=== PATIENT | female | born 1990 | race Caucasian/White ===

== ENCOUNTER 2022-05-23 11:04 | Outpatient (CLI) | payer OTHER, SELFPAY ==
--- OUTSIDE RECORDS SUMMARY | 2022-05-23 11:08 | XMS_ITS | Encounter Summary ---
:1990 Author Organization [facility] Address [address] [place] [address] Care Team Providers Name Role Phone Lashaun Kebede APRN, C.N.P., M.S.N. Primary Care Provi vane Encounter Details Date Type Department Care Team Description 08/24/2019 Nurse Triage Department of [facility] Ashley Wills, RRodrigueNRodrigue [facility] in [place], [place] [address] [place] [address] Social History Tobacco Use Types Packs/Day Years Used Date Smoking Tobacco: Never Smokeless Tobacco: Never Alcohol Use Standard Drinks/Week Comments Yes 2 (1 standard drink = 0.6 oz pure alcoho l) Alcohol Habits Answer Date Recorded How often do you have a drink containing alcohol? 2-4 times a month 05/02/2019 How many drinks containing alcohol do you have on a 1 or 2 05/02/2019 typical day when you are drinking? How often do you have six or more drinks on one Less than mo nthly 05/02/2019 occasion? Social Isolation Answer Date Recorded In a typical week, how many times do you More than three deb es a week 05/02/2019 talk on the phone with family, friends, or neighbors? How often do you get together with friends Twice a week 05/02/2019 or relatives? How often do you attend hindu or Never 2018 christianity services? Do you belong to any clubs or Yes 05/02/2019 organizations such as hindu groups, unions, fraternal or athletic groups, or school groups? How often do you attend meetings of the 1 to 4 times per yea r 05/02/2019 clubs or organizations you belong to? Are you now , , , 05/02/2019 , never or living with a partner? Physical Activity Answer Date Recorded On average, how many days per week do you engage in moderate to 2 days 05/02/2019 strenuous exercise (like walking fast, running, jogging, dancing, swimming, biking, or other activities that cause a light or heavy sweat)? On average, how many minutes do you engage in exercise at th is 30 min 05/02/2019 level? Stress Answer Date Recorded Do you feel stress - tense, restless, nervous, or anxious, R ather much 05/02/2019 or unable to sleep at night because your mind is troubled all the time - these days? Financial Resource Strain Answer Date Recorded How hard is it for you to pay for the very basics like [employer] hat hard 05/02/2019 food, housing, medical care, and heating? Intimate Partner Violence Answer Date Recorded Within the last year, have you been afraid of your partner o r No 05/02/2019 ex-partner? Within the last year, have you been humiliated or emotionall y No 05/02/2019 abused in other ways by your partner or ex-partner? Within the last year, have you been kicked, hit, slapped, or No 05/02/2019 otherwise physically hurt by your partner or ex-partner? Within the last year, have you been raped or forced to have any No 05/02/2019 kind of sexual activity by your partner or ex-partner? Food Insecurity Answer Date Recorded Within the past 12 months, you worried that your food would Never true 05/02/2019 run out before you got money to buy more. Within the past 12 months, the food you bought just didn't N ever true 05/02/2019 last and you didn't have money to get more. Transportation Needs Answer Date Recorded In the past 12 months, has lack of transportation kept you f rom No 05/02/2019 medical appointments or from getting medications? In the past 12 months, has lack of transportation kept you f rom No 05/02/2019 meetings, work, or getting things needed for daily living? Education Answer Date Recorded What is the highest level of school you have completed or 12 th grade 05/02/2019 the highest degree you have received? Sex Assigned at Date Recorded Female 08/04/2017 12:14 PM DYNAMICS AX TECHNICAL ARCHITECT documented as of this encounter Plan of Treatment Not on filedocumented as of this encounter Visit Diagnoses Not on filedocumented in this encounter Additional Health Concerns Assessment Noted Time PHQ-9 Depression Total Score: 05/06/2019 9:33 AM CD T documented as of this encounter Care Teams Sleeve Bottom Feller Relationship Specialty Start Date End Date Lashaun Kebede APRN, C.N.P., PCP - General Family Medicine 06/21/20 M.S.N. [address] [place] [address] documented as of this encounter
--- OUTSIDE RECORDS SUMMARY | 2022-05-23 11:08 | XMS_ITS | Encounter Summary ---
:1990 Author Organization [facility] Address [address] [place] [address] Care Team Providers Name Role Phone Joya Clark APRN, C.N.P., M.S.N. Primary Care Provider Reason for Visit Reason Onset Date Comments Testing For Upper Respiratory Virus Symptoms 07/30/2021 Encounter Details Date Type Department Care Team Description 07/30/2021 External Outreach Department of Austin Cook With And (Suspected) Exposure To COVID-19; Internal Medicine in J, D.O. Infection Upper Respiratory [place], [place] [address] [place] [phone] Social History Tobacco Use Types Packs/Day Years [...] or relatives? How often do you attend sabianist or Never 2018 advent services? Do you belong to any clubs or Yes 05/02/2019 organizations such as sabianist groups, unions, fraternal or athletic groups, or [...] to pay for the very basics like Somew hat hard 05/02/2019 food, housing, medical care, [...] at Date Recorded Female 08/04/2017 12:14 PM MANAGER NURSING HOME documented as of this encounter Progress Notes Marylu Solares R.N. - 07/30/2021 10:53 AM CST Encounter created for symptomatic infectious disease screening with possible COVID, Influenza, RSV, and/or Group A Strep testing. [facility] HOME documented in this encounter Miscellaneous Notes Result Encounter Note - Sheyla Howard R.N. - 08/01/2021 9:11 AM MANAGER NURSING HOME The patient will be contacted if they are eligible and appointments are available for Monoclonal Antibody Infusion and/or Remote Patient Monitoring. The [facility] ([facility]) sends general guidance about COVID-19 to all patients by letter or portal, except when a patient is hospitalized or resides in a jail. [facility] will call all adult patients at highest risk for severe complications of COVID-19 (MASS 3 or greater) and all who require an crisis manager. Any patient with a MASS score 1 or greater or a COVID-19 score 1 or greater may be at higher risk ofsevere disease. These patients will follow up directly with primary care. The primary care team willdecide if the patient needs a phone call or a follow up portal message to assess symptom severity, provide individualized guidance on symptom monitoring or symptom management, or to reinforce when to se ek care. [facility] encourages patients to follow up with their PCP with questions, worsening symptoms, or for symptom management. For questions, contact the [facility] ([facility]): Pager: [phone] In basket: P RST/[facility] COVID-19 POSITIVE Covid Care e-consult Components of the Monoclonal Antibody Selection Score (MASS) Compromised Immune System/Transplant = 4 points Chronic Kidney Disease on Dialysis = 4 points Age greater than or equal to 55 and chronic pulmonary disease = 3 points Age greater than or equal to 65 = 2 points Age greater than or equal to = 2 points Diabetes = 2 points Age greater than or equal to 55 AND cardiovascular disease = 2 points Age greater than or equal to 55 and hypertension = 1 point NOTE: At the time of testing, patients are instructed to obtain the result by calling the [employer] result line or by checking their online services account. GER NURSING HOME documented in this encounter Plan of Treatment Not on filedocumented as of this encounter Procedures Procedure Name Priority Date/Time Associated Diagnosis Comme nts INFLUENZA A/B AND Routine 07/31/2021 10:27 AM Infection Upper Results for this RSV, PCR, VARIES MANAGER NURSING HOME Respiratory procedure a re in the results section. SARS CORONAVIRUS-2 Routine 07/31/2021 10:27 AM Contact With An d Results for this RNA, V MANAGER NURSING HOME (Suspected) Exposure procedu re are in To COVID-19 the results section. documented in this encounter Results Influenza A/B and RSV, PCR, Varies (07/31/2021 10:27 AM MANAGER NURSING HOME) [facility] Method Time Signature Influenza A/B Swab, 08/02/2021 DTL and RSV, Nasopharynx 6:10 AM MANAGER NURSING HOME Source Influenza A, Undetected Undetected 08/02/2021 DTL PCR 6:10 AM MANAGER NURSING HOME Comment: Influenza A RNA absent. Influenza B, PCR Undetected Undetected 08/02/2021 6:10 AM CS T DTL Comment: Influenza B RNA absent. Respiratory Syncytial Virus, PCR Undetected Undetected 11/2021 6:10 AM MANAGER NURSING HOME DTL Comment: RSV RNA absent. ----ADDITIONAL INFORMATION---- This test has been modified from the man ufacturer's instructions. Its performance characteristics were determi deyvi by [facility] in a manner consistent with CLIA requirements. This test has not been cleared or approved by the U.S. Food and Drug Administration . Specimen Anatomical Collection Method Collection Time Receive d Time (Source) Location / / Volume Laterality Varies 07/31/2021 10:27 07/31/2021 (Nasopharynx) AM MANAGER NURSING HOME 10:20 PM MANAGER NURSING HOME Austin Cook D.O. LAB MICROBIOLOGY - GENERAL O SHELBY Performing Organization Address City/[facility]/ZIP Code Phon e Number [facility] - [address] [place], [place] [address] [facility] [place] [address] Laboratories-[facility] [address] [facility] (ABNORMAL) SARS Coronavirus-2 RNA, V Symptomatic (07/31/2021 10:27 AM MANAGER NURSING HOME) [facility] Method Time Signature SARS-CoV-2 Swab, 07/31/2021 MKTO Specimen Nasopharynx 11:50 PM Source MANAGER NURSING HOME SARS CoV-2 Detected (A) Undetected 07/31/2021 MKTO RNA, TMA 11:50 PM MANAGER NURSING HOME Comment: SARS-CoV-2 RNA present. ----ADDITIONAL INFORMATION---- This molecular amplification test was pe rformed using the Aptima SARS-CoV-2 assay ([employer] on the Duxters tem under emergency use authorization (EUA) by the U.S. Food and Drug Administ ration. Fact sheets for this EUA assay can be fo und at the following links: For Healthcare Providers: https://www.fd a.gov/media/860632/download For Patients: https://www.fda.gov/media/ 466362/download Specimen Anatomical Collection Method Collection Time Receive d Time (Source) Location / / Volume Laterality Varies 07/31/2021 10:27 07/31/2021 2:57 (Nasopharynx) AM MANAGER NURSING HOME PM MANAGER NURSING HOME Austin Cook D.O. LAB MICROBIOLOGY - GENERAL O SHELBY Performing Organization Address City/State/ZIP Code Phon e Number [facility]- [address] [place] [id number] [place] [address] System in [place] [address] [place] [address] documented in this encounter Visit Diagnoses Diagnosis Contact With And (Suspected) Exposure To COVID-19 Infection Upper Respiratory documented in this encounter Additional Health Concerns Infection Onset Date Last Indicated Resolved Time COVID19 Pending 07/30/2021 07/31/2021 07/31/2021 11:52 PM MANAGER NURSING HOME Assessment Noted Time PHQ-9 Depression Total Score: 10 05/06/2019 9:33 AM CD T documented as of this encounter Care Teams Sexual Abuse Counsellor Relationship Specialty Start Date End Date Joya Clark APRN, C.N.P., M.S.N. PCP - General 06/22/20 [address], [place] [address] documented as of this encounter
--- OUTSIDE RECORDS SUMMARY | 2022-05-23 11:08 | XMS_ITS | Encounter Summary ---
:1990 Author Organization [facility] Address [address] [place] [address] Care Team Providers Name Role Phone Lashaun Kebede APRN, C.N.P., M.S.N. Primary Care Provi vane Encounter Details Date Type Department Care Team Description 06/03/2019 Orders Only Department of [facility] Lashaun Kebede , Medicine, [facility], Monica PLAZA, M.S.N. in [facility] [address] [facility] [address] [place] [phone] (Wo rk) Social History Tobacco Use Types Packs/Day Years [...] or relatives? How often do you attend voodoo or Never 2018 mu-ism services? Do you belong to any clubs or Yes 05/02/2019 organizations such as voodoo groups, unions, fraternal or athletic groups, or [...] at Date Recorded Female 08/04/2017 12:14 PM CONDITIONING MACHINE OPERATOR documented as of this encounter Plan of Treatment Not on filedocumented as of this encounter Visit Diagnoses Not on filedocumented in this encounter Additional Health Concerns Assessment Noted Time PHQ-9 Depression Total Score: 10 05/06/2019 9:33 AM CD T documented as of this encounter Care Teams Firearms Inspector Relationship Specialty Start Date End Date Lashaun Kebede APRN, C.N.P., PCP - General Family Medicine 06/21/20 M.S.N. [address] [place] [address] documented as of this encounter
--- OUTSIDE RECORDS SUMMARY | 2022-05-23 11:08 | XMS_ITS | Encounter Summary ---
:1990 Author Organization [facility] Address [address] [place] [address] Care Team Providers Name Role Phone Lashaun Kebede APRN, C.N.P., M.S.N. Primary Care Provi vane Reason for Visit Reason Onset Date Comments Depression 09/29/2019 PHQ9 Follow-up 2nd A ttempt Encounter Details Date Type Department Care Team Description 09/29/2019 Clinical Communication Department of Caprice Kebdee (PHQ9 Family MedicineLashaun APRN, Follow-up 2nd [facility], in C.N.P., M.S. N. Attempt) [place], [place] [address] [facility] [address] [place] [phone] Social History Tobacco Use Types Packs/Day Years [...] or relatives? How often do you attend religious or Never 2018 anabaptism services? Do you belong to any clubs or Yes 05/02/2019 organizations such as religious groups, unions, fraternal or athletic groups, or [...] at Date Recorded Female 08/04/2017 12:14 PM SUPPLY CHAIN PROCUREMENT MANAGER documented as of this encounter Miscellaneous Notes Telephone Encounter - Mayra Olsen - 09/29/2019 7:56 AM CST PHQ9 Follow-up 2nd Attempt LY CHAIN PROCUREMENT MANAGER documented in this encounter Plan of Treatment Not on filedocumented as of this encounter Visit Diagnoses Not on filedocumented in this encounter Additional Health Concerns Assessment Noted Time PHQ-9 Depression Total Score: 10 05/06/2019 9:33 AM CD T documented as of this encounter Care Teams Lime Sludge Mixer Relationship Specialty Start Date End Date Lashaun Kebede APRN, C.N.P., PCP - General Family Medicine 06/21/20 M.S.N. [address] [place] [address] documented as of this encounter
--- OUTSIDE RECORDS SUMMARY | 2022-05-23 11:08 | XMS_ITS | Encounter Summary ---
:1990 Author Organization [facility] Address [address] [place] [address] Care Team Providers Name Role Phone Joya Clark APRN, C.N.PRodrigue, M.S.N. Primary Care Provider Reason for Referral Specialty Diagnoses / Procedures Referred By Contact Refer red To Contact Joya Clark APRN, C.N.PRodrigue, [facility] M.S.N. [address] [place] [phone] Referral ID Status Reason Start Date Expiration Date Visits Requ ested Visits Authorized RESS OPERATOR Encounter Details Date Type Department Care Team Description 06/26/2021 Orders Only [facility] Joya Clark APRN, C.N.P., M.S.N. [address] [phone] (Wo rk) Social History Tobacco Use Types [...] or relatives? How often do you attend yazidi or Never 2018 quaker services? Do you belong to any clubs or Yes 05/02/2019 organizations such as yazidi groups, unions, fraternal or athletic groups, or [...] at Date Recorded Female 08/04/2017 12:14 PM PREPRESS OPERATOR documented as of this encounter Plan of Treatment Scheduled Referrals Name Type Priority Associated Order Schedule Diagnoses Covid immunization Outpatient Referral Routine Ex pected: office visit Booster 021 (Approximate), Expires: 06/26/2022 documented as of this encounter Visit Diagnoses Not on filedocumented in this encounter Additional Health Concerns Assessment Noted Time PHQ-9 Depression Total Score: 10 05/06/2019 9:33 AM CD T documented as of this encounter Care Teams Colorer Hides And Skins Relationship Specialty Start Date End Date Joya Clark APRN, C.N.P., M.S.N. PCP - General 06/22/[address] [phone] documented as of this encounter
--- OUTSIDE RECORDS SUMMARY | 2022-05-23 11:08 | XMS_ITS | Encounter Summary ---
:1990 Author Organization [facility] Address [address] [place] [address] Care Team Providers Name Role Phone Joya Clark APRN, C.N.P., M.S.N. Primary Care Provider Reason for Visit Reason Onset Date Comments Outpatient COVID-19 Testing 06/24/2020 Encounter Details Date Type Department Care Team Description 06/24/2020 External Outreach Department of Austin Cook Infect ion Upper Internal Medicine in J, D.O. Respiratory (Primary [place], [place] [address] Dx) [address] [place] [phone] Social History Tobacco Use Types Packs/Day [...] or relatives? How often do you attend anabaptist or Never 2018 anabaptism services? Do you belong to any clubs or Yes 05/02/2019 organizations such as anabaptist groups, unions, fraternal or athletic groups, or [...] at Date Recorded Female 08/04/2017 12:14 PM BIOLOGY ADJUNCT INSTRUCTOR documented as of this encounter Progress Notes Tom Romero R.N. - 06/24/2020 11:54 AM CST Encounter created for the drive-through COVID-19 testing. OGY ADJUNCT INSTRUCTOR documented in this encounter Plan of Treatment Not on filedocumented as of this encounter Procedures Procedure Name Priority Date/Time Associated Comments Diagnosis SARS CORONAVIRUS 2 Routine 06/24/2020 11:57 Resul ts for this PCR DETECT, V AM BIOLOGY ADJUNCT INSTRUCTOR procedure are in the results section. documented in this encounter Results SARS Coronavirus 2 RNA Detection (06/24/2020 11:57 AM BIOLOGY ADJUNCT INSTRUCTOR) [facility] Method Time Signature SARS-CoV-2 Nasopharynx 06/25/2020 [facility] Specimen 4:48 AM BIOLOGY ADJUNCT INSTRUCTOR Source SARS-CoV-2 Undetected Undetected 06/25/2020 [facility] RNA by PCR 4:48 AM BIOLOGY ADJUNCT INSTRUCTOR Comment: SARS-CoV-2 RNA absent. This result does not rule out COVID-19 in the patient, as the sensitivity of the test depends o n the timing of the specimen collection and the quality of the specim en. Result should be correlated with patient's history and clinical presentat ion. ----ADDITIONAL INFORMATION---- This PCR test was performed using the co NaHere SARS-CoV-2 assay ([employer] on the tarsha 6800 System under emergency use authorization (EUA) by the U.S. Food and Drug Administ ration. Fact sheets for this assay can be found at the following links: For Healthcare Providers: https://www.[employer] a.gov/media/402732/download For Patients: https://www.fda.gov/media/ 265684/download Specimen Anatomical Collection Method Collection Time Receive d Time (Source) Location / / Volume Laterality Varies 06/24/2020 11:57 06/24/2020 AM BIOLOGY ADJUNCT INSTRUCTOR 10:16 PM BIOLOGY ADJUNCT INSTRUCTOR Austin Cook D.O. LAB MICROBIOLOGY - GENERAL O RDERABLES Performing Organization Address City/State/ZIP Code Phon e Number [facility] [address] [place] [address] SUPPORT [facility] [address] Laboratory Medicine and Pathology [address] [place] documented in this encounter Visit Diagnoses Diagnosis Infection Upper Respiratory - Primary documented in this encounter Additional Health Concerns Infection Onset Date Last Indicated Resolved Time COVID19 Pending 06/19/2020 06/19/2020 06/24/2020 11:55 AM BIOLOGY ADJUNCT INSTRUCTOR COVID19 Pending 06/24/2020 06/24/2020 06/24/2020 2:25 PM BIOLOGY ADJUNCT INSTRUCTOR Assessment Noted Time PHQ-9 Depression Total Score: 10 05/06/2019 9:33 AM CD T documented as of this encounter Care Teams Finishing Machine Operator Automatic Relationship Specialty Start Date End Date Joya Clark APRN, C.N.P., M.S.N. PCP - General 06/22/[address] [place] [address] documented as of this encounter
--- OUTSIDE RECORDS SUMMARY | 2022-05-23 11:08 | XMS_ITS | Encounter Summary ---
:1990 Author Organization [facility] Address [address] [place] [address] Care Team Providers Name Role Phone Lashaun Kebede APRN, C.N.P., M.S.N. Primary Care Provi vane Encounter Details Date Type Department Care Team Description 06/18/2020 Patient Self-Triage CONNECTED CARE Symptom Assistant Inventory Manager, Provider Social History Tobacco Use Types Packs/Day Years [...] or relatives? How often do you attend evangelical or Never 2018 scientology services? Do you belong to any clubs or Yes 05/02/2019 organizations such as evangelical groups, unions, fraternal or athletic groups, or [...] at Date Recorded Female 08/04/2017 12:14 PM KITCHEN WORK SUPERVISOR documented as of this encounter Plan of Treatment Not on filedocumented as of this encounter Visit Diagnoses Not on filedocumented in this encounter Additional Health Concerns Assessment Noted Time PHQ-9 Depression Total Score: 10 05/06/2019 9:33 AM CD T documented as of this encounter Care Teams Transitions Rn Care Coordinator Relationship Specialty Start Date End Date Lashaun Kebede APRN, C.N.P., PCP - General Family Medicine 06/21/20 M.S.N. [address] [place] [address] documented as of this encounter
--- OUTSIDE RECORDS SUMMARY | 2022-05-23 11:08 | XMS_ITS | Encounter Summary ---
:1990 Author Organization [facility] Address [address] [place] [address] Care Team Providers Name Role Phone Joya Clark APRN, C.N.P., M.S.N. Primary Care Provider Encounter Details Date Type Department Care Team Description 11/15/2020 Orders Only [facility] PCP [facility] Sa henry Lewis M.D. [address] [place], [place] [phone] (Wo rk) Social History Tobacco Use Types [...] or relatives? How often do you attend islam or Never 2018 hindu services? Do you belong to any clubs or Yes 05/02/2019 organizations such as islam groups, unions, fraternal or athletic groups, or [...] to pay for the very basics like [employer]w hat hard 05/02/2019 food, housing, medical care, [...] at Date Recorded Female 08/04/2017 12:14 PM APPLICATIONS TESTER documented as of this encounter Plan of Treatment Not on filedocumented as of this encounter Visit Diagnoses Not on filedocumented in this encounter Additional Health Concerns Assessment Noted Time PHQ-9 Depression Total Score: 10 05/06/2019 9:33 AM CD T documented as of this encounter Care Teams Tiller Worker Relationship Specialty Start Date End Date Joya Clark APRN, C.N.P., M.S.N. PCP - General 06/22/[address] [place] [phone] documented as of this encounter
--- OUTSIDE RECORDS SUMMARY | 2022-05-23 11:08 | XMS_ITS | Encounter Summary ---
:[address] [facility] Address [address] [place] [address] Care Team Providers Name Role Phone Lashaun Kebede APRN, C.N.P., M.S.N. Primary Care Provi vane Reason for Visit Reason Comments Annual Exam Appointment Request (Routine) - Closed Specialty Diagnoses / Procedures Referred By Contact Refer red To Contact Family Medicine Referral ID Status Reason Start Date Expiration Date Visits Requ ested Visits Authorized [id number] Closed 04/09/2019 04/08/2020 1 1 Encounter Details Date Type Department Care Team Description 05/06/2019 Comprehensive Visit Department of Family Kebede, General Medical Examination Adult (Primary Dx); Medicine, Cailin Cheatham APRN, Pruritu s Vagina; Clinic, in Monica Simeon, M.S .N. Bipolar Disorder Current Episode Depress ed Severe Without Psychotic Features (HCC); [place] [address] [facility] Anxiety Generalized Disorder; [address], [place] [id number] Social History Tobacco Use Types Packs/Day [...] or relatives? How often do you attend hoahaoism or Never 2018 religion services? Do you belong to any clubs or Yes 05/02/2019 organizations such as hoahaoism groups, unions, fraternal or athletic groups, or [...] at Date Recorded Female 08/04/2017 12:14 PM RECREATION COORDINATOR documented as of this encounter Last Filed Vital Signs Vital Sign Reading Time Taken Comments Blood Pressure 108/56 05/06/2019 8:12 AM CDT Pulse 86 05/06/2019 8:12 AM CDT Temperature 37.1 ??C (98.8 ??F) 05/06/2019 8:12 AM CDT Respiratory Rate - - Oxygen Saturation - - Inhaled Oxygen Concentration - - Weight 67.9 kg (149 lb 11.1 oz) 05/06/2019 8:12 AM CDT Height 167 cm (5' 5.75) 05/06/2019 8:12 AM CDT Body Mass Index 24.35 05/06/2019 8:12 AM CDT documented in this encounter Progress Notes Lashaun Kebede APRN, C.N.P., M.S.N. - 05/06/2019 8:30 AM CDT Chief Complaint Patient presents with ??? Annual Exam HISTORY OF PRESENT ILLNESS Perry is a very pleasant 29-year-old female who presents to the clinic today for her annual physical exam. She states that she has had a six-month history of external vaginal itching and discomfort. Shewas wondering if it was related to shaving or not shaving and did not find any significant difference between the two. She also thought it could possibly be yeast infections so used to yeast infection get about 2 weeks ago which did not seem to help the external vaginal symptoms. She also reports a history of her mood cycling up and down. She states that several weeks ago she had an episode of euphoria were she felt like an extra person.?? She states that during these episodes she tends to spend a lot of money. Over the past few weeks, she is in a more depressed episode and is reporting lack of interest and motivation. She is also feeling very irritable and is quick to anger. She also reports sleeping too much. She has been on several different medications in the past mostrecently sertraline, having stopped that over 1 year ago. Her mom is with her today and states that she has had similar symptoms of bipolar and was started on Prozac and is currently at 80 mg and has felt good relief. She is wondering since her mother has had good relief with Prozac, if it would be helpful for her as well. She is willing to try anything at this time. She denies any thoughts of hurting herself or others. She is due for removal of her Nexplanon on June 19. She is considering oral contraceptives or Depo-Provera injection. She has no further concerns. SYSTEMS REVIEW Answers for HPI/ROS submitted by the patient on 05/02/2019 No general issues: Yes No eye issues: Yes No ENT issues: Yes No heart issues: Yes No respiratory issues: Yes No GI issues: Yes Pain or stiffness in the joints: Yes Back pain/stiffness: Yes No skin issues: Yes No neurologic issues: Yes Excessive daytime sleepiness/tiredness: Yes Feeling nervous, anxious or on edge: Yes Not being able to stop or control worrying: Yes No blood/lymph issues: Yes Any abnormal vaginal bleeding: Yes Social, family, medical and surgical history reviewed. Socioeconomic History ??? Marital status: Single Spouse name: None ??? Number of children: None ??? Years of education: None ??? Highest education level: 12th grade Occupational History ??? [employer] Social Needs ??? Financial resource strain: Somewhat hard ??? Food insecurity: Worry: Never true Inability: Never true ??? Transportation needs: Medical: No Non-medical: No Tobacco Use ??? Smoking status: Never Smoker ??? Smokeless tobacco: Never Used Substance and Sexual Activity ??? Alcohol use: Yes Alcohol/week: 2.0 standard drinks Types: 2 Glasses of wine per week Frequency: 2-4 times a month Drinks per session: 1 or 2 Binge frequency: Less than monthly ??? Drug use: Yes Frequency: 7.0 times per week Types: Marijuana Comment: Used to sleep at night ??? Sexual activity: Yes Partners: Male control/protection: Implant Lifestyle ??? Physical activity: Days per week: 2 days Minutes per session: 30 min ??? Stress: Rather much Relationships ??? Social connections: Talks on phone: More than three times a week Gets together: Twice a week Attends religion service: Never Active member of club or organization: Yes Attends meetings of clubs or organizations: 1 to 4 times per year Relationship status: ??? Intimate partner violence: Fear of current or ex partner: No Emotionally abused: No Physically abused: No Forced sexual activity: No Patient Active Problem List Diagnosis ??? Depression Major One Episode Moderate (HCC) ??? Anxiety ??? Subdermal Implantable Contraceptive Insertion Family History Problem Relation Age of Onset ??? Ovarian cancer Grandmother ??? Breast cancer Aunt ??? Breast cancer Mother's Sister ??? Lung cancer Maternal Grandmother ??? Ovarian cancer Maternal Grandmother ??? Hypertension Father ??? Rheum arthritis Mother ??? Asthma Mother ??? Anxiety disorder Mother ??? Depression Mother Past Medical History: Diagnosis Date ??? Anxiety Generalized Disorder [id number]? Asthma NOS When I was very young, around 3-6 years of age ??? 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 Depressive Disorder [id number]? Pneumonia June 2013 Past Surgical History: Procedure Laterality Date ??? KNEE ARTHROSCOPY W/ MENISCECTOMY ??? OTHER SURGICAL HISTORY 1996 or 1997? Removed cartlidge in left knee No Known Allergies Current Outpatient Medications: ??? FLUoxetine (PROzac) 10 mg capsule, Take 1 capsule (10 mg total) by mouth daily for 14 days, THEN2 capsules (20 mg total) daily., Disp: 90 capsule, Rfl: 3 VITAL SIGNS BP 108/56 (Patient Position: Standing, Cuff Size: Regular) Pulse 86 Temp 37.1 ??C (Oral) Ht 167 cm Wt 67.9 kg BMI 24.35 kg/m?? PHYSICAL EXAMINATION General: This is a well-appearing adult female in no acute distress. She is alert and oriented to person, place and time. Skin: Visible skin is warm, dry, intact. Head: Normocephalic. Atraumatic. Eyes: No discharge or crusting. Conjunctivae clear. No scleral injection. PERRL. Ears: Canals clear. Tympanic membranes pearly kang without erythema or perforation bilaterally. Nose: Nares patent. Mucosa pink. Mouth: Mucosa and gingivae pink. Pharynx pink without exudate. Neck: Supple with full ROM. No masses, tenderness or lymphadenopathy. Lungs: Chest expansion symmetric. Normal respiratory effort. Lung sounds clear to auscultation bilaterally. Breasts: Symmetric without retraction, discharge, or lesions. Contour and consistency firm and homogeneous. No masses, tenderness or lymphadenopathy. Heart: S1-S2 with regular rate and rhythm. No murmurs, clicks or rubs. Abdomen: Soft and symmetric. No hepatosplenomegaly. Genitalia: External genitalia without lesions or discharge, erythematous from scratching. Internal genitalia- vaginal pineda pink, no lesions. Cervix: pink, no lesions or discharge. No adnexal masses orCMT. Peripheral Vascular: No edema. Peripheral pulses present 2+ and equal bilaterally. Musculoskeletal: Extremities have full ROM. Neurologic: DTR???s intact. IMPRESSION/REPORT/PLAN #1 General Medical Examination Adult - Pap smear: Today. - Colonoscopy: Start at age 50. - Mammogram: Start at age 40. - Immunizations: Up-to-date. Declines influenza. - Lipid Panel: Due 2020. - Glucose: Due 2020. - STD Screen: Declined. - Discussed the importance of healthy diet and exercise for overall well-being. - Recommend at least 30 minutes of aerobic exercise most days of the week. - Recommend 1200 mg of calcium daily. #2 Pruritus Vagina - Likely external irritation. - She is given a prescription for triamcinolone 0.025% cream to be applied twice daily or as needed. #3 Bipolar Disorder Current Episode Depressed Severe Without Psychotic Features (HCC) #4 Anxiety Generalized Disorder - Will try Prozac 10 mg once daily for 2 weeks, increasing to 20 mg daily thereafter. - Discussed potential side effects while starting the medication, onset to therapeutic efficacy between 4-6 weeks and the importance of taking this medication daily. - Will plan to recheck in 6 weeks. #5 Counseling Control - Return for removal of Nexplanon and initiation of another form of contraception no later than June 19, 2019. - Follow-up in 1 year, sooner if needed. - All questions have been answered and patient is in agreement with this plan. documented in this encounter Plan of Treatment Not on filedocumented as of this encounter Procedures Procedure Name Priority Date/Time Associated Diagnosis Comme nts THINPREP SCREEN HPV Routine 05/06/2019 8:55 AM General Medical Results for this REFLEX CDT Examination Adult procedure are in the results section. VAGINITIS PANEL Routine 05/06/2019 8:54 AM Pruritus Vagina Res ults for this CDT procedure are i n the results section. documented in this encounter Results ThinPrep Screen HPV Reflex (05/06/2019 8:55 AM CDT) Component Value Ref Test Analysis Performed Pathologis t Range Method Time At Signature 05/11/2019 [facility] 2:17 PM CDT Report SERGE Kline(ASCP) 05/11/2019 [facility] electronically I verify that I have examined all relevant slides/ma terials 2:17 PM signed by for the specimen(s) and rendered or confirmed the diagnosis. CDT Gross Description Received specimen 05/11/2019 [facility] Y in a ThinPrep 2:17 PM vial. CDT Pap Test Source Cervical/Endocervi 05/11/2019 [facility] liliana 2:17 PM CDT Clinical History na 05/11/2019 [facility] 2:17 PM CDT Menstrual na 05/11/2019 [facility] Status(LMP, PM, 2:17 PM ) CDT Hormone na 05/11/2019 [facility] Therapy/Contracep 2:17 PM tives CDT Interpretation Cervical/Endocervical ??(ThinPrep): 05/11/2019 [facility] Satisfactory for Evaluation 2:17 PM Negative for Intraepithelial Lesion or Malignancy CDT Specimen Anatomical Collection Method Collection Time Receive d Time (Source) Location / / Volume Laterality Varies 05/06/2019 8:55 AM 9 2:05 (Cervix/Endocerv CDT PM CDT ix) Narrative This result has an attachment that is no t available. Lashaun Kebede APRN, C.N.P., M.S.N. LAB PAP PATHD X ORDERABLES Performing Organization Address City/[facility]/ZIP Code Phon e Number [facility]- [address] [place] [address] [place] [address] System [facility] [address] [facility] Vaginitis Panel (05/06/2019 8:54 AM CDT) [facility] gist Method Time Signature Sherine species, Negative Negative 05/06/2019 [facility] DNA 11:47 AM CDT Gardnerella Negative Negative 05/06/2019 [facility] vaginalis, DNA 11:47 AM CDT Trichomonas Negative Negative 05/06/2019 [facility] vaginalis, DNA 11:47 AM CDT Specimen Anatomical Collection Method Collection Time Receive d Time (Source) Location / / Volume Laterality Swab (Vagina) 05/06/2019 8:54 AM 05/06/20 19 CDT 10:35 AM CDT Lashaun Kebede APRN, C.N.P., M.S.N. LAB MICROBIOL OGY - GENERAL ORDERABLES Performing Organization Address City/State/ZIP Code Phon e Number [facility] [address] [place] [address] [facility] [place] [address] System in [place] [address] documented in this encounter Visit Diagnoses Diagnosis General Medical Examination Adult - Prim jacob Pruritus Vagina Bipolar Disorder Current Episode Depress ed Severe Without Psychotic Features (HCC) Anxiety Generalized Disorder Counseling Control documented in this encounter Additional Health Concerns Assessment Noted Time PHQ-9 Depression Total Score: 10 05/06/2019 9:33 AM CD T documented as of this encounter Care Teams Ship'S Master Relationship Specialty Start Date End Date Lashaun Kebede APRN, C.N.P., PCP - General Family Medicine 06/21/[address] [place] [address] documented as of this encounter
--- OUTSIDE RECORDS SUMMARY | 2022-05-23 11:08 | XMS_ITS | Encounter Summary ---
:1990 Author Organization [facility] Address [address] [place] [address] Care Team Providers Name Role Phone Ana Quezada M.D. Primary Care Provider [phone] Reason for Visit Reason Comments Immunizations Rabies Appointment Request (Routine) - Closed Specialty Diagnoses / Procedures Referred By Contact Refer red To Contact Family Medicine Referral ID Status Reason Start Date Expiration Date Visits Requ ested Visits Authorized [id number] Closed 05/30/2018 05/30/2019 1 Encounter Details Date Type Department Care Team Description 07/15/2018 Nurse Only Department of [facility], Immuniz ations (Rabies) [facility] Jessica Zhou L.P.N. [facility], in [address], [place] [address] [facility] [address] [place] [address] Social History Tobacco Use Types Packs/Day [...] or relatives? How often do you attend buddhist or Never 2018 jewish services? Do you belong to any clubs or Yes 05/02/2019 organizations such as buddhist groups, unions, fraternal or athletic groups, or [...] or getting things needed for daily living? Sex Assigned at Date Recorded Female 08/04/2017 12:14 PM FIRST AID ATTENDANT documented as of this encounter Progress Notes Jessica Barnard L.P.N. - 07/15/2018 1:00 PM CST S: Patient presented to [facility] to get an immunization. B/A: Immunization provided and documented in immunization tab. R: Patient will report any reaction to PCP. Patient noted that she is being charged for the immunizations that are required for her schooling. Attempted to located the correct coding in previous visits for this vaccine series to no avail. When entering this vaccine it did prompt nurse to enter the vaccine via the MAR not the Immunization tab where other vaccine information would be entered. Patient also noted concerns regarding the nurse providing the previous vaccines which were addressed at today's visit and will be forwarded thru the proper channels. All of the patient's concerns were discussed and the patient was confident in the plan going forward. Patient will call with any further concerns. T AID ATTENDANT documented in this encounter Plan of Treatment Not on filedocumented as of this encounter Visit Diagnoses Diagnosis Need Vaccine Immunization Rabies - Prima ry documented in this encounter Additional Health Concerns Assessment Noted Time PHQ-9 Depression Total Score: 10 05/07/2017 1:51 PM CD T documented as of this encounter Care Teams Rv Repair Technician Relationship Specialty Start Date End Date Ana Quezada M.D. PCP - General 02/21/18 09/24/18 documented as of this encounter
--- OUTSIDE RECORDS SUMMARY | 2022-05-23 11:08 | XMS_ITS | Encounter Summary ---
:1990 Author Organization [facility] Address [address] [place] [address] Care Team Providers Name Role Phone Joya Clark APRN, C.NJhonny, M.S.N. Primary Care Provider Reason for Visit Reason Comments COVID Nurse Line Encounter Details Date Type Department Care Team Description 07/30/2021 Clinical Communication Division of Stephanie Ocampo COVI D Nurse Line [facility] R.N. Medicine, [facility] in [place], [place] [address] [place] [address] Social History Tobacco Use Types Packs/Day Years [...] or relatives? How often do you attend christianity or Never 2018 jewish services? Do you belong to any clubs or Yes 05/02/2019 organizations such as christianity groups, unions, fraternal or athletic groups, or [...] to pay for the very basics like Xap[employer] hat hard 05/02/2019 food, housing, medical care, [...] at Date Recorded Female 08/04/2017 12:14 PM HEAD PORTER documented as of this encounter Miscellaneous Notes Telephone Encounter - Andrea OcampoSandra sierra - 07/30/2021 10:32 AM CST COVID-19 Nurse Line Screening ASSESSMENT Initial Screening Pathway Select appropriate pathway: : Adult In the last 48 hours, have you had a fever* OR symptoms that are unrelated to a preexisting illness?: New cough,New sore throat,New loss of smell,New change or loss of taste sensation,New nausea,New vomiting (congestion) COVID Symptomatic Screening Do you have any of the following urgent symptoms?: No urgent symptoms noted (Continue Screening) Have you received a COVID-19 vaccine in the last 72 hours? : No vaccine received (Continue Screening) Have you had close contact* with a person who has a LABORATORY CONFIRMED case of COVID-19 in the past 14 days?: No (Continue Screening) Have you tested positive for COVID-19 in the last 45 days?: No. COVID-19 testing is indicated (Continue Screening for Additional Testing) Additional Screening for Influenza, RSV and Strep Select appropriate region: : [place] Do you have any of the following respiratory syntonical virus (RSV) complications? : No complications noted (Continue Screening) Do you have any of the following high risk influenza criteria?: Female less than 56 years and is or may be Based on your last response, you are considered high risk for Influenza complications and may benefit taking a medication called Tamiflu?? (Oseltamivir). Are you interested in pursuing a prescription for Tamiflu?? (Oseltamivir)?: No, patient declines. (Continue Screening) Are all of the following Strep criteria met? : No, all criteria are not met. Influenza testing is indicated. (End Screening) Symptom Onset Date of symptom onset: 07/25/21 Testing Recommendation Endpoint Is testing recommended? : Recommended to test Further Triage Needs Any further triage needs? : No further concerns noted. PLAN Endpoint recommendation: Symptomatic testing indicated, advised to be swabbed for COVID-19 and Influenza, sent to [facility] located at [address] [place] [address] ([facility]). An appointment is required for testing, please call [phone] Saturday-Saturday 7am to 6pm and Saturday & Saturday 9am to 4pm to schedule an appointment. Testing hours are 8am - 4:30pm daily. You can also schedule via your Patient Online Services account., Please avoid using public transportation per CDC recommendation. If you do not have personal transportation please self-quarantine until a personal transportation option is available. Standard Care Points -Get a COVID -19 vaccine as soon as you can if not fully vaccinated. -Wash hands frequently with soap and water, use hand community center director if soap and water aren't available. -Wear a mask over your nose and mouth to help protect yourself and others if not fully vaccinated and having no symptoms -Stay 6 feet between yourself and others who don't live with you. -Avoid crowds and poorly ventilated indoor spaces. -Seek emergent care if any of the following occur Trouble breathing Bluish lips or face Persistent pain or pressure in the chest New confusion or inability to rouse. -Notify your regular care provider of any new or worsening symptoms. Symptomatic Carepoints: Stay home and separate yourself from others and stay in a specific sick room if able. Avoid sharing personal or household items. Rest. Hydrate. Take Acetaminophen/Ibuprofen asneeded to control fever and muscles aches. Use over the counter medications as needed for other symptoms. If you have received a negative COVID-19 test result and continue to have new or worsening symptoms after 72 hours please call the COVID Nurse Line to assess if you need repeat testing or reach out to your Primary Care Provider for guidance. Education: Patient/caregiver able to teach back Patient agreeable to plan of care: Yes The following references were used: [facility] novel coronavirus (COVID- 19) resources CDC web site https://www.cdc.gov/coronavirus/2019-ncov/your-health/index.html Nursing judgement PORTER documented in this encounter Plan of Treatment Not on filedocumented as of this encounter Visit Diagnoses Not on filedocumented in this encounter Additional Health Concerns Assessment Noted Time PHQ-9 Depression Total Score: 10 05/06/2019 9:33 AM CD T documented as of this encounter Care Teams Baller Tender Relationship Specialty Start Date End Date Joya Clark APRN, C.N.P., M.S.N. PCP - General 06/22/[address], [place] [id number] documented as of this encounter
--- OUTSIDE RECORDS SUMMARY | 2022-05-23 11:08 | XMS_ITS | Encounter Summary ---
:1990 Author Organization [facility] Address [address] [place] [address] Care Team Providers Name Role Phone Lashaun Kebede APRN, C.N.P., M.S.N. Primary Care Provi vane Encounter Details Date Type Department Care Team Description 06/19/2020 Patient Self-Triage CONNECTED CARE Symptom Cook Night, Provider Social History Tobacco Use Types Packs/Day [...] or relatives? How often do you attend rastafari or Never 2018 bahai services? Do you belong to any clubs or Yes 05/02/2019 organizations such as rastafari groups, unions, fraternal or athletic groups, or [...] at Date Recorded Female 08/04/2017 12:14 PM PHYSICS PROFESSOR documented as of this encounter Plan of Treatment Not on filedocumented as of this encounter Visit Diagnoses Not on filedocumented in this encounter Additional Health Concerns Infection Onset Date Last Indicated Resolved Time COVID19 Pending 06/19/2020 06/19/2020 06/24/2020 11:55 AM PHYSICS PROFESSOR Assessment Noted Time PHQ-9 Depression Total Score: 10 05/06/2019 9:33 AM CD T documented as of this encounter Care Teams Sorter Upholstery Parts Relationship Specialty Start Date End Date Lashaun Kebede APRN, C.N.P., PCP - General Family Medicine 06/21/20 M.S.N. [address] [place] [id number] documented as of this encounter
--- OUTSIDE RECORDS SUMMARY | 2022-05-23 11:08 | XMS_ITS | Encounter Summary ---
:1990 Author Organization [facility] Address [address] [place] [address] Care Team Providers Name Role Phone Joya Clark APRN, C.NJhonny, M.S.N. Primary Care Provider Reason for Visit Reason Comments Aspiration Encounter Details Date Type Department Care Team Description 08/04/2020 Nurse Triage Department of [facility], Tom Frances, Aspiration Medicine in [place] [address] [address]LE[address]O [place] [address] Social History Tobacco Use Types Packs/Day [...] do you attend voodoo or Never 2018 confucianism services? Do you belong to any clubs [...] to pay for the very basics like Cirro hat hard 05/02/2019 food, housing, medical care, [...] at Date Recorded Female 08/04/2017 12:14 PM COMMUNICATIONS PROGRAMMER documented as of this encounter Miscellaneous Notes Telephone Encounter - Tom Paul RRodrigueN. - 08/04/2020 8:35 PM COMMUNICATIONS PROGRAMMER Chief Complaint / Reason for Call Patient is a 30 y.o. female calling regarding Aspiration. Assessment Concern: She said about 10 minutes ago she choked while eating a very small peace of meat. She is not having any difficulty breathing but still does feel like there maybe a small peace lodged in her throat. She was choking on it for a brief moment but did get the peace up and now just hasn't gotten the rest of it up, she feels like. She was coughing for about 10 mintues straight but feels like it didget better even before she got on the phone with me. Present for: 10-15 minutes Home cares tried: none Calling to request: If she needs the ER. The recommended disposition is See a health care provider within 4 hours. She will talk to her and see what they decide. Reason for Disposition ??? Coughing or other airway symptoms return Protocols used: CHOKING - INHALED FOREIGN [id number] Care Advice Patient/Caregiver understands and will follow care advice?: Yes, able to teach back SEE PCP WITHIN 4 HOURS (OR PCP TRIAGE): * IF OFFICE WILL BE OPEN: You need to be seen within the next 3 or 4 hours. Call your doctor (or JUNIOR QA ANALYST/PA) now or as soon as the office opens. * IF OFFICE WILL BE CLOSED AND NO PCP (PRIMARY CARE PROVIDER) SECOND-LEVEL TRIAGE: You need to be seen within the next 3 or 4 hours. A nearby Urgent Care Center (UCC) is often a good source of care. Another choice is to go to the ED. Go sooner if you become worse. * IF OFFICE WILL BE CLOSED AND PCP SECOND-LEVEL TRIAGE REQUIRED: You may need to be seen. Your doctor (or JUNIOR QA ANALYST/PA) will want to talk with you to decide what's best. I'll page the on-call provider now. Ifyou haven't heard from the provider (or me) within 30 minutes, call again. NOTE: If on-call providercan't be reached, send to UCC or ED. CALL BACK IF: * You become worse. UNICATIONS PROGRAMMER documented in this encounter Plan of Treatment Not on filedocumented as of this encounter Visit Diagnoses Not on filedocumented in this encounter Additional Health Concerns Assessment Noted Time PHQ-9 Depression Total Score: 10 05/06/2019 9:33 AM CD T documented as of this encounter Care Teams Respiratory Therapist Assistant Relationship Specialty Start Date End Date Joya Clark APRN, C.N.P., M.S.N. PCP - General 06/22/20 [address] [place] [address] documented as of this encounter
--- OUTSIDE RECORDS SUMMARY | 2022-05-23 11:08 | XMS_ITS | Clinical Summary ---
:1990 Author Organization [facility] Address [address] [place] [address] Care Team Providers Name Role Phone Joya Clark APRN, C.N.P., M.S.N. Primary Care Provider Source Comments Patient records contain information from all sites at [facility]. For routine questions regarding patient records, call [phone] during business hours, M-F 8:00 AM - 5:00 PM Central Time. Record requests for emergency care only can be directed to [phone] at any time.[facility] Allergies No known active allergies Medications Medication Sig Dispensed Refills Start Date End Date Status FLUoxetine (PROzac) 10 Take 1 capsule 90 capsule 3 05/06/2019 Active mg capsule (10 mg total) by mouth daily for 14 days, THEN 2 capsules (20 mg total) daily. triamcinolone Apply to affected 30 g 3 05/06/2019 Active (KENALOG) 0.025 % area twice daily cream or as needed. Active Problems Problem Noted Date Subdermal Implantable Contraceptive Insertion 06/19/20 16 Overview: Nexplanon implant. Needs to be removed o n or before 06/19/2019. Depression Major One Episode Moderate 05/14/2015 Overview: Depression Major One Episode Moderate Anxiety 05/01/2012 Encounters Date Type Specialty Care Team Description 02/27/2022 Orders Only Joya Clark APRN, C.N. P., M.S.N. from Last 3 Months Immunizations Name Administration Dates Next Due 4vHPV (discontinued) 12/31/2012, 02/21/2010, 10/18/2009 HepB, Unspecified 04/09/2002, 12/30/2001, 11/24/2001 MCV4 (Menactra) 10/07/2009 MCV4, Unspecified 10/07/2009 MMR 11/24/2001 Rabies (Imovax) 07/15/2018, 07/01/2018, 06/24/2018 Td Preservative Free (TENIVAC, DECAVAC) 06/21/2003 Tdap 12/31/2012 Family History Medical History Relation Name Comments Breast cancer Aunt Hypertension Father Imtiaz Dillard Ovarian cancer Grandmother Lung cancer Maternal Grandmother Debbie Ruiz Ovarian cancer Maternal Grandmother Debbie Ruiz Anxiety disorder Mother Xin Gilma Asthma Mother Xin Uvalde Depression Mother Xin Uvalde Rheum arthritis Mother Xin Uvalde Breast cancer Mother's Sister Therese Patrick Relation Name Status Comments Aunt Father Imtiaz Dillard Grandmother Maternal Grandmother Debbie Ruiz Mother Xin Uvalde Mother's Sister Therese Patrick Social History Tobacco Use Types Packs/Day Years [...] or relatives? How often do you attend yazidism or Never 2018 buddhism services? Do you belong to any clubs or Yes 05/02/2019 organizations such as yazidism groups, unions, fraternal or athletic groups, or [...] at Date Recorded Female 08/04/2017 12:14 PM RUG DESIGNER Last Filed Vital Signs Vital Sign Reading Time Taken Comments Blood Pressure 108/56 05/06/2019 8:12 AM CDT Pulse 86 05/06/2019 8:12 AM CDT Temperature 37.1 ??C (98.8 ??F) 05/06/2019 8:12 AM CDT Respiratory Rate 16 12/09/2017 10:05 AM CDT Oxygen Saturation 100% 12/06/2017 12:49 PM CDT Inhaled Oxygen Concentration - - Weight 67.9 kg (149 lb 11.1 oz) 05/06/2019 8:12 AM CDT Height 167 cm (5' 5.75) 05/06/2019 8:12 AM CDT Body Mass Index 24.35 05/06/2019 8:12 AM CDT Plan of Treatment Health Maintenance Due Date Last Done Comments Depression Monitoring (PHQ-9) 1990 HIV Screening 1990 Hepatitis C Screening 1992 COVID-19 Vaccine (4 - Booster 09/08/2021 07/14/2021, for Pfizer series) 12/05/2020, 11/16/2020 Influenza Vaccine (#1) 2022 06/05/2021 Cervical Cancer Screening 05/06/2022 05/06/2019, 06/13/2016, 12/30/2012 DTaP,Tdap,and Td Vaccines (4 11/02/2031 11/01/2021, - Td or Tdap) 12/31/2012, 06/21/2003 Hepatitis B Vaccines Completed 04/09/2002, 12/30/2001, 11/24/2001 Pneumococcal vaccine (0-64 Aged Out No lo nger eligible based years) on patient's age to complete this to [facility] Insurance Payer Benefit Plan / Subscriber ID Effective Phone Address T ype Group Dates [facility] [id number] 2019-Pres [phone] [address] PPO INDIVIDUAL PEAK ent [address] [place] [address] Care Teams Sample Case Porter Relationship Specialty Start Date End Date Joya Clark APRN, C.N.P., M.S.N. PCP - General 06/22/[address] [place] [address]
--- OUTSIDE RECORDS SUMMARY | 2022-05-23 11:08 | XMS_ITS | Encounter Summary ---
:1990 Author Organization [facility] Address [address] [place] [address] Care Team Providers Name Role Phone Ana Quezada M.D. 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 Appointment Request (Routine) - Closed Specialty Diagnoses / Procedures Referred By Contact Refer red To Contact Family Medicine Referral ID Status Reason Start Date Expiration Date Visits Requ ested Visits Authorized [id number] Closed 05/30/2018 05/30/2019 1 Encounter Details Date Type Department Care Team Description 07/01/2018 Nurse Only Department of Family Marylu Solares Nur se Visit (Patient is Medicine, Cailin R.N. here in the shot clinic Clinic, in [facility] [address] for her Rabies vaccine [place], [place] Pre exposure for vet [address] [address] [facility] [place] [address] [phone] Social History Tobacco Use Types Packs/Day Years [...] or relatives? How often do you attend worship or Never 2018 worship services? Do you belong to any clubs or Yes 05/02/2019 organizations such as worship groups, unions, fraternal or athletic groups, or [...] at Date Recorded Female 08/04/2017 12:14 PM CRAYON MOLDING MACHINE OPERATOR documented as of this encounter Plan of Treatment Not on filedocumented as of this encounter Visit Diagnoses Diagnosis Need Vaccine Immunization Rabies - Prima ry documented in this encounter Additional Health Concerns Assessment Noted Time PHQ-9 Depression Total Score: 10 05/07/2017 1:51 PM CD T documented as of this encounter Care Teams Certified Home Health Aide Relationship Specialty Start Date End Date Ana Quezada M.D. PCP - General 02/21/18 09/24/18 documented as of this encounter
--- OUTSIDE RECORDS SUMMARY | 2022-05-23 11:08 | XMS_ITS | Encounter Summary ---
:1990 Author Organization [facility] Address [address] [place] [address] Care Team Providers Name Role Phone Lashaun Kebede APRN, C.N.P., M.S.N. Primary Care Provi vane Reason for Visit Reason Onset Date Comments Outpatient COVID-19 Testing 06/19/2020 Encounter Details Date Type Department Care Team Description 06/19/2020 External Outreach Department of [facility] Infect ion Upper Internal Medicine in [facility] Respiratory (Primary [place], [place] [address] Dx) [address] [place] [phone] Social History Tobacco Use Types Packs/Day Years [...] or relatives? How often do you attend mormonism or Never 2018 scientologist services? Do you belong to any clubs or Yes 05/02/2019 organizations such as mormonism groups, unions, fraternal or athletic groups, or [...] at Date Recorded Female 08/04/2017 12:14 PM OCTAVE BOARD ASSEMBLER documented as of this encounter Progress Notes Vijaya Layne R.N. - 06/19/2020 9:43 AM CST Encounter created for the drive-through COVID-19 testing. VE BOARD ASSEMBLER documented in this encounter Plan of Treatment Not on filedocumented as of this encounter Visit Diagnoses Diagnosis Infection Upper Respiratory - Primary documented in this encounter Additional Health Concerns Infection Onset Date Last Indicated Resolved Time COVID19 Pending 06/19/2020 06/19/2020 06/24/2020 11:55 AM OCTAVE BOARD ASSEMBLER Assessment Noted Time PHQ-9 Depression Total Score: 10 05/06/2019 9:33 AM CD T documented as of this encounter Care Teams Hypo Dipper Relationship Specialty Start Date End Date Lashaun Kebede APRN, C.N.P., PCP - General Family Medicine 06/21/20 M.S.N. [address] [place] [address] documented as of this encounter
--- OUTSIDE RECORDS SUMMARY | 2022-05-23 11:08 | XMS_ITS | Encounter Summary ---
:1990 Author Organization [facility] Address [address] [place] [address] Care Team Providers Name Role Phone Ana Quezada M.D. Primary Care Provider [phone] Reason for Visit Reason Comments Med Refill Encounter Details Date Type Department Care Team Description 06/20/2018 Refill Department of [facility] Zac Quezada M.D. Med Refill Medicine, [facility], in [address] [place] [address] [address] [place] [address] [facility] [phone] Social History Tobacco Use Types Packs/Day Years [...] or relatives? How often do you attend baptist or Never 2018 congregational services? Do you belong to any clubs or Yes 05/02/2019 organizations such as baptist groups, unions, fraternal or athletic groups, or [...] at Date Recorded Female 08/04/2017 12:14 PM CATIA DESIGNER documented as of this encounter Miscellaneous Notes Telephone Encounter - Le Shipley L.PRodrigueN. - 06/20/2018 8:47 AM CST Noted. A DESIGNER documented in this encounter Plan of Treatment Not on filedocumented as of this encounter Visit Diagnoses Not on filedocumented in this encounter Additional Health Concerns Assessment Noted Time PHQ-9 Depression Total Score: 10 05/07/2017 1:51 PM CD T documented as of this encounter Care Teams Brush Fabrication Supervisor Relationship Specialty Start Date End Date Ana Quezada M.D. PCP - General 02/21/18 09/24/18 documented as of this encounter
--- OUTSIDE RECORDS SUMMARY | 2022-05-23 11:08 | XMS_ITS | Encounter Summary ---
:1990 Author Organization [facility] Address [address] [place] [address] Care Team Providers Name Role Phone Lashaun Kebede APRN, C.N.P., M.S.N. Primary Care Provi vane Encounter Details Date Type Department Care Team Description 06/19/2020 Patient Self-Triage CONNECTED CARE Symptom Sports Development Officer, Provider Social History Tobacco Use Types Packs/Day [...] or relatives? How often do you attend mosque or Never 2018 holiness services? Do you belong to any clubs or Yes 05/02/2019 organizations such as mosque groups, unions, fraternal or athletic groups, or [...] at Date Recorded Female 08/04/2017 12:14 PM NEURODIAGNOSTIC TECHNICIAN documented as of this encounter Plan of Treatment Not on filedocumented as of this encounter Visit Diagnoses Not on filedocumented in this encounter Additional Health Concerns Infection Onset Date Last Indicated Resolved Time COVID19 Pending 06/19/2020 06/19/2020 06/24/2020 11:55 AM NEURODIAGNOSTIC TECHNICIAN Assessment Noted Time PHQ-9 Depression Total Score: 10 05/06/2019 9:33 AM CD T documented as of this encounter Care Teams Fabric Stretcher Relationship Specialty Start Date End Date Lashaun Kebede APRN, C.N.P., PCP - General Family Medicine 06/21/20 M.S.N. [address] [place] [phone] documented as of this encounter
--- OUTSIDE RECORDS SUMMARY | 2022-05-23 11:08 | XMS_ITS | Encounter Summary ---
:1990 Author Organization [facility] Address [address] [place] [address] Care Team Providers Name Role Phone Joya Clark APRN, C.N.P., M.S.N. Primary Care Provider Encounter Details Date Type Department Care Team Description 07/31/2021 Admin Visit Department of Family Medicine, [address] [address] [facility] [phone] Social History Tobacco Use Types Packs/Day Years [...] or relatives? How often do you attend mormon or Never 2018 sikh services? Do you belong to any clubs or Yes 05/02/2019 organizations such as mormon groups, unions, fraternal or athletic groups, or [...] at Date Recorded Female 08/04/2017 12:14 PM SENIOR ENERGY MARKET COORDINATOR documented as of this encounter Plan of Treatment Not on filedocumented as of this encounter Visit Diagnoses Not on filedocumented in this encounter Additional Health Concerns Infection Onset Date Last Indicated Resolved Time COVID19 Pending 07/30/2021 07/31/2021 07/31/2021 11:52 PM SENIOR ENERGY MARKET COORDINATOR Assessment Noted Time PHQ-9 Depression Total Score: 10 05/06/2019 9:33 AM CD T documented as of this encounter Care Teams Arabic Translator Relationship Specialty Start Date End Date Joya Clark APRN, C.N.P., M.S.N. PCP - General 06/22/20 [address] [place] [address] documented as of this encounter
--- OUTSIDE RECORDS SUMMARY | 2022-05-23 11:08 | XMS_ITS | Encounter Summary ---
:1990 Author Organization [facility] Address [address] [place] [address] Care Team Providers Name Role Phone Ana Quezada M.D. 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 Appointment Request (Routine) - Closed Specialty Diagnoses / Procedures Referred By Contact Refer red To Contact Family Medicine Referral ID Status Reason Start Date Expiration Date Visits Requ ested Visits Authorized [id number] Closed 05/30/2018 05/30/2019 1 Encounter Details Date Type Department Care Team Description 06/24/2018 Nurse Only Department of Family Marylu Solares Nur se Visit (Patient is Medicine, Cailin R.N. here in shot clinic for Clinic, in [facility] [address] her Rabies vaccie today [place], [place] for hand riveter [address] [phone] schooling.) [place] [address] [phone] Social History Tobacco Use Types Packs/Day Years [...] or relatives? How often do you attend synagogue or Never 2018 church services? Do you belong to any clubs or Yes 05/02/2019 organizations such as synagogue groups, unions, fraternal or athletic groups, or [...] at Date Recorded Female 08/04/2017 12:14 PM ELECTRONICS DEPARTMENT MANAGER documented as of this encounter Plan of Treatment Not on filedocumented as of this encounter Visit Diagnoses Diagnosis Need Vaccine Immunization Rabies - Prima ry documented in this encounter Additional Health Concerns Assessment Noted Time PHQ-9 Depression Total Score: 10 05/07/2017 1:51 PM CD T documented as of this encounter Care Teams Licensed Optician Relationship Specialty Start Date End Date Ana Quezada M.D. PCP - General 02/21/18 09/24/18 documented as of this encounter
--- OUTSIDE RECORDS SUMMARY | 2022-05-23 11:08 | XMS_ITS | Encounter Summary ---
:1990 Author Organization [facility] Address [address] [place] [address] Care Team Providers Name Role Phone Joya Clark APRN, C.N.PRodrigue, M.S.N. Primary Care Provider Reason for Referral Outpatient (Routine) - Authorized Specialty Diagnoses / Procedures Referred By Contact Refer red To Contact Family Medicine Joya Clark APRN, DERECK [facility] C.N.P., M.S.N. [address] [address] Referral ID Status Reason Start Date Expiration Date Visits V isits Requested Authorized [id number] Authorized 02/27/2022 02/27/2023 1 1 Encounter Details Date Type Department Care Team Description 02/27/2022 Orders Only [facility] Joy[facility] Clark APRN, C.N.P., M.S.N. [address] [address] (Wo rk) Social History [...] or relatives? How often do you attend pentecostalism or Never 2018 baptism services? Do you belong to any clubs or Yes 05/02/2019 organizations such as pentecostalism groups, unions, fraternal or athletic groups, or [...] at Date Recorded Female 08/04/2017 12:14 PM FIRE TECHNOLOGY INSTRUCTOR documented as of this encounter Plan of Treatment Scheduled Referrals Name Type Priority Associated Diagnoses Order S [facility] Family Medicine Outpatient Referral Routine Expec joel: office visit 03/13/2022, (clinic) Expires: 08/26/2022 documented as of this encounter Visit Diagnoses Not on filedocumented in this encounter Additional Health Concerns Assessment Noted Time PHQ-9 Depression Total Score: 10 05/06/2019 9:33 AM CD T documented as of this encounter Care Teams Academic Affairs Director Relationship Specialty Start Date End Date Joya Clark, MELA, C.N.P., M.S.N. PCP - General 06/22/20 [address], [place] [address] documented as of this encounter
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
--- OUTSIDE RECORDS SUMMARY | 2022-05-23 11:09 | XMS_ITS | Encounter Summary ---
:1990 Author Organization [facility] Address [address] [place] [address] Care Team Providers Name Role Phone Alfonso Hill P.A.-C. Primary Care Provider Unavailable Encounter Details Date Type Department Care Team Description 07/22/2017 Nurse Triage NURSE TRIAGE Ju Estrella, R.N. Social History Tobacco Use Types Packs/Day Years Used Date Smoking Tobacco: Never Alcohol Habits Answer Date Recorded How often [...] or relatives? How often do you attend orthodox or Never 2018 sikh services? 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 PCP - General 01/10/17 02/20/18 documented as of this encounter
--- OUTSIDE RECORDS SUMMARY | 2022-05-23 11:09 | XMS_ITS | Encounter Summary ---
:1990 Author Organization [facility] Address [address] [place] [address] Care Team Providers Name Role Phone Unavailable Primary Care Provider Unavailable Encounter Details Date Type Department Care Team Description 12/31/2012 Hospital Encounter HX [facility] Jason Hernandez M.D. [address] [place] [address] Social History Tobacco Use Types Packs/Day [...] do you attend religious or Never 2018 orthodoxy services? 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 documented as of this encounter Nursing Notes Jaylon Reeves R.N. - 01/05/2013 6:16 PM CDT Lab results 12-30-12 Copy of lab results sent to patient's home address per Dr. Hernandez. Electronically Signed By: JAYLON REEVES On: 01/05/2013 06:16 PM [facility] Document Id: [id number] documented in this encounter Plan of Treatment Not on filedocumented as of this encounter Visit Diagnoses Not on filedocumented in this encounter
--- OUTSIDE RECORDS SUMMARY | 2022-05-23 11:09 | XMS_ITS | Encounter Summary ---
:1990 Author Organization [facility] Address [address] [place] [address] Care Team Providers Name Role Phone Unavailable Primary Care Provider Unavailable Encounter Details Date Type Department Care Team Description 11/03/2012 Hospital Encounter HX [facility] aJson Hernandez M.D. [address] [place] [address] Social History Tobacco Use Types Packs/Day [...] or relatives? How often do you attend scientologist or Never 2018 adventist services? 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 documented as of this encounter Progress Notes Jonatan Hernandez M.D. - 11/03/2012 10:43 AM CDT [id number] CHIEF COMPLAINT/REASON FOR VISIT Infected piercing. HISTORY OF PRESENT ILLNESS Oeohni-tsiu-wce female received 2 new piercings in her left mid ear on October 06. Things were fine until she changed the studs out in the past several days and developed what seems to be a cellulitis. She is extremely sensitive and tender. There is quite a bit of swelling, warmth, erythema and tenderness surrounding the 2 studs which she cannot even remove based upon the swelling. She does have a little bit of itching and irritation but this seems far more typical for an infection rather than a contact sensitivity to the james from the metal. In fact, she has a similar stud from exactly identical earring in her opposite ear with no reaction. CURRENT MEDICATIONS Reviewed EMR dated 11/03/2012. ALLERGIES None. VITAL SIGNS TEMPERATURE: 37.2 degrees Celsius. PULSE: 80. RESPIRATORY RATE: 16 BLOOD PRESSURE: 94/64. WEIGHT: 60 kg. PHYSICAL EXAMINATION Patient is well-developed, but quite uncomfortable with the left ear pain. Any manipulation of the outer ear caused her to pull away and become weepy and tearful. I had to have her try to pull the ear back so I could look at the backside. Which did not show any evidence for fluctuance, just a puffy pink, erythematous and tender skin surrounding the 2 mid-ear studs which were quite swollen and almost enveloping the studs themselves. IMPRESSION/REPORT/PLAN Piercing infection. Our plan was Augmentin 875 mg 2 times a day for 10 days with a short course of prednisone at 4 mg a day for 3 days. We did talk about a Rocephin injection but patient refused. She will use cold packs to try to shrink down the swelling so that she can get the earrings out and she plans to just let the holes heal over with this much trouble that they have been. She will follow up asneeded for lack of improvement or other concerns. Jonatan Hernandez M.D./tank Electronically Signed By: JONATAN HERNANDEZ MD On: 11/06/2012 07:37 PM Source: [facility] MHSDOLBEYNONRADSYS Document Id: [id number] documented in this encounter Miscellaneous Notes Miscellaneous - Jonatan Hernandez M.D. - 11/03/2012 10:52 PM CDT Ambulatory Depart Summary [address] [address] Visit Information Name: VALERI DILLARDANN [facility] Number: [id number] Visit Date: 11/03/2012 22:52:45 Attending Provider: JONATAN HERNANDEZ MD Primary Care Provider: JONATAN HERNANDEZ MD VALERI DILLARDANN has been given the following list of medications: Your Medications It is important to take your medications as directed. Use a pill box or chart to help remind you to take your medications. Please let your doctor or nurse know if you have problems taking your medications. Medication/Strength Dose Route Frequency Indications/Special Instructions/Comments amoxicillin-clavulanate (Augmentin 875 mg-125 mg oral tablet) 1 tab(s) Oral two times a day predniSONE (predniSONE 20 mg oral tablet) 40 mg Oral once a day for allergic reaction omeprazole (Prilosec 20 mg oral delayed release capsule) 20 mg Oral once a day fluticasone nasal (Flonase 50 mcg/inh nasal spray) 2 spray(s) Nostrils(Both) once a day venlafaxine (Effexor XR 37.5 mg oral capsule, extended release) 37.5 mg Oral once a day ondansetron (Zofran 4 mg oral tablet) 4 mg Oral every 8 hours as needed for Nausea norgestimate-ethinyl estradiol (Sprintec 0.25 mg-35 mcg oral tablet) 1 tab(s) Oral once a day naproxen (Aleve) Oral as needed Attention: If you have any medications at home that are not on this list, DO NOT take them until youcontact your provider for clarification. Additional Information: Source: [facility] POWERCHART Document Id: [id number] Miscellaneous - Jonatan Hernandez M.D. - 11/03/2012 10:52 PM CDT Ambulatory Patient Summary [facility] [address] [place] [address] Visit Information Name: VALERI DILLARD [facility] Number: [id number] Current Date: 11/03/2012 22:52:46 Physicians Attending Provider: JONATAN HERNANDEZ MD Primary Care Provider: JONATAN HERNANDEZ MD Your Medications Here is a list of your medications. It is important to take your medications as directed. Use a pillbox or chart to help remind you to take your medications. Please let your doctor or nurse know if you have problems taking your medications. Medication/Strength Dose Route Frequency Indications/Special Instructions/Comments amoxicillin-clavulanate (Augmentin 875 mg-125 mg oral tablet) 1 tab(s) Oral two times a day predniSONE (predniSONE 20 mg oral tablet) 40 mg Oral once a day for allergic reaction omeprazole (Prilosec 20 mg oral delayed release capsule) 20 mg Oral once a day fluticasone nasal (Flonase 50 mcg/inh nasal spray) 2 spray(s) Nostrils(Both) once a day venlafaxine (Effexor XR 37.5 mg oral capsule, extended release) 37.5 mg Oral once a day ondansetron (Zofran 4 mg oral tablet) 4 mg Oral every 8 hours as needed for Nausea norgestimate-ethinyl estradiol (Sprintec 0.25 mg-35 mcg oral tablet) 1 tab(s) Oral once a day naproxen (Aleve) Oral as needed Attention: If you have any medications at home that are not on this list, DO NOT take them until youcontact your provider for clarification. Your Allergies & Intolerances Substance Reaction Symptoms Category Comments No Known Allergies Drug Your Problem List Problem Status Onset Comments Rhinitis, Allergic Active 11/08/2011 Anxiety disorder NOS Active 05/01/2012 Your Upcoming Appointments Date Time Location Reason Provider No Appointments found Your Goals/Additional instructions: [facility] Document Id: [id number] Miscellaneous - Jonatan Hernandez M.D. - 11/03/2012 11:23 AM CDT School or Work Excuse School or Work Excuse Entered On: 11/03/2012 11:23 CDT Performed On: 11/03/2012 11:23 CDT by JONATAN HERNANDEZ MD School or Work Excuse Date Patient Seen : 11/03/2012 CDT Comment : Excuse from work today for MD appt JONATAN HERNANDEZ MD - 11/03/2012 11:23 CDT [facility] Document Id: [id number] CDT!4 Miscellaneous - Conversion, Historical Provider Ser - 11/03/2012 11:01 AM CDT Adult Director Sales And Trade Marketing Intake/History Adult Director Sales And Trade Marketing Intake/History Entered On: 11/03/2012 11:04 CDT Performed On: 11/03/2012 11:01 CDT by TAYA MICHEL Chief Complaint : infected piercing/left ear Temperature Oral : 37.2 DegC(Converted to: 99.0 DegF) Peripheral Pulse Rate : 80 /min Respiratory Rate : 16 /min Heart Rhythm : Regular Systolic Blood Pressure : 94 mmHg Diastolic Blood Pressure : 64 mmHg NIBP Mean : 74 mmHg BP Location : Right upper extremity Blood Pressure Cuff Size : Regular Oxygen Therapy : Room air Actual Weight : 59.9 kg(Converted to: 132 lb 1 oz) Weight Source : Standing scale Dosing Weight Clinic : 59.9 kg TAYA MICHEL Lauren 11/03/2012 11:01 CDT General Info Information Given By : Patient Preferred Communication Mode : Verbal Languages : Kazakh TAYA MICHEL Lauren 11/03/2012 11:01 CDT Subjective Pain Symptoms : Yes ESME MICHELLinden Aguilar 11/03/2012 11:01 CDT Pain Pain Assessment Grid Pain 1 Location : Ear Laterality : Left Intensity : 9 ImaniSAMAN TAYA Aguilar 11/03/2012 11:01 CDT Dependent Habits Tobacco Use/Currently Using : No Exposure to Tobacco Smoke : Other: NEVER Smoking Status : Never smoker Alcohol Use : No MOHITRACQUEL TAYA Aguilar 11/03/2012 11:01 CDT Caffeine Use Grid Caffeine Use : Current Type : Chocolate, Coffee, Soft drinks Frequency : Daily Amount : pop 2 cans per day MOHITRACQUEL TAYA Aguilar 11/03/2012 11:01 CDT Recreational Drug Use Grid Drug Use : None MARILU TAYA Aguilar 11/03/2012 11:01 CDT Source: [employer] Document Id: [id number] CDT!42 documented in this encounter Plan of Treatment Not on filedocumented as of this encounter Visit Diagnoses Not on filedocumented in this encounter
--- OUTSIDE RECORDS SUMMARY | 2022-05-23 11:09 | XMS_ITS | Encounter Summary ---
:1990 Author Organization [facility] Address [address] [place] [address] Care Team Providers Name Role Phone Unavailable Primary Care Provider Unavailable Encounter Details Date Type Department Care Team Description 07/06/2013 Hospital Encounter HX [facility] Jsaon Hernandez M.D. [address] [place] [address] Social History Tobacco Use Types Packs/Day [...] or relatives? How often do you attend zoroastrian or Never 2018 buddhism services? Do you belong to any clubs or Yes 05/02/2019 organizations such as zoroastrian groups, unions, fraternal or athletic groups, or [...] at Date Recorded Female 08/04/2017 12:14 PM HOME HEALTH AIDE CAREGIVER documented as of this encounter Last Filed Vital Signs Vital Sign Reading Time Taken Comments Blood Pressure 104/58 07/06/2013 9:52 AM HOME HEALTH AIDE CAREGIVER Pulse 80 07/06/2013 9:52 AM HOME HEALTH AIDE CAREGIVER Temperature - - Respiratory Rate 16 07/06/2013 9:52 AM HOME HEALTH AIDE CAREGIVER Oxygen Saturation - - Inhaled Oxygen Concentration - - Weight 57.2 kg (126 lb 1.7 oz) 07/06/2013 9:52 AM HOME HEALTH AIDE CAREGIVER Height - - Body Mass Index 21.01 12/30/2012 11:36 AM CDT documented in this encounter Medications at Time of Discharge Medication Sig Dispensed Refills Start Date End Date NAPROXEN SODIUM (ALEVE Take by mouth as 0 011 05/06/2019 ORAL) needed. documented as of this encounter Progress Notes Jonatan Hernandez M.D. - 07/06/2013 9:28 AM CST [id number] CHIEF COMPLAINT/REASON FOR VISIT Headache. HISTORY OF PRESENT ILLNESS 23-year-old female worked into my schedule today with what appears to be a viral respiratory infection. She states for 3 to 4 days she has had a headache at the base of her neck occipitally, otherwise nothing over her sinus region. She has had some nausea and an episode of vomiting this morning. She has had a fever as high as 101.5 and some myalgias, nothing else focal. She does have a cough as well but it is a dry cough and mother does not sound particularly concerned about that aspect. We did do arapid strep test which was negative. Otherwise, we did spend some time concentrating on the fact that she lost 15 pounds as a concerted effort and I am concerned about early signs and symptoms of an eating disorder. She is quite thin and still believes that she has to lose quite a bit of weight with the normal low abdominal bulge being something she really wants to get rid of. We did encourage her inthe fact that this was normal anatomy and should not be something she can diet away. She has not hada menstrual period for 3 months. This could be related to her extensive dieting efforts, which probably began in response to a relationship that went sour. She did start her control pills the previous week and she will contact me if she does not have a period in 30 days. MEDICATIONS Reviewed EMR dated 07/06/2013. ALLERGIES None. VITAL SIGNS TEMPERATURE: 37.1 Celsius. PULSE: 80. RESPIRATORY RATE: 16. BLOOD PRESSURE: 104/58. WEIGHT: 57.2 kg. PHYSICAL EXAMINATION Patient is well developed, in no apparent distress. ENT: TMs translucent. Throat clear. NECK: Supple without adenopathy. LUNGS: Clear. CARDIAC: Regular rate and rhythm without murmur. ABDOMEN: Soft, nontender without mass. EXTREMITIES: Unremarkable. The patient had full range of motion of her neck, nothing to make us think of a meningitis syndrome. IMPRESSION/REPORT/PLAN Upper respiratory infection, likely viral. We did talk about further workup including chest x-ray, CBC with differential. Urinalysis and the like, but mother and patient declined with my suspicion thatthat would have a low yield. We advised rest as much as possible and also make amends to her eating issues. I offered counseling if desired. Otherwise, followup as needed. Jonatan Hernandez M.D./lonnie Electronically Signed By: JONATAN HERNANDEZ MD On: 07/08/2013 11:14 AM Source: [facility] MHSDOLBEYNONRADSYS Document Id: [id number] HEALTH AIDE CAREGIVER documented in this encounter Procedure Notes Shama Alanis LRodrigueP.N. - 07/06/2013 10:51 AM CST Rapid Strep A Screen POC Rapid Strep A Screen POC Entered On: 07/06/2013 10:51 HOME HEALTH AIDE CAREGIVER Performed On: 07/06/2013 10:51 HOME HEALTH AIDE CAREGIVER by SHAMA ALANIS Rapid Strep A Screen POC Rapid Strep A Screen POC : Negative Internal QC : Pass SHAMA ALANIS - 07/06/2013 10:51 HOME HEALTH AIDE CAREGIVER Source: [facility] POWERCHART Document Id: [id number] HOME HEALTH AIDE CAREGIVER!4 HEALTH AIDE CAREGIVER documented in this encounter Miscellaneous Notes Miscellaneous - Jonatan Hernandez M.D. - 07/13/2013 4:45 PM CST Communication Note Communication Note Entered On: 07/13/2013 16:45 HOME HEALTH AIDE CAREGIVER Performed On: 07/13/2013 16:45 HOME HEALTH AIDE CAREGIVER by JONATAN HERNANDEZ MD Communication Assessment Communication Note : Excuse from work today due to respiratory illness. JONATAN HERNANDEZ MD - 07/13/2013 16:45 HOME HEALTH AIDE CAREGIVER [facility] Document Id: [id number] HOME HEALTH AIDE CAREGIVER!3 HEALTH AIDE CAREGIVER Miscellaneous - Jonatan Hernandez M.D. - 07/08/2013 12:03 PM CST Communication Note Communication Note Entered On: 07/08/2013 12:05 HOME HEALTH AIDE CAREGIVER Performed On: 07/08/2013 12:03 HOME HEALTH AIDE CAREGIVER by JONATAN HERNANDEZ MD Communication Assessment Communication Note : I saw Valeri for an influenza like respiratory infection this week andshe should be excused from work today 07/08/2013 but can return tomorrrow. JONATAN HERNANDEZ MD - 07/08/2013 12:03 HOME HEALTH AIDE CAREGIVER [facility] Document Id: [id number] HOME HEALTH AIDE CAREGIVER!3 HEALTH AIDE CAREGIVER Miscellaneous - Jonatan Hernandez M.D. - 07/06/2013 11:02 PM CST Ambulatory Patient Summary [facility] [address] [place] [address] Visit Information Name: CHRISTOPHEPONCHOMigue STAFFORD [facility] Number: [id number] Current Date: 07/06/2013 23:02:21 Physicians Attending Provider: JONATAN HERNANDEZ MD Primary Care Provider: JONATAN HERNANDEZ MD VALERI DILLARDANN has been given the following list of follow-up instructions, medication list, and patient education materials: Follow-up Instructions Your Medications Here is a list of your medications. It is important to take your medications as directed. Use a pillbox or chart to help remind you to take your medications. Please let your doctor or nurse know if you have problems taking your medications. Medication/Strength How to Take Indications/Special Instructions/Comments/Notes for Patient Medication Changes/Routing fluoxetine (Prozac 20 mg oral capsule) 1 cap, Oral, once a day fluticasone nasal (Flonase 50 mcg/inh nasal spray) 2 [place](s), Nostrils(Both), once a day naproxen (Aleve) Oral, as needed norgestimate-ethinyl estradiol (Sprintec 0.25 mg-35 mcg oral tablet) 1 Tablet(s), Oral, once a day omeprazole (Prilosec 20 mg oral delayed release capsule) 1 cap, Oral, once a day ondansetron (Zofran 4 mg oral tablet) 1 Tablet(s), Oral, every 8 hours as needed for Nausea Stop Taking the Following Medications: Medication list as of 07-06-13 23:02 Attention: If you have any medications at home that are not on this list, DO NOT take them until youcontact your provider for clarification. Give a copy of your medication list to your primary care provider. Update your medication list any time medications or doses are changed and carry your medication list at all times in case of emergency. Your Allergies & Intolerances Substance Reaction Symptoms Category Comments No Known Allergies Drug Your Problem List Problem Status Onset Comments Rhinitis, Allergic Active 11/08/2011 Anxiety disorder NOS Active 05/01/2012 Your Upcoming Appointments Date Time Location Reason Provider No Appointments found Attention: Contact your local Clinic if further appointment detail needed. Your Goals/Additional instructions: Source: [facility] POWERCHART Document Id: [id number] HEALTH AIDE CAREGIVER Miscellaneous - Jonatan Hernandez M.D. - 07/06/2013 11:02 PM CST Ambulatory Depart Summary [facility] [address] [place] [id number] Visit Information Name: CHRISTOPHEVALERIANN [facility] Number: [id number] Visit Date: 07/06/2013 23:02:18 Attending Provider: JONATAN HERNANDEZ MD Primary Care Provider: JONATAN HERNANDEZ MD VALERI DILLARD has been given the following list of medications: Your Medications It is important to take your medications as directed. Use a pill box or chart to help remind you to take your medications. Please let your doctor or nurse know if you have problems taking your medications. Medication/Strength How to Take Indications/Special Instructions/Comments/Notes for Patient Medication Changes/Routing fluoxetine (Prozac 20 mg oral capsule) 1 cap, Oral, once a day fluticasone nasal (Flonase 50 mcg/inh nasal spray) 2 [place](s), Nostrils(Both), once a day naproxen (Aleve) Oral, as needed norgestimate-ethinyl estradiol (Sprintec 0.25 mg-35 mcg oral tablet) 1 Tablet(s), Oral, once a day omeprazole (Prilosec 20 mg oral delayed release capsule) 1 cap, Oral, once a day ondansetron (Zofran 4 mg oral tablet) 1 Tablet(s), Oral, every 8 hours as needed for Nausea Stop Taking the Following Medications: Medication list as of 07-06-13 23:02 Attention: If you have any medications at home that are not on this list, DO NOT take them until youcontact your provider for clarification. Give a copy of your medication list to your primary care provider. Update your medication list any time medications or doses are changed and carry your medication list at all times in case of emergency. Additional Information: Source: [facility] POWERCHART Document Id: [id number] HEALTH AIDE CAREGIVER Miscellaneous - Shama Alanis, L.P.N. - 07/06/2013 9:52 AM CST Adult Van Cdl Driver Intake/History Adult Van Cdl Driver Intake/History Entered On: 07/06/2013 9:57 HOME HEALTH AIDE CAREGIVER Performed On: 07/06/2013 9:52 HOME HEALTH AIDE CAREGIVER by SHAMA ALANIS Intake Chief Complaint : headache at base of neck- 3-4 days, started feeling nausea this Satuarday, fever last night 101.5 and this am 100.9, vomiting Temperature Oral : 37.1 DegC(Converted to: 98.8 DegF) Peripheral Pulse Rate : 80 /min Respiratory Rate : 16 /min Heart Rhythm : Regular Systolic Blood Pressure : 104 mmHg Diastolic Blood Pressure : 58 mmHg NIBP Mean : 73 mmHg BP Location : Right upper extremity Blood Pressure Cuff Size : Regular Oxygen Therapy : Room air Actual Weight : 57.2 kg(Converted to: 126 lb 2 oz) Weight Source : Standing scale Dosing Weight Clinic : 57.2 kg SHAMA ALANIS 07/06/2013 9:52 HOME HEALTH AIDE CAREGIVER General Info Information Given By : Patient Preferred Communication Mode : Verbal Languages : Croatian SHAMA ALANIS 07/06/2013 9:52 HOME HEALTH AIDE CAREGIVER Subjective Pain Symptoms : Yes SHAMA ALANIS 07/06/2013 9:52 HOME HEALTH AIDE CAREGIVER Pain Pain Assessment Grid Pain 1 Location : Head Laterality : Bilateral (Comment: base of neck [SHAMA ALANIS - 07/06/2013 9:52 HOME HEALTH AIDE CAREGIVER] ) Time Pattern : Constant Onset : Sudden Quality : Aching Pain Radiation : No Aggravating Factors : None Alleviating Factors : None SHAMA ALANIS - 07/06/2013 9:52 HOME HEALTH AIDE CAREGIVER Dependent Habits Tobacco Use/Currently Using : No Exposure to Tobacco Smoke : Other: NEVER Smoking Status : Never smoker SHAMA ALANIS 07/06/2013 9:52 HOME HEALTH AIDE CAREGIVER Caffeine Use Grid Caffeine Use : Current Type : Chocolate, Coffee, Soft drinks Frequency : Daily Amount : pop 2 cans per day SHAMA ALANIS 07/06/2013 9:52 HOME HEALTH AIDE CAREGIVER Recreational Drug Use Grid Drug Use : None SHAMA ALANIS 07/06/2013 9:52 HOME HEALTH AIDE CAREGIVER Source: [facility] POWERCHART Document Id: [id number] HOME HEALTH AIDE CAREGIVER!46 HEALTH AIDE CAREGIVER documented in this encounter Plan of Treatment Not on filedocumented as of this encounter Procedures Procedure Name Priority Date/Time Associated Diagnosis Comme nts RAPID STREP A Routine 07/06/2013 1:07 PM Results for this SCREEN HOME HEALTH AIDE CAREGIVER procedure are i n the results section. documented in this encounter Results Rapid Strep A Screen (07/06/2013 1:07 PM HOME HEALTH AIDE CAREGIVER) [facility] Method Time Signature HXRapid Strep POWERCHART Confirmation HXFinal Negative for POWERCHART Group A Strep by culture. Specimen (Source) Anatomical Collection Method Collection Time Re ceived Time Location / / Volume Laterality Throat 07/06/2013 1:07 PM HOME HEALTH AIDE CAREGIVER Historical Provider LAB MICROBIOLOGY - GENERAL O RDERABLES Performing Organization Address City/State/ZIP Code Phon e Number POWERCHART documented in this encounter Visit Diagnoses Not on filedocumented in this encounter
--- OUTSIDE RECORDS SUMMARY | 2022-05-23 11:09 | XMS_ITS | Encounter Summary ---
:1990 Author Organization [facility] Address [address] [place] [address] Care Team Providers Name Role Phone Unavailable Primary Care Provider Unavailable Encounter Details Date Type Department Care Team Description 10/24/2012 Hospital Encounter HX [facility] Jason Hernandez M.D. [address] [place] [address] Social History Tobacco Use Types Packs/Day [...] or relatives? How often do you attend alevism or Never 2018 worship services? Do you belong to any clubs or Yes 05/02/2019 organizations such as alevism groups, unions, fraternal or athletic groups, or [...] at Date Recorded Female 08/04/2017 12:14 PM CATTYMAN documented as of this encounter Last Filed Vital Signs Vital Sign Reading Time Taken Comments Blood Pressure 108/58 10/24/2012 8:18 AM CDT Pulse 64 10/24/2012 8:18 AM CDT Temperature - - Respiratory Rate 20 10/24/2012 8:18 AM CDT Oxygen Saturation - - Inhaled Oxygen Concentration - - Weight 60.3 kg (132 lb 15 oz) 10/24/2012 8:18 AM CDT Height - - Body Mass Index - - documented in this encounter Medications at Time of Discharge Medication Sig Dispensed Refills Start Date End Date NAPROXEN SODIUM (ALEVE Take by mouth as 0 011 05/06/2019 ORAL) needed. documented as of this encounter Progress Notes Tanmay Hernandez M.D. - 10/24/2012 7:49 AM CDT [id number] CHIEF COMPLAINT/REASON FOR VISIT Dyspepsia. HISTORY OF PRESENT ILLNESS Pmaajx-yijy-eww female presents with nausea and dyspepsia for the past several weeks. She does have a history of anxiety disorder. Her pain is present in the left upper quadrant of her abdomen and she feels some pain and then will vomit. Food often brings on symptoms. She is not a smoker and really does not have any other significant risk factors for GE reflux or dyspepsia other than quite a bit of stress at the present time. Sometimes she will have some irritable bowel symptoms as well in the form of diarrhea. She has had no blood in her stools or vomit and she has had no chest pain, shortness of breath or cardiorespiratory symptoms. She has no symptoms below the umbilicus as everything is in theleft upper quadrant with no radicular pattern. CURRENT MEDICATIONS Reviewed in EMR dated 10/24/2012. ALLERGIES None. VITAL SIGNS TEMPERATURE: 36.8 Celsius. PULSE: 64. RESPIRATORY: 20. BLOOD PRESSURE: 108/58. WEIGHT: 60 kg. PHYSICAL EXAMINATION Patient is in no apparent distress. ENT: TMs and throat were clear. LUNGS: Clear. CARDIAC: Regular rate and rhythm without murmur. ABDOMEN: Soft, nontender without organomegaly. IMPRESSION/REPORT/PLAN Dyspepsia. Our plan was Prilosec 20 mg a day for the next 30 days. If not improved will move forwardwith further workup to include laboratories and probable upper endoscopy and she acknowledges this plan. In the meantime she also has some Zofran available for nausea if needed and will try to get rid of some of the stressors in her life. She is on Effexor medications. Tanmay Hernandez M.D./brown Electronically Signed By: TANMAY HERNANDEZ MD On: 10/29/2012 06:33 PM Source: [facility] MHSDOLBEYNONRADSYS Document Id: [id number] documented in this encounter Miscellaneous Notes Miscellaneous - Tanmay Hernandez M.D. - 10/25/2012 9:53 PM CDT Ambulatory Patient Summary [facility] [address] [place] [id number] Visit Information Name: VALERI DILLARD [facility] Number: [id number] Current Date: 10/25/2012 21:53:02 Physicians Attending Provider: TANMAY HERNANDEZ MD Primary Care Provider: TANMAY HERNANDEZ MD Your Medications Here is a list of your medications. It is important to take your medications as directed. Use a pillbox or chart to help remind you to take your medications. Please let your doctor or nurse know if you have problems taking your medications. Medication/Strength Dose Route Frequency Indications/Special Instructions/Comments omeprazole (Prilosec 20 mg oral delayed release [...] No Appointments found Your Goals/Additional instructions: Source: [facility] The 3DoodlerCHART Document Id: [id number] Miscellaneous - Tanmay Hernandez M.D. - 10/25/2012 9:53 PM CDT Ambulatory Depart Summary [facility] [address] [address] Visit Information Name: VALERI DILLARD [facility] Number: [id number] Visit Date: 10/25/2012 21:53:01 Attending Provider: TANMAY HERNANDEZ MD Primary Care Provider: TANMAY HERNANDEZ MD PONCHO DILLARDMigue STAFFORD has been given the following list of medications: Your Medications It is important to take your medications as directed. Use a pill box or chart to help remind you to take your medications. Please let your doctor or nurse know if you have problems taking your medications. Medication/Strength Dose Route Frequency Indications/Special Instructions/Comments omeprazole (Prilosec 20 mg oral delayed release [...] your provider for clarification. 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 Intake/History Entered On: 10/24/2012 8:22 CDT Performed On: 10/24/2012 8:18 CDT by TAYA MICHEL Intake Chief Complaint : Nausea for the last few weeks/feeling ill Temperature Oral : 36.8DegC(Converted to: 98.2DegF) Peripheral Pulse Rate : 64/min Respiratory Rate : 20/min Heart Rhythm : Regular Systolic Blood Pressure : 108mmHg Diastolic Blood Pressure : 58mmHg NIBP Mean : 75mmHg BP Location : Right upper extremity Blood Pressure Cuff Size : Regular Oxygen Therapy : Room air Actual Weight : 60.3kg(Converted to: 132lb 15oz) Weight Source : Standing scale Dosing Weight Clinic : 60.30kg TAYA MICHEL - 10/24/2012 8:18 CDT General Info Information Given By : Patient Preferred Communication Mode : Verbal Languages : Cymro TAYA MICHEL - 10/24/2012 8:18 CDT Subjective Pain Symptoms : No TAYA MICHEL - 10/24/2012 8:18 CDT Dependent Habits Tobacco Use/Currently Using : No Exposure to Tobacco Smoke : Other: NEVER Smoking Status : Never smoker Alcohol Use : No TAYA MICHEL - 10/24/2012 8:18 CDT Caffeine Use Grid Caffeine Use : Current Type : Chocolate, Coffee, Soft drinks Frequency : Daily Amount : pop 2 cans per day TAYA MICHEL - 10/24/2012 8:18 CDT Recreational Drug Use Grid Drug Use : None TAYA MICHEL - 10/24/2012 8:18 CDT Allergy Allergies (Active) NKA Estimated Onset Date: Unspecified ; Created By: KIRSTEN SILVERIO; Reaction Status: Active ; Category: Drug ; Substance: NKA ; Type: Allergy ; Updated By: KIRSTEN SILVERIO; Reviewed Date: 10/24/2012 8:18 CDT Source: [facility] POWERCHART Document Id: [id number] Miscellaneous - Conversion, Historical Provider Ser - 10/24/2012 8:18 AM CDT Health Assessment Health Assessment Entered On: 10/24/2012 8:22 CDT Performed On: 10/24/2012 8:18 CDT by TAYA MICHEL Health Assessment Complete Health Assessment Complete or Modified : Annual Health Assessment Annual Health Assessment Completed : Yes TAYA MICHEL - 10/24/2012 8:18 CDT Nutrition Nutrition Risk Factors by History Adult : None TAYA MICHEL - 10/24/2012 8:18 CDT Functional Current Daily Living Assistance : None TAYA MICHEL 10/24/2012 8:18 CDT Dependent Habits Tobacco Use/Currently Using : No Exposure to Tobacco Smoke : Other: NEVER Smoking Status : Never smoker TAYA MICHEL - 10/24/2012 8:18 CDT Caffeine Use Grid Caffeine Use : Current Type : Chocolate, Coffee, Soft drinks Frequency : Daily Amount : pop 2 cans per day TAYA MICHEL - 10/24/2012 8:18 CDT Recreational Drug Use Grid Drug Use : None TAYA MICHEL - 10/24/2012 8:18 CDT Psychosocial Domestic Abuse Concerns : None TAYA MICHEL - 10/24/2012 8:18 CDT Advance Directive Advanced Directives : No TAYA MICHEL - 10/24/2012 8:18 CDT Educ Needs Learning Style Preference Adult Grid Patient : None, Demonstration, Printed materials, Verbal explanation, Video/Educational TV Family : None TAYA MICHEL - 10/24/2012 8:18 CDT Source: [facility] POWERCHART Document Id: [id number] documented in this encounter Plan of Treatment Not on filedocumented as of this encounter Visit Diagnoses Not on filedocumented in this encounter
--- OUTSIDE RECORDS SUMMARY | 2022-05-23 11:09 | XMS_ITS | Encounter Summary ---
:1990 Author Organization [facility] Address [address] [place] [address] Care Team Providers Name Role Phone Unavailable Primary Care Provider Unavailable Encounter Details Date Type Department Care Team Description 03/10/2013 Hospital Encounter HX [facility] Jason Hernandez M.D. [address] [place] [address] Social History Tobacco Use Types Packs/Day [...] do you attend voodoo or Never 2018 anglican services? 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 documented as of this encounter Progress Notes Jonatan Hernandez M.D. - 03/10/2013 9:03 AM CDT [id number] CHIEF COMPLAINT/REASON FOR VISIT Personal. HISTORY OF PRESENT ILLNESS Iilhir-czg-gbph-old female presents to discuss the possibility of . She is several weeks late for her menstrual period, which is very unlike her. She does admit, however, this has been a very stressful time of her life, and she has been nervous about the . She missed multiple days ofher control last month, and that certainly unto itself could explain why her periods are unusual. In the end, she abandoned the last pack and was going to wait until she had a period before restarting the next pack. After all this worrying about possible , she plans on being extremely compliant with control pills in the future. She does have a negative home test but is not convinced, even though she has really not had any symptoms of breast tenderness, morning sickness, or the like. right now would be very traumatic, although she has already come to escrow secretary with the fact she could deal with it. Unfortunately, she and her boyfriend have broken up in the meantime. CURRENT MEDICATIONS Reviewed EMR dated 03/10/2013. ALLERGIES None. VITAL SIGNS TEMPERATURE: 37.2 Celsius. PULSE: 76. RESPIRATORY RATE: 14. BLOOD PRESSURE: 98/56. WEIGHT: 59 kg. PHYSICAL EXAMINATION Patient is well-developed, in no apparent distress. She has no back tenderness. No abdomen tenderness. No suprapubic or adnexal discomfort. IMPRESSION/REPORT/PLAN Delayed menses, likely related to improper use of control pills. PLAN: For her reassurance, we did obtain a negative blood quantitative test today, and otherwise she will wait for her period. If she does not have one in the next month, we would probably induce a period with progesterone components, but I doubt that will be required. Otherwise follow up asneeded, and we did talk about alternative forms of control. She still thinks the pill is the best for her, as she has new found commitment to being compliant. Jonatan Hernandez M.D./elisabeth Electronically Signed By: JONATAN HERNANDEZ MD On: 03/15/2013 11:58 PM Source: [facility] MHSDOLBEYNONRADSYS Document Id: [id number] documented in this encounter Miscellaneous Notes Miscellaneous - Jonatan Hernandez M.D. - 03/10/2013 8:58 PM CDT Ambulatory Patient Summary [address] [address] Visit Information Name: VALERI DILLARD [facility] Number: [id number] Current Date: 03/10/2013 20:58:40 Physicians Attending Provider: JONATAN HERNANDEZ MD Primary Care Provider: JONATAN HERNANDEZ MD Your Medications Here is a list of your medications. It is important to take your medications as directed. Use a pillbox or chart to help remind you to take your medications. Please let your doctor or nurse know if you have problems taking your medications. Medication/Strength Dose Route Frequency Indications/Special Instructions/Comments/Notes fluoxetine (Prozac 20 mg oral capsule) 20 mg Oral once a day omeprazole (Prilosec 20 mg oral delayed release capsule) 20 mg Oral once a day fluticasone nasal (Flonase 50 mcg/inh nasal spray) 2 spray(s) Nostrils(Both) once a day ondansetron (Zofran 4 mg oral tablet) 4 mg Oral every 8 hours as needed for Nausea *norgestimate-ethinyl estradiol (Sprintec 0.25 mg-35 mcg oral tablet) 1 tab(s) Oral once a day naproxen (Aleve) Oral as needed * You have let us know that you are not taking this medication as listed. Please talk with your primary care provider or the health care provider who prescribed the medication as soon as possible. Attention: If you have any medications at [...] No Appointments found Your Goals/Additional instructions: Source: [facility] POWERElepath Document Id: [id number] Miscellaneous - Jonatan Hernandez M.D. - 03/10/2013 8:58 PM CDT Ambulatory Depart Summary [address] [address] Visit Information Name: CHRISTOPHE VALERIMigue STAFFORD [facility] Number: [id number] Visit Date: 03/10/2013 20:58:40 Attending Provider: JONATAN HERNANDEZ MD Primary Care Provider: JONATAN HERNANDEZ MD CHRISTOPHEVALERIANN has been given the following list of medications: Your Medications It is important to take your medications as directed. Use a pill box or chart to help remind you to take your medications. Please let your doctor or nurse know if you have problems taking your medications. Medication/Strength Dose Route Frequency Indications/Special Instructions/Comments/Notes fluoxetine (Prozac 20 mg oral capsule) 20 mg Oral once a day omeprazole (Prilosec 20 mg oral delayed release capsule) 20 mg Oral once a day fluticasone nasal (Flonase 50 mcg/inh nasal spray) 2 spray(s) Nostrils(Both) once a day ondansetron (Zofran 4 mg oral tablet) 4 mg Oral every 8 hours as needed for Nausea *norgestimate-ethinyl estradiol (Sprintec 0.25 mg-35 mcg oral tablet) 1 tab(s) Oral once a day naproxen (Aleve) Oral as needed * You have let us know that you are not taking this medication as listed. Please talk with your primary care provider or the health care provider who prescribed the medication as soon as possible. Attention: If you have any medications at home that are not on this list, DO NOT take them until youcontact your provider for clarification. Additional Information: [facility] Document Id: [id number] Miscellaneous - Dee Macedo L.PRodrigueNRodrigue - 03/10/2013 9:21 AM CDT Adult Paint Pourer Intake/History Adult Paint Pourer Intake/History Entered On: 03/10/2013 9:23 CDT Performed On: 03/10/2013 9:21 CDT by DEE MACEDO Intake Chief Complaint : Personal Temperature Oral : 37.2 DegC(Converted to: 99.0 DegF) Peripheral Pulse Rate : 76 /min Respiratory Rate : 14 /min Systolic Blood Pressure : 98 mmHg Diastolic Blood Pressure : 56 mmHg NIBP Mean : 70 mmHg BP Location : Right upper extremity Blood Pressure Cuff Size : Regular Actual Weight : 59.3 kg(Converted to: 130 lb 12 oz) Weight Source : Standing scale Dosing Weight Clinic : 59.3 kg DEE MACEDO - 03/10/2013 9:21 CDT General Info Information Given By : Patient Preferred Communication Mode : Verbal Languages : Nicaraguan DEE MACEDO - 03/10/2013 9:21 CDT Subjective Pain Symptoms : No DEE MACEDO - 03/10/2013 9:21 CDT Dependent Habits Tobacco Use/Currently Using : No Exposure to Tobacco Smoke : Other: NEVER Smoking Status : Never smoker DEE MACEDO 03/10/2013 9:21 CDT Caffeine Use Grid Caffeine Use : Current Type : Chocolate, Coffee, Soft drinks Frequency : Daily Amount : pop 2 cans per day DEE MACEDO - 03/10/2013 9:21 CDT Recreational Drug Use Grid Drug Use : None DEE MACEDO 03/10/2013 9:21 CDT Source: [facility] Document Id: [id number] CDT!33 documented in this encounter Plan of Treatment Not on filedocumented as of this encounter Procedures Procedure Name Priority Date/Time Associated Diagnosis Comme nts EXTRA SST Routine 03/10/2013 9:49 AM Results f or this CDT procedure are i n the results section. BHCG (BETA-HUMAN Routine 03/10/2013 9:49 AM Resul ts for this CHORIONIC CDT procedure are i n GONADOTROPIN), the results ILEANA, S section. documented in this encounter Results EXTRA SST (03/10/2013 9:49 AM CDT) P athologist Signature HXExtra Tube Extra Tube POWERCHART Specimen (Source) Anatomical Collection Method Collection Time Re ceived Time Location / / Volume Laterality Blood 03/10/2013 9:49 AM CDT Jonatan Hernandez M.D. LAB HISTORICAL ORDERS Performing Organization Address City/[facility] Code Phon e Number POWERCHART bHCG (Beta-Human Chorionic Gonadotropin), Quantitative (03/10/2013 9:49 AM CDT) P athologist Signature Beta-HCG, 0.5 <=25.0 POWERCHART Quantitative, S MIUML Specimen (Source) Anatomical Collection Method Collection Time Re ceived Time Location / / Volume Laterality Blood 03/10/2013 9:49 AM CDT Jonatan Hernandez M.D. LAB BLOOD ADD-ON Performing Organization Address City/[facility] Code Phon e Number POWERCHART documented in this encounter Visit Diagnoses Not on filedocumented in this encounter
--- OUTSIDE RECORDS SUMMARY | 2022-05-23 11:09 | XMS_ITS | Encounter Summary ---
:1990 Author Organization [facility] Address [address] [place] [address] Care Team Providers Name Role Phone Alfonso Hill P.A.-C. Primary Care Provider Unavailable Reason for Visit Reason Comments Follow-up medication Encounter Details Date Type Department Care Team Description 08/06/2017 Office Visit Department of [facility] Barak Hill Major One Episode Moderate (HCC) (Primary Dx); Medicine, [place] [facility], in [place], [place] [address] [place] [address] Social History Tobacco Use Types [...] or relatives? How often do you attend gnosticism or Never 2018 latter-day services? 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 - 08/06/2017 10:15 AM CST SUBJECTIVE CHIEF COMPLAINT / REASON FOR VISIT Perry Dillard is a 27 y.o. female who presents for evaluation of Follow-up (medication ). HISTORY OF PRESENT ILLNESS I last saw her on 06/28/17. She has been doing very well since that time. She has now returned to school and her anxiety/ depression has been much better controlled. She now feels that she is ready to stop using marijuana. She has been using this at night for quite awhile. She has tried to stop this onher own, but notes that when she does, she will have vivid nightmares. These typically relate to badexperiences with an ex-boyfriend. She has not tried anything to decrease the nightmares in the past.No other concerns today. Current Outpatient Prescriptions: ??? LORazepam (ATIVAN) 1 mg tablet, Take 1 tablet (1 mg total) by mouth 2 (two) times a day as needed for anxiety., Disp: 30 tablet, Rfl: 0 ??? NAPROXEN SODIUM (ALEVE ORAL), Take by mouth as needed., Disp: , Rfl: ??? sertraline (for_ZOLOFT) 100 mg tablet, Take 1 tablet by mouth daily., Disp: , Rfl: No Known Allergies Patient Active Problem List Diagnosis ??? Depression Major One Episode Moderate (HCC) ??? Anxiety ??? Subdermal Implantable Contraceptive Insertion OBJECTIVE Vitals: 01/09/18 0955 BP: 122/80 Pulse: 64 PHYSICAL EXAM Constitutional: She appears well-developed and well-nourished. Cardiovascular: Normal rate, regular rhythm, normal heart sounds and intact distal pulses. Pulmonary/Chest: Effort normal and breath sounds normal. Psychiatric: She has a normal mood and affect. Her behavior is normal. Judgment and thought content normal. ASSESSMENT / PLAN #1 Depression Major One Episode Moderate (HCC) #2 Anxiety Recommend that we try Prazosin 1 mg at bedtime. Discussed that this has been beneficial in the past for individuals with nightmares caused by PTSD. She can increase to 2 or 3 mg if needed as well. Continue on sertraline 100 mg daily. Follow up here as needed. Patient expresses understanding and agreement with the above plan. 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 PCP - General 01/10/17 02/20/18 documented as of this encounter
--- OUTSIDE RECORDS SUMMARY | 2022-05-23 11:09 | XMS_ITS | Encounter Summary ---
:1990 Author Organization [facility] Address [address] [place] [address] Care Team Providers Name Role Phone Unavailable Primary Care Provider Unavailable Encounter Details Date Type Department Care Team Description 02/03/2013 Hospital Encounter HX [facility] Jason Hernandez M.D. [address] [place] [address] Social History Tobacco Use Types Packs/Day [...] or relatives? How often do you attend jain or Never 2018 church services? 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 documented as of this encounter Progress Notes Tanmay Hernandez M.D. - 02/03/2013 2:52 PM CDT [id number] CHIEF COMPLAINT/REASON FOR VISIT Cough. 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 It has been phlegmy, productive mostly of a clearish phlegm. She has had a low-grade fever and a bit of a runny nose but otherwise no headaches. No shortness of breath. No other signs or symptoms of concern. The patient is a nonsmoker. CURRENT MEDICATIONS Reviewed EMR dated 02/03/2013. ALLERGIES None. VITAL SIGNS TEMPERATURE: 37 Celsius. PULSE: 60. BLOOD PRESSURE: 118/58. WEIGHT: 58 kg. PHYSICAL EXAMINATION Patient is in no apparent distress. There was no coughing our evaluation. ENT: TMs translucent. Throat clear. NECK: Supple without adenopathy. LUNGS: Clear in all gutierrez. CARDIAC: Regular rate and rhythm without murmur. ABDOMEN: Soft, nontender. IMPRESSION/REPORT/PLAN Acute cough which could be of a bronchitis origin. Our plan was to provide Zithromax as a Z-Akil, butnot to be taken at this time. Instead, the prescription was provided because of upcoming travel plans to have available should symptoms change or progress and become associated with morbid fever, shortness of breath, or mucopurulent productive cough. For the time being, however, I think this will be self-limited and she prefers to use uuwq-vso-oaxmevi cough suppressants. The patient is reminded that she is due for annual exam before February as she plans to travel and probably will be moving out of the area round that time. Tanmay Hernandez M.D./ranjeet Electronically Signed By: TANMAY HERNANDEZ MD On: 02/07/2013 08:38 AM Source: [facility] MHSDOLBEYNONRADSYS Document Id: [id number] documented in this encounter Miscellaneous Notes Miscellaneous - Tanmay Hernandez M.D. - 02/04/2013 1:01 PM CDT Ambulatory Patient Summary [facility] [address] [place] [address] Visit Information Name: VALERI DILLARD [facility] Number: [id number] Current Date: 02/04/2013 13:01:09 Physicians Attending Provider: TANMAY HERNANDEZ MD Primary Care Provider: TANMAY HERNANDEZ MD Your Medications Here is a list of your medications. It is important to take your medications as directed. Use a pillbox or chart to help remind you to take your medications. Please let your doctor or nurse know if you have problems taking your medications. Medication/Strength Dose Route Frequency Indications/Special Instructions/Comments/Notes azithromycin (Zithromax Z-Akil 250 mg oral tablet) 2 tablets on day 1, then 1 tablet on days 2-5 Oralas directed for 5 Days fluoxetine (Prozac 20 mg oral capsule) 20 mg Oral once a day omeprazole (Prilosec 20 mg oral delayed release capsule) 20 mg Oral once a day fluticasone nasal (Flonase 50 mcg/inh nasal spray) 2 spray(s) Nostrils(Both) once a day *ondansetron (Zofran 4 mg oral tablet) 4 mg Oral every 8 hours as needed for Nausea *norgestimate-ethinyl estradiol (Sprintec 0.25 mg-35 mcg oral tablet) 1 tab(s) Oral once a day *naproxen (Aleve) Oral as needed * You have [...] No Appointments found Your Goals/Additional instructions: Source: [facility] POWERCHART Document Id: [id number] Miscellaneous - Tanmay Hernandez M.D. - 02/04/2013 1:01 PM CDT Ambulatory Depart Summary [facility] [address] [place] [id number] Visit Information Name: VALERI DILLARD [facility] Number: [id number] Visit Date: 02/04/2013 13:01:09 Attending Provider: TANMAY HERNANDEZ MD Primary Care Provider: TANMAY HERNANDEZ MD VALERI DILLARD has been given the following list of medications: Your Medications It is important to take your medications as directed. Use a pill box or chart to help remind you to take your medications. Please let your doctor or nurse know if you have problems taking your medications. Medication/Strength Dose Route Frequency Indications/Special Instructions/Comments/Notes azithromycin (Zithromax Z-Akil 250 mg oral tablet) 2 tablets on day 1, then 1 tablet on days 2-5 Oralas directed for 5 Days fluoxetine (Prozac 20 mg oral capsule) 20 mg Oral once a day omeprazole (Prilosec 20 mg oral delayed release capsule) 20 mg Oral once a day fluticasone nasal (Flonase 50 mcg/inh nasal spray) 2 spray(s) Nostrils(Both) once a day *ondansetron (Zofran 4 mg oral tablet) 4 mg Oral every 8 hours as needed for Nausea *norgestimate-ethinyl estradiol (Sprintec 0.25 mg-35 mcg oral tablet) 1 tab(s) Oral once a day *naproxen (Aleve) Oral as needed * You have [...] your provider for clarification. Additional Information: Source: [facility] [employer] Document Id: [id number] Miscellaneous - Jaylon Reeves R.N. - 02/03/2013 3:20 PM CDT Adult Channel Specialist Intake/History Adult Channel Specialist Intake/History Entered On: 02/03/2013 15:22 CDT Performed On: 02/03/2013 15:20 CDT by JAYLON REEVES Intake Chief Complaint : Cough for about 2 weeks, phlegmy. Nasal congestion. Temperature Oral : 37.0 DegC(Converted to: 98.6 DegF) Peripheral Pulse Rate : 60 /min Heart Rhythm : Regular Systolic Blood Pressure : 118 mmHg Diastolic Blood Pressure : 58 mmHg NIBP Mean : 78 mmHg BP Location : Right upper extremity Blood Pressure Cuff Size : Regular Actual Weight : 58.3 kg(Converted to: 128 lb 8 oz) Dosing Weight Clinic : 58.3 kg JAYLON REEVES - 02/03/2013 15:20 CDT General Info Information Given By : Patient Preferred Communication Mode : Verbal Languages : Kyrgyz JAYLON REEVES - 02/03/2013 15:20 CDT Subjective Pain Symptoms : No Respiratory Symptoms : Cough JAYLON REEVES - 02/03/2013 15:20 CDT Dependent Habits Tobacco Use/Currently Using : No Exposure to Tobacco Smoke : Other: NEVER Smoking Status : Never smoker JAYLON REEVES - 02/03/2013 15:20 CDT Caffeine Use Grid Caffeine Use : Current Type : Chocolate, Coffee, Soft drinks Frequency : Daily Amount : pop 2 cans per day JAYLON REEVES - 02/03/2013 15:20 CDT Recreational Drug Use Grid Drug Use : None JAYLON REEVES - 02/03/2013 15:20 CDT Source: [facility] [employer] Document Id: [id number] CDT!33 documented in this encounter Plan of Treatment Not on filedocumented as of this encounter Visit Diagnoses Not on filedocumented in this encounter
--- OUTSIDE RECORDS SUMMARY | 2022-05-23 11:09 | XMS_ITS | Encounter Summary ---
:1990 Author Organization [facility] Address [address] [place] [address] Care Team Providers Name Role Phone Alfonso Hill P.A.-C. Primary Care Provider Unavailable Reason for Visit Reason Comments Diarrhea seen on Saturday for vomiting and diarrhea, but was sent home and told to follow a bland food but has not gotten better -still not able to eat with out having diarrhea and will still have cramps Back Pain start in mid-back Pain range was 6-8 and travels down the buttocks Encounter Details Date Type Department Care Team Description 12/09/2017 Office Visit Urgent Care in Jaime Cheney, Elijah (Primary Dx); [place], [place] [facility] Pain Back Lumbar [address] [place] [phone] Social History Tobacco Use Types Packs/Day Years [...] do you attend voodoo or Never 2018 rastafari services? 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 - 12/09/2017 10:30 AM CDT SUBJECTIVE CHIEF COMPLAINT / REASON FOR VISIT Patient comes in today for Diarrhea (seen on Saturday for vomiting and diarrhea, but was sent home andtold to follow a bland food but has not gotten better - still not able to eat with out having diarrhea and will still have cramps ) and Back Pain (start in mid-back Pain range was 6-8 and travels down the buttocks ). HISTORY OF PRESENT ILLNESS Perry Dillard is a 27 y.o. female who presents for evaluation of Diarrhea (seen on Saturday for vomiting and diarrhea, but was sent home and told to follow a bland food but has not gotten better -still not able to eat with out having diarrhea and will still have cramps ) and Back Pain (start in mid-back Pain range was 6-8 and travels down the buttocks ). 1. Diarrhea/back pain. Patient is a pleasant 27-year-old female with past medical history significant for posttraumatic stress disorder, anxiety, and daily marijuana use for the last 8 years who comes in today with a 7 a day history of diarrhea. It all started on 12/02/2017 with copious amounts of loose stools. Patient had a least 8 loose stools that day along with vomiting. She describes stools as watery with occasional chunks. It is a yellowish brown color. No blood in the stools. She denies having any sick contacts with the exception of her fiancee who have 1 episode of loose stool. She thought it may have been food poisoning, but no one else who ate the questionable food has been ill. No recent travel or unusual food choices. Patient had the same pattern of vomiting and diarrhea for the next 3-4 days. The vomiting then stopped on 12/05/2017, but the patient was seen on 12/06/2017 for continued diarrhea. It appears that a joint decision was made to hold off on GI testing at that point time. She was given dietary restrictions. Since then she has had continued diarrhea at least 5 stools per day continue in the same fashion. She has only been drinking water. She has tried eating toast, crackers, and broth. Any time she eats anything, she will have significant cramping. She has developed overthe last 24 hours some pain in her low back that has radiated down to legs. No numbness, tingling, weakness. She has not had any specific injury or additional illness. She has not tried any medicationsfor this. Additionally, the patient reports that she is taking sertraline and should be taking prazosin, but has not because she is concerned about the medication. She was prescribed that to help with bad dreamsand to help with her sleep issues (that is the reason why she smokes marijuana nightly). REVIEW OF SYSTEMS Negative except for those noted in HPI. No Known Allergies Current Outpatient Prescriptions on File Prior to Visit Medication Sig Dispense Refill ??? LORazepam (ATIVAN) 1 mg tablet Take 1 tablet (1 mg total) by mouth 2 (two) times a day as neededfor anxiety. 30 tablet 0 ??? NAPROXEN SODIUM (ALEVE ORAL) Take by mouth as needed. ??? prazosin (for_MINIPRESS) 1 mg capsule Take 1 capsule (1 mg total) by mouth at bedtime. 30 capsule 1 ??? sertraline (for_ZOLOFT) 100 mg tablet Take 1 tablet by mouth daily. No current facility-administered medications on file prior to visit. No past medical history on file. Past Surgical History: Procedure Laterality Date ??? KNEE ARTHROSCOPY W/ MENISCECTOMY Social History Social History ??? Marital status: Single Spouse name: N/A ??? Number of children: N/A ??? Years of education: N/A Social History Main Topics ??? Smoking status: Never Smoker ??? Smokeless tobacco: Never Used ??? Alcohol use 1.2 oz/week 2 Standard drinks or equivalent per week ??? Drug use: Yes Types: Marijuana ??? Sexual activity: Yes Other Topics Concern ??? Not on file Social History Narrative ??? No narrative on file Family History Problem Relation Age of Onset ??? Ovarian cancer Grandmother ??? Breast cancer Aunt The following portions of the patient's history were reviewed and updated as appropriate: allergies,current medications, family history, medical history, social history, surgical history and problem list. OBJECTIVE Blood pressure 120/84, pulse 99, temperature 36.9 ??C, resp. rate 16, weight 63.9 kg, not currently . PHYSICAL EXAM Constitutional: She is oriented to person, place, and time. She appears well- developed and well-nourished. HENT: Head: Normocephalic and atraumatic. Right Ear: External ear normal. Left Ear: External ear normal. Mouth/Throat: Oropharynx is clear and moist. Eyes: Conjunctivae are normal. Pupils are equal, round, and reactive to light. Right eye exhibits nodischarge. Left eye exhibits no discharge. Neck: Neck supple. Cardiovascular: Normal rate, regular rhythm and normal heart sounds. Pulmonary/Chest: Effort normal and breath sounds normal. Abdominal: Soft. Bowel sounds are normal. She exhibits no distension and no mass. There is no rebound and no guarding. Patient has diffuse tenderness to medium/light palpation. It is throughout and in no specific area. Musculoskeletal: Normal range of motion. She exhibits no deformity. Lymphadenopathy: She has no cervical adenopathy. Neurological: She is alert and oriented to person, place, and time. Skin: Skin is warm and dry. Capillary refill takes 2 to 3 seconds. Psychiatric: Her behavior is normal. Vitals reviewed. ASSESSMENT / PLAN #1 Diarrhea I think it is likely the patient has a infectious cause for her current condition. I discussed with her we should go ahead with a GI pathogens panel as well as a complete metabolic panel to check on her renal function as well as electrolytes given her significant losses. She does not appear to be clinically dehydrated at this point time. Recommend good hand hygiene. 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 Push fluids, rest. If she has any acute severe worsening, she will need to be seen in the emergency department. I also discussed with the patient that though I do not think that her daily marijuana use is likely the causative factor for her current situation, I did warn against the possibility of GI issues in the form of cyclic vomiting syndrome with her daily use. Recommend that she work with her PCP to help get her weaned off of marijuana. - GI Pathogen Panel, PCR, Feces - Comprehensive Metabolic Panel #2 Pain Back Lumbar I think likely is secondary to the patient's current condition. However, I did go ahead with urinalysis to rule out kidney stones. - Urinalysis with Microscopic if Indicated PATIENT EDUCATION Ready to learn, no apparent learning barriers were identified; learning preferences include listening. Explained diagnosis and treatment plan; patient expressed understanding of the content. documented in this encounter Plan of Treatment Not on filedocumented as of this encounter Procedures Procedure Name Priority Date/Time Associated Comments Diagnosis GI PATHOGEN PANEL, STAT 12/09/2017 1:40 PM Diarrhea Res ults for this PCR, F CDT procedure are i n the results section. URINALYSIS WITH STAT 12/09/2017 11:31 Pain Back Lumbar Resu lts for this MICROSCOPIC IF AM CDT procedure are in INDICATED, U the results section. COMPREHENSIVE STAT 12/09/2017 11:30 Diarrhea Results fo r this METABOLIC PANEL, S/P AM CDT procedu re are in the results section. documented in this encounter Results (ABNORMAL) GI Pathogen Panel, PCR, Feces (12/09/2017 1:40 PM CDT) Component Value Ref Range Test Analysis Performed Pathologis t Method Time At Signature Specimen Source STOOL 12/10/2017 [facility] 3:34 AM CDT [facility] Campylobacter Negative Negative 12/10/2017 [facility] species 3:34 AM CDT [facility] C. difficile toxin Negative Negative 12/10/2017 [facility] 3:34 AM CDT [facility] Plesiomonas Negative Negative 12/10/2017 [facility] shigelloides 3:34 AM CDT [facility] Salmonella species Negative Negative 12/10/2017 [facility] 3:34 AM CDT [facility] Vibrio species Negative Negative 12/10/2017 [facility] 3:34 AM CDT [facility] Vibrio cholerae Negative Negative 12/10/2017 [facility] 3:34 AM CDT [facility] Yersinia species Negative Negative 12/10/2017 [facility] 3:34 AM CDT [facility] Enteroaggregative E. Negative Negative 12/10/2017 [facility] coli (EAEC) 3:34 AM CDT [facility] Enteropathogenic E. Negative Negative 12/10/2017 [facility] coli (EPEC) 3:34 AM CDT [facility] Enterotoxigenic E. Negative Negative 12/10/2017 [facility] coli (ETEC) 3:34 AM CDT [facility] Shiga toxin Negative Negative 12/10/2017 [facility] producing E. coli 3:34 AM CDT [facility] Shigella/Enteroinvas Negative Negative 12/10/2017 [facility] nya E. coli 3:34 AM CDT [facility] Cryptosporidium Negative Negative 12/10/2017 [facility] species 3:34 AM CDT [facility] Cyclospora Negative Negative 12/10/2017 [facility] cayetanensis 3:34 AM CDT [facility] Entamoeba Negative Negative 12/10/2017 [facility] histolytica 3:34 AM CDT [facility] Giardia Negative Negative 12/10/2017 [facility] 3:34 AM CDT [facility] Adenovirus F40/41 Positive Negative 12/10/2017 [facility] (A) 3:34 AM CDT [facility] Comment: Patient Requires Contact Precautions if hospitalized and diapered or fecally incontinent. Astrovirus Negative Negative 12/10/2017 3:34 AM CDT [facility] Norovirus GI/GII Negative Negative 12/10/2017 3:34 AM CDT [facility] Rotavirus Ag, F Negative Negative 12/10/2017 3:34 AM CDT [facility] Sapovirus Negative Negative 12/10/2017 3:34 AM CDT [facility] Comment: ----ADDITIONAL INFORMATION---- This assay is performed using the FDA-cl eared FilmArray GI Panel ([employer] Semi-Urgent This is a semi-urgent result (SANDHU) [facility] Specimen Anatomical Collection Method Collection Time Receive d Time (Source) Location / / Volume Laterality Stool (Stool) 12/09/2017 1:40 PM 12/10/19 18 CDT 11:52 PM CDT Jaime Cheney M.D. LAB MICROBIOLOGY - GENERAL O RDERABLES Performing Organization Address City/State/ZIP Code Phon e Number [facility] [address] [place] [address] LAB (ABNORMAL) Urinalysis with Microscopic if Indicated (12/09/2017 11:31 AM CDT) P athologist Signature Source Midstream 12/09/2017 [facility] 11:47 AM CDT [facility] [employer] [facility] Clarity Clear Clear 12/09/2017 [facility] 11:47 AM T [facility] Color Shira 12/09/2017 [facility] 11:47 AM T [facility] [employer] LAB Comment: ----REFERENCE VALUE---- Colorless Yellow Shira Blood Negative Negative 12/09/2017 11:47 AM CDT [facility] Nitrite Negative Negative 12/09/2017 11:47 AM CDT [facility] Leukocyte Esterase Negative Negative 12/09/2017 11:47 AM [facility]T [facility] Protein Trace mg/dL 12/09/2017 11:47 AM CDT [facility] Comment: ----REFERENCE VALUE---- Negative Trace Glucose Negative Negative mg/dL 12/09/2017 11:47 AM [facility] Ketone 80 (A) Negative mg/dL 12/09/2017 11:47 AM [facility] Bilirubin Negative Negative 12/09/2017 11:[address] [facility] pH 6.0 5.0 - 8.0 12/09/2017 11:47 AM [facility] Specific [place] 1.024 1.001 - 1.035 12/09/2017 11:47 AM [facility] Urobilinogen 1.0 0.2 - 1.0 12/09/2017 11:47 AM [facility] Specimen Anatomical Collection Method Collection Time Receive d Time (Source) Location / / Volume Laterality Urine (Urine, 12/09/2017 11:31 12/09/2017 Clean Catch) AM CDT 11:36 AM CDT Jaime Cheney M.D. LAB URINE ORDERABLES Performing Organization Address City/State/ZIP Code Phon e Number [facility] [address] [address] LAB (ABNORMAL) Comprehensive Metabolic Panel (12/09/2017 11:30 AM CDT) P athologist Signature Potassium, P 3.4 (L) 3.6 - 5.2 12/09/2017 [facility] mmol/L 11:57 AM [facility] Sodium, P 142 135 - 145 12/09/2017 [facility] mmol/L 11:57 AM [facility] Chloride, P 103 98 - 107 12/09/2017 [facility] mmol/L 11:57 AM [facility] Bicarbonate, P 25 22 - 29 12/09/2017 [facility] mmol/L 11:57 AM [facility] Anion Gap, P 14 7 - 15 12/09/2017 [facility] 11:57 AM [facility] BUN (Blood Urea 6 6 - 21 12/09/2017 [facility] Nitrogen), P mg/dL 11:57 AM [facility] Creatinine 0.69 0.59 - 12/09/2017 [facility] 1.04 mg/dL 11:57 AM [facility] eGFR-Black/Afri >90 >=60 12/09/2017 [facility] can Syrian mL/min/BSA 11:57 AM [facility] Comment: ----ADDITIONAL INFORMATION---- Estimated GFR calculated using the 2009 CKD_EPI creatinine equation. eGFR Non-Black/ >90 >=60 mL/min/BSA 12/09/2017 11:57 AM [facility] Comment: ----ADDITIONAL INFORMATION---- Estimated GFR calculated using the 2009 CKD_EPI creatinine equation. Calcium, Total, P 8.9 8.6 - 10.0 12/09/2017 11:57 AM [facility]dL [facility] [place] [facility] Glucose, P 75 70 - 140 mg/dL 12/09/2017 11:57 AM [facility] Protein, Total, P 6.6 6.3 - 7.9 g/dL 12/09/2017 11:57 AM [facility] Albumin, P 4.2 3.5 - 5.0 g/dL 12/09/2017 11:57 AM [facility] Aspartate 52 (H) 8 - 43 U/L 12/09/2017 11:57 AM [facility] Aminotransferase (AST), P [facility] [place] Alkaline Phosphatase, P 53 37 - 98 U/L 12/09/2017 11: 57 AM [facility] Alanine Aminotransferase 59 (H) 7 - 45 U/L 12/09/2017 11: 57 AM [facility] (ALT), [facility] [place] [facility] Bilirubin, Total, P 0.6 <=1.2 mg/dL 12/09/2017 11:57 A [facility] [place] [facility] Specimen Anatomical Collection Method Collection Time Receive d Time (Source) Location / / Volume Laterality Blood (Blood, 12/09/2017 11:30 12/09/2017 Venous) AM CDT 11:36 AM CDT Jaime Cheney M.D. LAB BLOOD ADD-ON Performing Organization Address City/State/ZIP Code Phon e Number [facility] [address] [place] [address] LAB documented in this encounter Visit Diagnoses Diagnosis Diarrhea - Primary Pain Back Lumbar documented in this encounter Additional Health Concerns Assessment Noted Time PHQ-9 Depression Total Score: 10 05/07/2017 1:51 PM CD T documented as of this encounter Care Teams Edge Glue Machine Tender Relationship Specialty Start Date End Date Alfonso Hill P.A.-C. PCP - General 01/10/17 02/20/18 documented as of this encounter
--- OUTSIDE RECORDS SUMMARY | 2022-05-23 11:09 | XMS_ITS | Encounter Summary ---
:1990 Author Organization [facility] Address [address] [place] [id number] Care Team Providers Name Role Phone Alfonso Hill P.A.-C. Primary Care Provider Unavailable Encounter Details Date Type Department Care Team Description 05/07/2017 Hospital Encounter [facility]X [facility] Abelardo Hill P.A.-C. Social History Tobacco Use Types Packs/Day Years [...] or relatives? How often do you attend denominational or Never 2018 congregational services? 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 documented as of this encounter Last Filed Vital Signs Vital Sign Reading Time Taken Comments Blood Pressure 120/70 05/07/2017 10:30 AM CDT Pulse 64 05/07/2017 10:30 AM CDT Temperature - - Respiratory Rate - - Oxygen Saturation - - Inhaled Oxygen Concentration - - Weight 67.5 kg (148 lb 13 oz) 05/07/2017 10:30 AM CDT Height 167 cm (5' 5.75) 05/07/2017 10:30 AM CDT Body Mass Index 24.2 05/07/2017 10:30 AM CDT documented in this encounter Medications at Time of Discharge Medication Sig Dispensed Refills Start Date End Date LORazepam (ATIVAN) 1 mg Take 1 tablet by 0 201408/06/2017 tablet mouth 2 (two) times a day as needed. NAPROXEN SODIUM (ALEVE Take by mouth as 0 011 05/06/2019 ORAL) needed. sertraline (for_ZOLOFT) Take 1 tablet by 0 201606/20/2018 100 mg tablet mouth daily. documented as of this encounter Progress Notes Alfonso Hill P.A.-C. - 05/07/2017 12:30 PM CDT FM-LE CHIEF COMPLAINT/REASON FOR VISIT follow up, depression and anxiety HISTORY OF PRESENT ILLNESS Perry is a 27-year-old female who presents to clinic for follow up of depression and anxiety. I lastsaw her on 04/25/17. At that time, she was struggling with increased suicidal ideations. This has significantly improved since then. Her depression and anxiety can be worse on some days than others, butoverall she has made small improvements. She did restart the Sertraline about 2 weeks ago. She has not noticed a big difference with that yet. She does think the medication may be making her more tired, but she has been taking this in the afternoon. She has been seeing her therapist, Debbi Torres, which she is also happy with. She does admit to nightly marijuana use to help her sleep, but will not use this at other times of the day. No other concerns today. MEDICATIONS Aleve, PO, PRN Ativan 1 mg oral tablet, 1 mg, 1 tab(s), target Roch, PO, 2xDay, PRN, 5 refills sertraline 100 mg oral tablet, 100 mg, 1 tab(s), Take 1/2 tab (50 mg) daily. After 2 weeks, can increase to 100 mg daily., PO, Daily, 3 refills ALLERGIES NKA PAST MEDICAL HISTORY Chronic Anxiety disorder NOS Depression Major One Episode Moderate Rhinitis, Allergic Subdermal Implantable Contraceptive Insertion SOCIAL HISTORY Date Time: 05/07/2017 10:30 Tobacco: Smoking Status: Never smoker Exposure: Other: NEVER Alcohol: Use: No Results Found Recreational Drugs: Use: None Type: No Results Found VITAL SIGNS HR: 64 BP: 120 / 70 HT: 167 cm WT: 67.5 kg BMI: 24.2 PHYSICAL EXAMINATION GENERAL: Alert female in no acute distress. PSYCH: Very pleasant and cooperative. Good eye contact throughout. PHQ-9 score of 10 (improved from20). DEB-7 score of 9 (improved from 16). IMPRESSION/REPORT/PLAN 1. Depression Major One Episode Moderate 2. Anxiety disorder NOS Encouraged her to continue to take the Sertraline as we would expect to see more benefit after she has been on it continuously for at least 4-6 weeks. She should also plan to keep regular follow up with her therapist. Recommend that she keep her loved ones in the loop with how she is feeling to make sure she is safe at home if symptoms do flare again. Discussed that the marijuana use may worsen her depression symptoms. I would like to have Perry send weekly updates via patient portal. We will leave our next in person visit open ended, but she understands that she should follow up as she has done inthe past for any worsening symptoms, suicidal ideation or plans. Patient expresses understanding and agreement with the above plan. Alfonso Hill PA-C Electronically Signed By: ALFONSO HILL On: 05/14/2017 08:24 AM [facility] Document Id: [id number] documented in this encounter Miscellaneous Notes Miscellaneous - Adelina Alex, L.P.N. - 05/07/2017 1:51 PM CDT DEB-7 DEB-7 Entered On: 05/07/2017 13:52 CDT Performed On: 05/07/2017 13:51 CDT by ADELINA ALEX LPN GAD7 GAD7 Feeling nervous : More than half the days GAD7 Not able to control worry : Several days GAD7 Worrying too much : More than half the days GAD7 Trouble relaxing : More than half the days GAD7 Being so restless : Not at all GAD7 Becoming easily annoyed : Not at all GAD7 Feeling afraid : More than half the days GAD7 Total Score : 9 Problems make work, home, or dealing with others : Somewhat difficult ADELINA ALEX LPN - 05/07/2017 13:51 CDT Source: [employer] Document Id: [id number] CDT!11 Daina - Adelina Alex L.P.N. - 05/07/2017 1:51 PM CDT PHQ-9 PHQ-9 Entered On: 05/07/2017 13:52 CDT Performed On: 05/07/2017 13:51 CDT by ADELINA ALEX LPN PHQ-9 Little interest or pleasure in doing things : Several days Feeling down, depressed, or hopeless : Several days Trouble falling or staying asleep, or sleeping too much : More than half the days Feeling tired or having little energy : More than half the days Poor appetite or overeating : Several days Feeling bad about yourself or that you are a failure : More than half the days Trouble concentrating on things : Several days Moving or speaking slowly; restless or fidgety : Not at all Thoughts that you would be better off /hurting self : Not at all PHQ-9 Calculated Score : 10 ADELINA ALEX LPN - 05/07/2017 13:51 CDT Source: [employer] Document Id: [id number] CDT!12 Daina - Adelina Alex L.P.N. - 05/07/2017 10:30 AM CDT Adult Hand Edge Bander Intake/History Adult Hand Edge Bander Intake/History Entered On: 05/07/2017 10:32 CDT Performed On: 05/07/2017 10:30 CDT by ADELINA ALEX LPN Intake Chief Complaint : follow up, depression and anxiety Peripheral Pulse Rate : 64 /min Systolic Blood Pressure : 120 mmHg Diastolic Blood Pressure : 70 mmHg NIBP Mean : 87 mmHg BP Location : Right upper extremity Blood Pressure Cuff Size : Regular Height : 167 cm(Converted to: 5 ft 6 inch(es), 66 inch(es)) Actual Weight : 67.5 kg(Converted to: 148 lb 13 oz) Dosing Weight Clinic : 67.5 kg Clinic BSA : 1.77 Body Mass Index : 24.2 kg/m2 ADELINA ALEX LPN - 05/07/2017 10:30 CDT General Info Languages : German Is Patient Female and 13-50 no hysterectomy : Yes Status : Patient denies Are you ? : No ADELINA ALEX LPN - 05/07/2017 10:30 CDT Subjective Pain Symptoms : No ADELINA ALEX LPN - 05/07/2017 10:30 CDT Dependent Habits Exposure to Tobacco Smoke : Other: NEVER Smoking Status : Never smoker Tobacco 2A : No Tobacco Use/Currently Using : No Tobacco Use/Last 30 Days : No Tobacco Use/Last 12 months : No ADELINA ALEX LPN - 05/07/2017 10:30 CDT Caffeine Use Grid Caffeine Use : Current Type : Chocolate, Coffee, Soft drinks Frequency : Daily Amount : pop 2 cans per day ADELINA ALEX LENS POLISHER - 05/07/2017 10:30 CDT Recreational Drug Use Grid Drug Use : None ADELINA ALEX LPN - 05/07/2017 10:30 CDT Source: [facility] [employer] Document Id: [id number] CDT!37 documented in this encounter Plan of Treatment Not on filedocumented as of this encounter Visit Diagnoses Not on filedocumented in this encounter Additional Health Concerns Assessment Noted Time PHQ-9 Depression Total Score: 05/07/2017 1:51 PM CD T documented as of this encounter Care Teams Registered Phlebotomist Part Time Relationship Specialty Start Date End Date Alfonso Hill P.A.-C. PCP - General 01/10/17 02/20/18 documented as of this encounter
--- OUTSIDE RECORDS SUMMARY | 2022-05-23 11:09 | XMS_ITS | Encounter Summary ---
:1990 Author Organization [facility] Address [address] [place] [id number] Care Team Providers Name Role Phone Unavailable Primary Care Provider Unavailable Encounter Details Date Type Department Care Team Description 07/13/2013 Hospital Encounter [facility]X [facility] Jason Hernandez M.D. [address] [place] [address] Social History Tobacco Use Types Packs/Day [...] or relatives? How often do you attend tenriism or Never 2018 yarsanism services? 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 documented as of this encounter Last Filed Vital Signs Vital Sign Reading Time Taken Comments Blood Pressure 116/58 07/13/2013 5:16 PM AUTOMATIC BEADING LATHE OPERATOR Pulse 108 07/13/2013 5:16 PM AUTOMATIC BEADING LATHE OPERATOR Temperature - - Respiratory Rate - - Oxygen Saturation - - Inhaled Oxygen Concentration - - Weight 56.3 kg (124 lb 1.9 oz) 07/13/2013 5:16 PM AUTOMATIC BEADING LATHE OPERATOR Height - - Body Mass Index 20.68 12/30/2012 11:36 AM CDT documented in this encounter Medications at Time of Discharge Medication Sig Dispensed Refills Start Date End Date NAPROXEN SODIUM (ALEVE Take by mouth as 0 011 05/06/2019 ORAL) needed. documented as of this encounter Progress Notes Tanmay Hernandez M.D. - 07/13/2013 5:07 PM CST [id number] CHIEF COMPLAINT/REASON FOR VISIT Pneumonia. HISTORY OF PRESENT ILLNESS A 23-year-old female diagnosed with a viral process and evaluation a week ago. Had complete resolution of symptoms only to come back in the last 24 to 48 hours with a yellow productive cough, some heaviness when try to take a full breath, general malaise and fatigue. At this time she does not have thebody aches or other symptoms that went with last week's viral syndrome. MEDICATIONS Reviewed EMR dated 07/13/2013. ALLERGIES None. VITAL SIGNS TEMPERATURE: 36.8 Celsius. PULSE: 108. BLOOD PRESSURE: 116/58. WEIGHT: 56 kg. PHYSICAL EXAMINATION Patient is looking fatigued but no respiratory distress. ENT: TMs translucent. Throat clear. NECK: Supple without adenopathy. LUNGS: Patient had some left posterior inferior rales. Lacking insurance she did not want to have a chest x-ray and it probably would not change our management so we did cover her with a course of Zithromax as a Z- Akil and recommend getting as much rest as possible. She will contact me if not improved in the next 24 to 48 hours or sooner to the emergency room for any respiratory distress. Tanmay Hernandez M.D./stefan Electronically Signed By: TANMAY HERNANDEZ MD On: 07/15/2013 05:41 PM Source: [facility] MHSDOLBEYNONRADSYS Document Id: [id number] MATIC BEADING LATHE OPERATOR documented in this encounter Miscellaneous Notes Miscellaneous - Jaylon Reeves R.N. - 07/13/2013 5:16 PM CST Adult Freight Rate Specialist Intake/History Adult Freight Rate Specialist Intake/History Entered On: 07/13/2013 17:19 AUTOMATIC BEADING LATHE OPERATOR Performed On: 07/13/2013 17:16 AUTOMATIC BEADING LATHE OPERATOR by JAYLON REEVES Intake Chief Complaint : Possible pneumonia, was seen last Saturday with possible flu, not better. Temperature Oral : 36.8 DegC(Converted to: 98.2 DegF) Peripheral Pulse Rate : 108 /min (HI) Heart Rhythm : Regular Systolic Blood Pressure : 116 mmHg Diastolic Blood Pressure : 58 mmHg NIBP Mean : 77 mmHg BP Location : Right upper extremity Blood Pressure Cuff Size : Regular Actual Weight : 56.3 kg(Converted to: 124 lb 2 oz) Dosing Weight Clinic : 56.3 kg JAYLON REEVES - 07/13/2013 17:16 AUTOMATIC BEADING LATHE OPERATOR General Info Information Given By : Patient Preferred Communication Mode : Verbal Languages : Kyrgyz JAYLON REEVES - 07/13/2013 17:16 AUTOMATIC BEADING LATHE OPERATOR Subjective Pain Symptoms : No Respiratory Symptoms : Cough JAYLON REEVES - 07/13/2013 17:16 AUTOMATIC BEADING LATHE OPERATOR Dependent Habits Tobacco Use/Currently Using : No Exposure to Tobacco Smoke : Other: NEVER Smoking Status : Never smoker JAYLON REEVES - 07/13/2013 17:16 AUTOMATIC BEADING LATHE OPERATOR Caffeine Use Grid Caffeine Use : Current Type : Chocolate, Coffee, Soft drinks Frequency : Daily Amount : pop 2 cans per day JAYLON REEVES - 07/13/2013 17:16 AUTOMATIC BEADING LATHE OPERATOR Recreational Drug Use Grid Drug Use : None JAYLON REEVES - 07/13/2013 17:16 AUTOMATIC BEADING LATHE OPERATOR Source: [facility] 51 [employer] Document Id: [id number] AUTOMATIC BEADING LATHE OPERATOR!33 MATIC BEADING LATHE OPERATOR documented in this encounter Plan of Treatment Not on filedocumented as of this encounter Visit Diagnoses Not on filedocumented in this encounter
--- OUTSIDE RECORDS SUMMARY | 2022-05-23 11:09 | XMS_ITS | Encounter Summary ---
:1990 Author Organization [facility] Address [address] [place] [id number] Care Team Providers Name Role Phone Unavailable Primary Care Provider Unavailable Encounter Details Date Type Department Care Team Description 06/13/2016 Hospital Encounter HX [facility] Abelardo Khan P.A.-C. Social History Tobacco Use Types Packs/Day [...] or relatives? How often do you attend amish or Never 2018 adventist services? Do you belong to any clubs or Yes 05/02/2019 organizations such as amish groups, unions, fraternal or athletic groups, or [...] at Date Recorded Female 08/04/2017 12:14 PM RN REHAB documented as of this encounter Last Filed Vital Signs Vital Sign Reading Time Taken Comments Blood Pressure 102/66 06/13/2016 10:40 AM RN REHAB Pulse 62 06/13/2016 10:40 AM RN REHAB Temperature - - Respiratory Rate 14 06/13/2016 10:40 AM RN REHAB Oxygen Saturation - - Inhaled Oxygen Concentration - - Weight 62 kg (136 lb 11 oz) 06/13/2016 10:40 AM RN REHAB Height 166.8 cm (5' 5.67) 06/13/2016 10:40 AM RN REHAB Body Mass Index 22.28 06/13/2016 10:40 AM RN REHAB documented in this encounter Medications at Time of Discharge Medication Sig Dispensed Refills Start Date End Date LORazepam (ATIVAN) 1 mg Take 1 tablet by 0 201408/06/2017 tablet mouth 2 (two) times a day as needed. NAPROXEN SODIUM (ALEVE Take by mouth as 0 011 05/06/2019 ORAL) needed. documented as of this encounter H&P Notes Alfonso Khan P.A.-C. - 06/13/2016 11:47 AM CST FM-ME CHIEF COMPLAINT/REASON FOR VISIT Physical, depression/ anxiety, contraception HISTORY OF PRESENT ILLNESS Valeri is a 26-year-old female who presents to clinic for a complete physical exam. She has a few additional concerns today. She was previously seen here by Dr. Hernandez, who is no longer with the clinic. 1) Depression, anxiety, PTSD: Patient has a long-standing history of depression and anxiety. She had stopped taking the Zoloft on her own a few months ago as she did not feel that it was beneficial for her. She was previously in a bad relationship, and relates a lot of her anxiety and possible PTSD symptoms to this relationship. She has been occasionally using the Ativan as needed. She would like todiscuss other medication options today. She has previously tried Prozac, Celexa, Effexor, and Zoloft. She did not feel that any of these provided significant relief of symptoms. 2) Contraception: Patient is currently using combined oral contraceptive, Sprintec, but thinks thatshe wants to change this to a longer-acting contraception option. She struggles with remembering to take the pill everyday. Patient has tried Depo Provera injections in the past, but recalls that she had a lot of irregular bleeding for almost the entire three months. She does not desire . Hernext menstrual cycle is due within a few days. She has no concerns for STDs today, but would like aneudy checked. MEDICATIONS Aleve, PO, PRN Ativan 1 mg oral tablet, 1 mg, 1 tab(s), target Roch, PO, 2xDay, PRN, 5 refills Flonase 50 mcg/inh nasal spray, 2 spray(s), Nostrils(Both), Daily, 8 refills Sprintec 0.25 mg-35 mcg oral tablet, 1 tab(s), PO, Daily, 4 refills Zoloft 50 mg oral tablet, 50 mg, 1 tab(s), PO, Daily, 3 refills, * * indicates non-compliance ALLERGIES NKA PAST MEDICAL HISTORY Chronic Anxiety disorder NOS Depression Major One Episode Moderate Rhinitis, Allergic PROCEDURES/SURGICAL HISTORY Left knee meniscectomy SOCIAL HISTORY Date Time: 06/13/2016 10:40 Tobacco: Smoking Status: Never smoker Exposure: Other: NEVER Alcohol: Use: No Recreational Drugs: Use: None Type: No Results Found Lives in [place] with boyfriend. Stable relationship. Denies tobacco use. Alcohol: 1 drink/ night. Occasional marijuana use. FAMILY HISTORY No qualifying data available. Grandmother: ovarian cancer Aunt: breast cancer (diagnosed late 40s) Mother: double mastectomy due to concerns for breast cancer Family history on both sides of depression and alcoholism. HEALTH MAINTENANCE Pap smear: today, no history of abnormal pap smears. Fasting glucose: today Fasting lipids: today Tdap: 12/31/12 No indication for early breast cancer or colon cancer screening. SYSTEMS REVIEW GENERAL: No recent fever, no weight loss, no extreme fatigue. HEENT: No double vision, no sudden loss of vision, no sore throat, no runny nose, no ear pain, no hearing loss. PULMONARY: No shortness of breath, no cough, no wheezing, no excessive snoring CARDIAC: No chest pain, no pain in legs relieved with rest, no irregular heartbeats. BREASTS: No nipple discharge, no breast lumps, no breast tenderness, no other changes GI: no heartburn, no nausea, no vomiting, no stomach trouble, no constipation, no diarrhea, no blood in BMs, no change in BMs REPRODUCTIVE: Menstrual cycle due in next 1-2 days. No menstrual abnormalities, no abnormal vaginalbleeding : No burning/pain with urination, no excessive urination, no vaginal discharge MUSCULOSKELETAL: No joint pain, no muscle weakness, no back pain. SKIN: No skin rashes, no skin sores, no change in moles NEURO: No headaches, no persistent weakness and numbness on one side of body, no falling. ENDOCRINE: No excessive thirst or urination, no cold or heat intolerance, no breast mass, no swelling in legs and feet. VITAL SIGNS HR: 62 RR: 14 BP: 102 / 66 HT: 166.8 cm WT: 62.0 kg BMI: 22.28 PHYSICAL EXAMINATION GENERAL: Well-appearing female in no acute distress. SKIN: No rashes, abnormal lesions, jaundice or bruising noted. HEAD: Normocephalic, atraumatic. EYES: White sclera with clear conjunctiva. Pupils equal round and reactive to light. Normal extraocular movements. On funduscopic exam, optic disc visualized with sharp margins. Normal appearing vessels with no exudates or hemorrhages noted. EARS: Hearing grossly normal. External auditory canal clear without erythema or debris. Normal tympanic membranes bilaterally with good visualization of bony landmarks and normal cone of light. No bulging or erythema. NOSE: Normal appearing nasal septum and turbinates. No nasal discharge. MOUTH/ THROAT: Moist mucous membranes. Posterior oropharynx appears pink without exudates or inflammation. NECK: Supple, without lymphadenopathy. Normal thyroid. BREASTS: Breasts appear symmetric with no skin or nipple changes. No masses or tenderness on palpation. No axillary lymphadenopathy. LUNGS: Normal effort on room air. Clear to auscultation bilaterally. CARDIOVASCULAR: Regular rate and rhythm with no murmurs, rubs, or gallops. ABDOMEN: Soft, non-distended, non-tender. Normoactive bowel sounds. No hepatosplenomegaly noted. GENITOURINARY: External genitalia normal without lesions or rashes. Cervix visualized with no inflammation, discharge, or bleeding. Pap smear and chlamydia/ gonorrhea swab obtained. On bimanual exam, no adnexal tenderness or masses. MUSCULOSKELETAL: Normal gait. Equal strength bilaterally in upper and lower extremities. EXTREMITIES: 2+ radial and posterior tibial pulses bilaterally. No peripheral edema. NEUROLOGIC: CN 2-12 grossly intact. 2+ biceps and patellar reflexes bilaterally. Soft touch sensation intact in hands and feet. PSYCH: Very pleasant female. Slightly anxious through different aspects of the exam. PHQ-9 score of16 today. DEB-7 score of 9. LAB RESULTS Fasting glucose: 97 Total cholesterol 163, Triglycerides 45, HDL 87, LDL 67 IMPRESSION/REPORT/PLAN 1. Maintenance Health Adult (HM) Patient is doing well overall. Discussed age appropriate health topics including regular exercise, balanced diet, sunscreen, monitoring moles, safety. Health maintenance is up to date as shown to the right. Will inform her of her lab results once they return. Recommend annual visits while using contraception- complete physical exams every 2-3 years. 2. Depression Anxiety Discussed several options for treatment today. Discussed that she may not have seen benefits from the Zoloft prescription because her dose did not get high enough. Since she did not experience any adverse effects from this, we will plan to re-start the Zoloft at 50 mg daily, increasing to 100 mg after 1-2 weeks. Informed of possible adverse effects and expected timeframe for symptomatic improvement.Recommend continuing to work with her therapist. Discussed that the occasional marijuana use may actually be worsening her depression symptoms. She can continue using the Ativan sparingly, on an as needed basis. 3. Management Contraception Prescription Discussed the different long-acting contraception options available. Discussed that the number one cause for people wanting the Nexplanon removed is irregular menstrual bleeding. Since she did have this with the Depo Provera injection, discussed that it is quite possible that she may have it again with the Nexplanon. We did discuss that there are things that we could do to help improve the bleeding if needed. Patient does wish to try this. We will have her return to clinic next week for insertion. She will be starting her menstrual cycle in the next day or two so we will not need to perform a test. Discussed possible risks and benefits from this. Follow up: Nexplanon insertion next week. We will plan a phone call/ patient portal message follow up in 1 month. Patient should return to clinic sooner for worsening symptoms, suicidal ideation or plans. Patient expresses understanding and agreement with the above plan. Alfonso Khan PA-C Electronically Signed By: ALFONSO KHAN On: 06/17/2016 02:00 PM Source: [facility] POWERCHART Document Id: [id number] REHAB documented in this encounter Miscellaneous Notes Miscellaneous - Alfonso Khan P.A.-C. - 05/30/2017 12:44 PM CDT RE: Lab results From: ALFONSO KHAN To: VALERI SAEED Sent: 05/30/2017 12:44:08 CDT Subject: RE: Lab results Valeri, We will fax this for you now. Let me know if you need anything else. 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 Basically all that would need to be in the letter is that: 1) nya struggled with taking my meds 2) I have depression and anxiety and that I haven?t been mentally stable for months now 3) that I?ve been seeing you/communicating with you regularly You can add anything you feel comfortable telling them, but thank you so so so much! It can be faxed to [phone] or you can email it to [email or web address] From: ALFONSO KHAN To: VALERI SAEED Sent: 05/29/2017 11:23:55 CDT Subject: RE: Lab results Valeri, That is so great to hear! I am so glad for you. I am actually working in a different part of the clinic today so it is not quite as easy for me to reach out via phone call. I would be happy to write a letter for you. What college is it for? Is there anything in particular that you would like me to include in the letter? Otherwise, I will likely be pretty vague and just state that we have been workingthrough mental health concerns and now that you are in a good place, that I would be in complete agreement with you getting back into school to complete your degree. Once we get this, we can either mail it to you, hold it at the front end loader driver, or mail it to the school if you have an address. Please let me know what you would like us to do with this. Alfonso From: VALERI SAEED To: ALFNOSO KHAN Sent: 05/29/2017 11:17:19 AM ([facility]-06:00) Central Time ([place] & [place]) Subject: RE: Lab results Heanisha Mcdonnella! Just wanted to update you- I feel like a completely different person. I'm waking up happy every morning, I'm motivated to do more with my day, I'm not sleeping nearly as much as I used to. And I feel GREAT. 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 The application is asking me for a letter from my health provider stating that I was not in a healthy state of mind when I was suspended. If you could call me or you'd like me to make an appointment so we can talk, that would be great. I talked to Debbi already and she said that she'dbe more than happy to help but that your word would probably go farther with the financial analyst accountant commit rodger than hers because you have the medical degree. Please get back me whenever you have a sec! Thanks! Valeri From: ALFONSO KHAN To: VALERI SAEED Sent: 04/28/2017 19:58:13 CDT Subject: RE: Lab results Thank you for the update! That's the best way to do it- day by day. Just keep being honest with yourself and all of those closest to you. I remember you saying that you have an appointment with Debbi on Saturday-- maybe update me at the end of the week again before the weekend? Alfonso From: VALERI SAEED To: ALFONSO KHAN Sent: 04/27/2017 3:45:26 PM ([facility]-06:00) Central Time ([place] & [place]) Subject: RE: Lab results Merrick Hamilton, Just checking in with you! I'm feeling ok, just taking everything day by day. I've been taking my meds, right now it's just a matter of being distracted and busy. I'm going to spend some time with Lc and Oswaldo james, so I'm sure after a night with them my spirits will be lifted :) See you in a couple weeks Valeri From: ALFONSO KHAN To: VALERI SAEED Sent: 04/24/2017 17:13:46 CDT Subject: RE: Lab results Valeri, Thank you for letting me know. I would be glad to see you tomorrow. It looks like they already have you on my schedule for the morning-- they did not schedule enough time for the visit, would it be possible for you to check in around 9 am instead of 9:15? Alfonso From: VALERI SAEED To: ALFONSO KHAN Sent: 04/24/2017 2:36:13 PM ([facility]-06:00) Central Time ([place]) Subject: RE: Lab results Robi Hamilton, I've been having a problem with some pretty bad suicidal thoughts over the past few days. I went tosee my therapist, Debbi Torres, and she recommended I message you and make an appointment to go over medication and perhaps have a different option. I haven't been taking my meds for about six months and made sure to start again yesterday. I know it'll take a few weeks to kick in, but I wanted to see if you think I should come in. I should also let you know that Debbi is going to try and contact you sometime today or tomorrow. Valeri From: ALFONSO KHAN To: VALERI SAEED Sent: 10/31/2016 08:55:11 CDT Subject: RE: Lab results Valeri, Thanks for getting in touch. I have never heard that as a side effect- is it just a small amount of bleeding or a full period after intercourse? It is reassuring that your pap smear and swabs were negative. Any new vaginal discharge? Concern for STDs? You can certainly try Ibuprofen 600 mg three timesa day for 5 days and it may get better. If that doesn't seem to help, come on back and we can make sure that there is no other reason for the bleeding. I definitely understand how that would be annoying! Let me know if you need anything :) Alfonso From: VALERI SAEED To: ALFONSO KHAN Sent: 10/29/2016 10:47:21 PM ([facility]-06:00) Central Time ( & [place]) Subject: RE: Lab results Merrick Hamilton! So I had a concerning question regarding the nexplanon. I knew going into this that my hormones might be a little messed up for a while that my period may come and go, but every time after my boyfriendand I have sex I get my period. Every. Single. Time and it's as if I was getting my normal period. At first I was ok with it because that meant I wasn't but now that I've had it in for almost 6 months its getting worse. Is this something that taking a lot of ibuprofen would help or should I come in and see you?? Hope everything's been going well! Valeri Saeed From: ALFONSO KHAN To: VALERI SAEED Sent: 06/20/2016 11:38:34 RN REHAB Subject: Lab results Valeri, Your pap smear came back normal! Your next pap smear will be due in 3 years. I hope your arm is feeling ok today! Let me know if you need anything :) Alfonso [facility] Document Id: [id number] Miscellaneous - Alfonso Khan P.A.-C. - 05/30/2017 12:43 PM CDT Custom Result Letter May 30, 2017 VALERI SAEED [address] [place] [address] Dear VALERI SAEED, Fax to: [phone] To [facility] [employer] [place] for the [employer] program: My name is Alfonso and I am Valeri Saeed's primary care provider. I have been working with Valeri for the past year. She has been struggling with depression and anxiety for the past year and has had difficulties staying compliant with her medications/ therapy. Unfortunately, we have been trying to work through this for the past few months with only recently finding a solution that has been working well for her. Her schoolwork has suffered as a result of this. We will continue to work together with regular visits and communication to ensure that her mental health stays well controlled. I strongly believe that she is ready to go back to school and support her efforts to finish her degree. If you have any questions or concerns, please feel free to call. Sincerely, ALFONSO KHAN [address] [place] [address] Electronic Signature Electronically Signed By: ALFONSO KHAN On: May 30, 2017 This document has images extracted. Source: [facility] POWERCHART Document Id: [id number] Telephone Encounter - Wandy Luciano Abelardo - 05/30/2017 6:55 AM CDT Sergio/laura information Document Contains Addenda Addendum by RIVERA PETERSON LPN on May 30, 2017 07:46:40 CDT From: RIVERA PETERSON LPN ([address] Nurse) To: ALFONSO KHAN; Sent: 05/30/2017 07:46:40 CDT Subject: FW: Sergio/letter information From: WANDY LUCIANO ( Nurse Line) To: [facility] 2E Nurse; Sent: 05/30/2017 06:55:04 CDT Subject: Sergio/letter information From: VALERI SAEED To: [facility] ( Nurse Line) Sent: 05/29/2017 12:17 p.m. CDT Subject: RE: Lab results Thank you for your message. It has been successfully sent to the appropriate care team. 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 Basically all that would need to be in the letter is that: 1) nya struggled with taking my meds 2) I have depression and anxiety and that I havent been mentally stable for months now 3) that Nya been seeing you/communicating with you regularly You can add anything you feel comfortable telling them, but thank you so so so much! It can be faxed to [phone] or you can email it to [email or web address] From: ALFONSO KHAN To: VALERI SAEED Sent: 05/29/2017 11:23:55 CDT Subject: RE: Lab results Valeri, That is so great to hear! I am so glad for you. I am actually working in a different part of the clinic today so it is not quite as easy for me to reach out via phone call. I would be happy to write a letter for you. What college is it for? Is there anything in particular that you would like me to include in the letter? Otherwise, I will likely be pretty vague and just state that we have been workingthrough mental health concerns and now that you are in a good place, that I would be in complete agreement with you getting back into school to complete your degree. Once we get this, we can either mail it to you, hold it at the front end loader driver, or mail it to the school if you have an address. Please let me know what you would like us to do with this. Alfonso From: VALERI SAEED To: ALFONSO KHAN Sent: 05/29/2017 11:17:19 AM ([facility]-06:00) Central Time ([place]) Subject: RE: Lab results Merrick Hamilton! Just wanted to update you- I feel like a completely different person. Im waking up happy every morning, Im motivated to do more with my day, Im not sleeping nearly as much as I used to. And I feel GREAT. 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 The application is asking me for a letter from my health provider stating that I was not in a healthy state of mind when I was suspended. If you could call me or youd like me to make an appointment so we can talk, that would be great. I talked to Debbi already and she said that shed be more than happy to help but that your word would probably go farther with the financial analyst accountant committee than hers because you have the medical degree. Please get back me whenever you have a sec! Thanks! Valeri From: ALFONSO KHAN To: VALERI SAEED Sent: 04/28/2017 19:58:13 CDT Subject: RE: Lab results Thank you for the update! Thats the best way to do it- day by day. Just keep being honest with yourself and all of those closest to you. I remember you saying that you have an appointment with Debbi on Saturday-- maybe update me at the end of the week again before the weekend? Alfonso From: VALERI SAEED To: ALFONSO KHAN Sent: 04/27/2017 3:45:26 PM ([facility]-06:00) Central Time ([place]) Subject: RE: Lab results Hey Alfonso, Just checking in with you! Im feeling ok, just taking everything day by day. Nya been taking my meds, right now its just a matter of being distracted and busy. Im going to spend some time with Lc ramirez, so Im sure after a night with them my spirits will be lifted :) See you in a couple weeks Valeri From: ALFONSO KHAN To: VALERI SAEED Sent: 04/24/2017 17:13:46 CDT Subject: RE: Lab results Valeri, Thank you for letting me know. I would be glad to see you tomorrow. It looks like they already have you on my schedule for the morning-- they did not schedule enough time for the visit, would it be possible for you to check in around 9 am instead of 9:15? Alfonso From: VALERI SAEED To: ALFONSO KHAN Sent: 04/24/2017 2:36:13 PM ([facility]-06:00) Central Time ([place]) Subject: RE: Lab results Robi garza Nya Hamilton been having a problem with some pretty bad suicidal thoughts over the past few days. I went to see my therapist, Debbi Torres, and she recommended I message you and make an appointment to go over medication and perhaps have a different option. I havent been taking my meds for about six months and made sure to start again yesterday. I know itll take a few weeks to kick in, but I wanted to see if you think I should come in. I should also let you know that Debbi is going to try and contact you sometime today or tomorrow. Valeri From: ALFONSO KHAN To: VALERI SAEED Sent: 10/31/2016 08:55:11 CDT Subject: RE: Lab results Valeri Thanks for getting in touch. I have never heard that as a side effect- is it just a small amount of bleeding or a full period after intercourse? It is reassuring that your pap smear and swabs were negative. Any new vaginal discharge? Concern for STDs? You can certainly try Ibuprofen 600 mg three timesa day for 5 days and it may get better. If that doesnt seem to help, come on back and we can make sure that there is no other reason for the bleeding. I definitely understand how that would be annoying! Let me know if you need anything :) Alfonso From: VALERI SAEED To: ALFONSO KHAN PAC Sent: 10/29/2016 10:47:21 PM ([facility]-06:00) Central Time ( & [place]) Subject: RE: Lab results Heanisha Hamilton! So I had a concerning question regarding the nexplanon. I knew going into this that my hormones might be a little messed up for a while that my period may come and go, but every time after my boyfriendand I have sex I get my period. Every. Single. Time and its as if I was getting my normal period. Atfirst I was ok with it because that meant I wasnt but now that Nya had it in for almost 6 months its getting worse. Is this something that taking a lot of ibuprofen would help or should I comein and see you?? Hope everythings been going well! Valeri Saeed From: ALFONSO KHAN PAC To: VALERI SAEED Sent: 06/20/2016 11:38:34 RN REHAB Subject: Lab results Valeri, Your pap smear came back normal! Your next pap smear will be due in 3 years. I hope your arm is feeling ok today! Let me know if you need anything :) Alfonso [facility] Document Id: [id number] Miscellaneous - Alfonso Khan P.A.-C. - 05/29/2017 11:23 AM CDT RE: Lab results From: ALFONSO KHAN To: VALERI SAEED Sent: 05/29/2017 11:23:55 CDT Subject: RE: Lab results Valeri, That is so great to hear! I am so glad for you. I am actually working in a different part of the clinic today so it is not quite as easy for me to reach out via phone call. I would be happy to write a letter for you.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 Concerns : None Behavioral Health Screen/Safety Assmt : No Roman Catholic Preference : No qualifying data available. MICHAEL ALBRIGHT [facility] 06/13/2016 10:40 RN REHAB Advance Directive Advanced Directives : No Advance Directive Additional Information : No MICHAEL ALBRIGHT [facility] 06/13/2016 10:40 RN REHAB Educ Needs Learning Style Preference Adult Grid Patient : Verbal explanation Family : None MICHAEL ALBRIGHT [facility] 06/13/2016 10:40 RN REHAB Source: [employer] Document Id: [id number] RN REHAB!36 REHAB documented in this encounter Plan of Treatment Not on filedocumented as of this encounter Procedures Procedure Name Priority Date/Time Associated Comments Diagnosis CHLAMYDIA/GONORRHOEAE Routine 06/13/2016 5:02 PM Results for this AMPLIFIED RNA RN REHAB procedure are in the results section. CHLAMYDIA TRACHOMATIS Routine 06/13/2016 5:02 PM Results for this AMPLIFIED RNA RN REHAB procedure are in the results section. LIPID PANEL, S Routine 06/13/2016 11:45 Results f or this AM RN REHAB procedure are i n the results section. GLUCOSE, FASTING, S/P Routine 06/13/2016 11:45 Re sults for this AM RN REHAB procedure are i n the results section. PATHOLOGY WIRELESS TEAM MEMBER Routine 06/13/2016 12:00 Results fo r this CYTOLOGY AM RN REHAB procedure are i n the results section. documented in this encounter Results Chlamydia / Gonorrhoeae Amplified RNA (06/13/2016 5:02 PM RN REHAB) Component Value Ref Test Analysis Performed At [facility] gist Range Method Time Signature HX GC by Nucleic POWERCHART Acid Amplification HXFinal Negative for POWERCHART Neisseria gonorrhea by RNA amplification . HXFinal Reference: POWERCHART Negative HXFinal If you POWERCHART submitted a female urine sample, please note it is a Laboratory Developed Test. Specimen (Source) Anatomical Collection Method Collection Time Re ceived Time Location / / Volume Laterality Vagina 06/13/2016 5:02 PM RN REHAB Alfonso Khan P.A.-C. LAB MICROBIOLOGY - GENERAL O RDERABLES Performing Organization Address City/State/ZIP Code Phon e Number POWERCHART Chlamydia Trachomatis Amplified RNA (06/13/2016 5:02 PM RN REHAB) Component Value Ref Test Analysis Performed At [facility] gist Range Method Time Signature HXChlamydia by POWERCHART Nucleic Acid Amplification HXFinal Negative for POWERCHART Chlamydia trachomatis by RNA amplification. HXFinal Reference: POWERCHART Negative HXFinal If you POWERCHART submitted a female urine sample, please note it is a Laboratory Developed Test. Specimen (Source) Anatomical Collection Method Collection Time Re ceived Time Location / / Volume Laterality Vagina 06/13/2016 5:02 PM RN REHAB Alfonso Khan P.A.-C. LAB MICROBIOLOGY - GENERAL O RDERABLES Performing Organization Address City/State/ZIP Code Phon e Number POWERCHART Glucose, Fasting (06/13/2016 11:45 AM RN REHAB) athologist Signature Glucose, 97 70 - 99 POWERCHART Fasting, S MGDL Specimen (Source) Anatomical Collection Method Collection Time Re ceived Time Location / / Volume Laterality Blood 06/13/2016 11:45 AM RN REHAB Alfonso Khan P.A.-C. LAB BLOOD NON ADD-ON Performing Organization Address City/State/ZIP Code Phon e Number POWERCHART Lipid Panel (06/13/2016 11:45 AM RN REHAB) athologist Signature Total 1.87 POWERCHART Cholesterol/HDL Ratio Calculated LDL 67 <=129 MGDL POWERCHART Comment: 2014 National Lipid Association recommen dations for LDL-C in adults ages 18 and up: Desirable <100 mg/dL Above desirable 100-129 mg/dL Borderline high 130-159 mg/dL High 160-189 mg/dL Very High 190 mg/dL 2014 National Lipid Association recommen dations for LDL-C in children ages 2 to 17. Acceptable <110 mg/dL Borderline High 110-129mg/dL High 130 mg/dL LDL-C >190mg/dL: The markedly elevated LDL level is suggestive of a genetic condition such as familial hypercholesterolemia(FH) or familial defective apolipoprotein B-100 (FDB). Molecular genetic t esting for FH and FDB is available [facility]: FH/ADH Genetic Reflex Valdez el (test ADHP). Acquired (non-genetic) causes of markedly increased LDL cholesterol include cholestatic liver disease due to the presence of LpX. If a genetic form of hypercholesterolemia is suspected, family studies including biochemical testing fo r lipids (total cholesterol,triglycerides, LDL cholesterol and HDL cholesterol) are recommended. ??Please contact the laboratory at or the on-line test catalog at [email or web address] for information about how to order these allan ts or to speak with a genetic counselor. Further interpretation would require clinical information. Cholesterol, Total 163 <=199 MGDL POWERCHART Comment: 2014 National Lipid Association recommen dations for Total Cholesterol in adults ages 18 and up: Desirable <200 mg/dL Borderline high 200-239 mg/dL High 240 mg/dL 2014 National Lipid Association recommen dations for Total Cholesterol in children ages 2 to 17. Acceptable <170 mg/dL Borderline High 170-199 mg/dL High 200 mg/dL HX HDL 87 >=50 MGDL POWERCHART Comment: 2014 National Lipid Association recommen dations for HDL-C in adults ages 18 and up: Low <40 mg/dL (Men) Low <50 mg/dL (Women) 2014 National Lipid Association recommen dations for HDL-C in children ages 2 to 17. Low <40 mg/dL Borderline Low 40-45 mg/dL Acceptable >45 mg/dL Triglycerides 45 <=149 MGDL POWERCHART Comment: 2014 National Lipid Association recommen dations for Triglycerides in adults ages 18 and up: Normal <150 mg/dL Borderline High 150-199 mg/dL High 200-499 mg/dL Very High 500 mg/dL 2014 National Lipid Association recommen dations for Triglycerides in children ages 2 to 9. Acceptable <75 mg/dL Borderline High 75-99 mg/dL High 100 mg/dL 2014 National Lipid Association recommen dations for Triglycerides in children ages 10 to 17. Acceptable <90 mg/dL Borderline High 90-129 mg/dL High 130 mg/dL Trigs >400mg/dL: Triglycerides >400 mg/ dL. Calculated LDL cholesterol is not valid. Non-HDL cholesterol may be used for risk assessment when triglycerides are >400mg/dL. HXLDL/HDL 1 POWERCHART Specimen (Source) Anatomical Collection Method Collection Time Re ceived Time Location / / Volume Laterality Blood 06/13/2016 11:45 AM RN REHAB Alfonso Khan P.A.-C. LAB BLOOD ADD-ON Performing Organization Address City/State/ZIP Code Phon e Number POWERCHART Pathology WIRELESS TEAM MEMBER Cytology (06/13/2016 12:00 AM RN REHAB) Specimen (Source) Anatomical Location Collection Method / Collectio n Time Received Time / Laterality Volume 06/13/2016 Narrative [facility] - 06/20/2016 11:17 AM RN REHAB [facility] in [address] ??[phone] Patient Name: VALERI SAEED Patient ID #: [id number] Collected: 06/13/2016 Address: [facility]/Zip: [address] [place] [address] ??[id number] Received: Reported: 06/14/2016 06/20/2016 Soc. Sec. #: ?/Age/Sex 1990 (Age: 26) ??F Physician(s): SUNITHA BOCANEGRA Copy To: ? [facility] ?? [phone] [facility] ??[id number] CYTOPATHOLOGY WIRELESS TEAM MEMBER REPORT FINAL CYTOLOGIC DIAGNOSIS Pap Smear VCE - ThinPrep: NEGATIVE FOR INTRAEPITHELIAL LESION OR MALIGNANCY ENDOCERVICAL CELLS/COMPONENT PRESENT. SATISFACTORY SPECIMEN FOR EVALUATION. Electronically Signed Out By amb/06/20/[address](ASCP) The Pap test is a screening procedure an d, as such, is subject to both false positive and false negative results as evidenced by published data. ??It is not a diagnostic test and results should be inter preted in the context of the patient's h istory and other clinical findings. ??Obtaining per iodic Pap tests may help to minimize the consequences of any false negatives that may occur. SPECIMEN(S) RECEIVED: Pap Smear VCE - ThinPrep CLINICAL HISTORY: CONTROL Date of Last Menstrual Period: 05/15/2016 Hormonal History: Hormone therapy Other Clinical Conditions: HPV TYPING REQUESTED: IF ASCUS Alfonso Khan P.A.-C. LAB PAP COPATH ORDERABLES Performing Organization Address City/State/ZIP Code Phon e Number [facility] documented in this encounter Visit Diagnoses Not on filedocumented in this encounter Additional Health Concerns Assessment Noted Time PHQ-9 Depression Total Score: 15 06/13/2016 10:[address] documented as of this encounter
--- OUTSIDE RECORDS SUMMARY | 2022-05-23 11:09 | XMS_ITS | Encounter Summary ---
:1990 Author Organization [facility] Address [address] [place] [address] Care Team Providers Name Role Phone Unavailable Primary Care Provider Unavailable Encounter Details Date Type Department Care Team Description 06/19/2016 Hospital Encounter HX [facility]ILY[facility] Abelardo [...] or relatives? How often do you attend buddhism or Never 2018 anabaptist services? 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[employer] documented as of this encounter Last Filed Vital Signs Vital Sign Reading Time Taken Comments Blood Pressure 112/72 06/19/2016 10:11 AM LEAD [employer] Pulse 72 06/19/2016 10:11 AM LEAD [employer] Temperature - - Respiratory Rate - - Oxygen Saturation - - Inhaled Oxygen Concentration - - Weight 60 kg (132 lb 4.4 oz) 06/19/2016 10:11 AM LEAD [employer] Height 167 cm (5' 5.75) 06/19/2016 10:11 AM LEAD [employer] Body Mass Index 21.51 06/19/2016 10:11 AM LEAD [employer] documented in this encounter Medications at Time of Discharge Medication Sig Dispensed Refills Start Date End Date LORazepam (ATIVAN) 1 mg Take 1 tablet by 0 201408/06/2017 tablet mouth 2 (two) times a day as needed. NAPROXEN SODIUM (ALEVE Take by mouth as 0 011 05/06/2019 ORAL) needed. documented as of this encounter Procedure Notes Alfonso Hill P.A.-C. - 06/19/2016 5:11 PM CST Procedure note CHIEF COMPLAINT/REASON FOR VISIT Nexplanon insertion MEDICATIONS Aleve, PO, PRN Ativan 1 mg oral tablet, 1 mg, 1 tab(s), target Roch, PO, 2xDay, PRN, 5 refills Flonase 50 mcg/inh nasal spray, 2 spray(s), Nostrils(Both), Daily, 8 refills sertraline 100 mg oral tablet, 100 mg, 1 tab(s), Take 1/2 tab (50 mg) daily. After 2 weeks, can increase to 100 mg daily., PO, Daily, 3 refills Sprintec 0.25 mg-35 mcg oral tablet, 1 tab(s), PO, Daily, 4 refills, * Zoloft 50 mg oral tablet, 50 mg, 1 tab(s), PO, Daily, 3 refills * indicates non-compliance ALLERGIES NKA PAST MEDICAL HISTORY Chronic Anxiety disorder NOS Depression Major One Episode Moderate Rhinitis, Allergic Subdermal Implantable Contraceptive Insertion SOCIAL HISTORY Date Time: 06/19/2016 10:11 Tobacco: Smoking Status: Never smoker Exposure: Other: NEVER Alcohol: Use: No Results Found Recreational Drugs: Use: None Type: No Results Found VITAL SIGNS HR: 72 BP: 112 / 72 HT: 167 cm WT: 60.0 kg BMI: 21.51 Perry is a 26-year-old female who presents to clinic for Nexplanon insertion. I last saw her on 06/13/16. At that time, we discussed the different contraceptive options available. She had previously been taking Sprintec as her contraceptive choice, but was not good at remembering to take the pill daily. LMP 06/15/16. She is not desiring in the near future. We reviewed the risks and benefits to this method of contraception. She does not have any contraindications including: history of bleeding disorders, clotting disorders, liver disease, abnormal vaginal bleeding, history of breast cancer, migraines with aura. Patient is not a tobacco user. The patient signed a consent form that will be scanned into the EMR. Discussed common side effects including irregular menstrual bleeding. Discussed possible complications of this procedure including infection, bleeding, improper placement. Also discussed the significant possible adverse effects including possible migration of the implant requiring a more complicated procedure for removal. PROCEDURE Patient name and date of confirmed with patient. Patient was placed in a supine position. Theprocedure was performed using sterile technique. The left arm was marked at two locations (8 cm and 12 cm proximal to the medial epicondyle), using care to avoid the sulcus between the biceps and triceps muscles. Insertion site was cleansed with an alcohol prep pad and anesthetized with 1.5 mL of 1% lidocaine with epinephrine along the planned insertion tunnel. Skin was cleansed with an iodine swab. While stretching the skin around the insertion site, the skin was punctured with the tip of the needle at a slight angle. The Nexplanon applicator was then advanced to its full length and the implant was inserted. The insertion site was covered with a small bandage. The patient and I both confirmed thepresence of the 4 cm honey in the subdermal position. Area was covered with pressure gauze to prevent bruising. Patient provided with user card. Plan to keep the sterile gauze on for the next 24 hours. She should leave the small bandage in place for the next 3-5 days. Patient should have the Nexplanon removed on or before 06/19/2019. Patient expresses understanding and agreement with the above plan. 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 - 06/19/2016 10:11 AM CST Adult Associate Pastor Intake/History Adult Associate Pastor Intake/History Entered On: 06/19/2016 10:16 LEAD WORKER OF HOU[employer]KEEP[employer]UN[employer] Performed On: 06/19/2016 10:11 LEAD WORKER OF HOU[employer]KEEPING [employer] LAUNDRY by TIMOTHY JUNIOR LPN Intake Chief Complaint : Nexplanon LMP Date : 06/15/16 Peripheral Pulse Rate : 72 /min Heart Rhythm : Regular Systolic Blood Pressure : 112 mmHg Diastolic Blood Pressure : 72 mmHg NIBP Mean : 85 mmHg BP Location : Right upper extremity Blood Pressure Cuff Size : Regular Height : 167 cm(Converted to: 5 ft 6 inch(es), 66 inch(es)) Actual Weight : 60.0 kg(Converted to: 132 lb 4 oz) Weight Source : Standing scale Dosing Weight Clinic : 60 kg Clinic BSA : 1.67 Body Mass Index : 21.51 kg/m2 TIMOTHY JUNIOR LPN - 06/19/2016 10:11 LEAD WORKER OF HOU[employer]KEEP[employer]UNDR[employer] General Info Languages : Moldovan Is Patient Female and 13-50 no hysterectomy : Yes Status : Patient denies Are you ? 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 [employer]UN[employer] Subjective Pain Symptoms 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UN[employer] Dependent Habits Exposure to Tobacco Smoke : Other: NEVER Smoking Status : Never smoker Tobacco 2A : No Tobacco Use/Currently Using : No Tobacco Use/Last 30 Days : No Tobacco Use/Last 12 months 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 [employer]UNDR[employer] Caffeine Use Grid Caffeine Use : Current Type : Chocolate, Coffee, Soft drinks Frequency : Daily Amount : pop 2 cans per day TIMOTHY JUNIOR LPN - 06/19/2016 10:11 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
--- OUTSIDE RECORDS SUMMARY | 2022-05-23 11:09 | XMS_ITS | Encounter Summary ---
:1990 Author Organization [facility] Address [address] [place] [address] Care Team Providers Name Role Phone Unavailable Primary Care Provider Unavailable Encounter Details Date Type Department Care Team Description 05/27/2012 Hospital Encounter HX [facility] Jason Hernandez M.D. [address] [place] [address] Social History Tobacco [...] or relatives? How often do you attend christian or Never 2018 restoration services? 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 documented as of this encounter Progress Notes Tanmay Hernandez M.D. - 05/27/2012 2:50 PM CDT [id number] CHIEF COMPLAINT/REASON FOR VISIT Med followup. HISTORY OF PRESENT ILLNESS 22-year-old female being treated primarily for anxiety with a depression component with a low dose of Effexor presents in followup. She has been very pleased with the response, feeling that she is muchless anxious about events. She does list some examples where she is able to go places by herself nowthat she would not have dared to have accomplished before being on Effexor. She states she was able to wait in front of a friend's house for about 15 minutes at nighttime several nights ago in the car by herself. This would have been impossible before the medication, as she would have been extremely nervous, anxious and terrified and have to run in the house or driven away. She does mention that she still has someone walk her out to her car when in dangerous places, but I do not think that is a bad idea for a young woman or bad habit to be in and encouraged her to continue similar behaviors. She did have a little bit of side effect with a little bit of nausea with the medication but finds that if she takes it with something in her stomach it is not an issue. That should not be a problem since it is a once a day drug and hopefully she will develop a tolerance for that side effect. Otherwise we did repeat PHQ-9 form and she did come up with several 1s for a total score of 5, which is dramatically better than our last evaluation. No suicidal ideations. The patient, in fact, states that she was just thinking about this the other day and that those thoughts that she had dealt with periodically in the last months that were frightening to her have entirely resolved. CURRENT MEDICATIONS Effexor 37.5 mg XL tablet daily ALLERGIES None. VITAL SIGNS TEMPERATURE: 36.7 Celsius PULSE: 80 RESPIRATORY RATE: 12 BLOOD PRESSURE: 112/68 WEIGHT: 60 kg PHYSICAL EXAMINATION MENTAL STATUS: Had the patient with an upbeat positive and optimistic mood and affect. No sign of anxiety or depression in either. No suicidal ideation. IMPRESSION/REPORT/PLAN Generalized anxiety disorder with lesser depression component, much improved on Effexor low dose. The plan is to continue the medicine long-term. In fact, she can continue it for a year before recheck if she chooses to do so and it sounds like she is happy enough with the medicine that that is probably going to be the case. She will follow up for further problems or concerns. Tanmay Hernandez M.D./fer Electronically Signed By: TANMAY HERNANDEZ MD On: 05/30/2012 08:03 AM Source: [facility] MHSDOLBEYNONRADSYS Document Id: [id number] documented in this encounter Miscellaneous Notes Miscellaneous - Tanmay Hernandez M.D. - 05/28/2012 8:04 AM CDT Ambulatory Patient Summary [facility] [address] [place] [id number] Visit Information Name: VALERI DILLARD Current Date: 05/28/2012 08:04:11 Physicians Attending Provider: TANMAY HERNANDEZ MD Primary Care Provider: TANMAY HERNANDEZ MD Your Medications Here is a list of your medications. It is important to take your medications as directed. Use a pillbox or chart to help remind you to take your medications. Please let your doctor or nurse know if you have problems taking your medications. Medication/Strength Dose Route Frequency Indications/Special Instructions/Comments venlafaxine (Effexor XR 37.5 mg oral capsule, extended release) 37.5 mg Oral once a day ondansetron (Zofran 4 mg oral tablet) 4 mg Oral every 8 hours as needed for Nausea norgestimate-ethinyl estradiol (Sprintec 0.25 mg-35 mcg oral tablet) 1 tab(s) Oral once a day fluticasone nasal (Flonase) 2 spray(s) Nostrils(Both) once a day naproxen (Aleve) Oral as [...] No Appointments found Your Goals/Additional instructions: Source: [facility] POWERCHART Document Id: [id number] Miscellaneous - Tanmay Hernandez M.D. - 05/28/2012 8:04 AM CDT Ambulatory Depart Summary [address] [id number] Visit Information Name: VALERI DILLARD Visit Date: 05/28/2012 08:04:10 Attending Provider: TANMAY HERNANDEZ MD Primary Care [...] medications. Medication/Strength Dose Route Frequency Indications/Special Instructions/Comments venlafaxine (Effexor XR 37.5 mg oral capsule, extended release) 37.5 mg Oral once a day ondansetron (Zofran 4 mg oral tablet) 4 mg Oral every 8 hours as needed for Nausea norgestimate-ethinyl estradiol (Sprintec 0.25 mg-35 mcg oral tablet) 1 tab(s) Oral once a day fluticasone nasal (Flonase) 2 spray(s) Nostrils(Both) once a day naproxen (Aleve) Oral as needed Attention: If you have any medications at home that are not on this list, DO NOT take them until youcontact your provider for clarification. Additional Information: Source: [facility] POWERCHART Document Id: [id number] Miscellaneous - Conversion, Historical Provider Ser - 05/27/2012 3:13 PM CDT Adult Seeing Eye Dog Trainer Intake/History Adult Seeing Eye Dog Trainer Intake/History Entered On: 05/27/2012 15:17 CDT Performed On: 05/27/2012 15:13 CDT by POONAM PIERCE Intake Chief Complaint : follow up on Effexor-did get some nausea if takes med without eating-has taken it after eating and nausea has decreased/feels like it is working at current dose/filling out PHQ-9 today Temperature Oral : 36.7C(Converted to: 98.1DegF) Peripheral Pulse Rate : 80/min Respiratory Rate : 12/min (LOW) Heart Rhythm : Regular Systolic Blood Pressure : 118mmHg Diastolic Blood Pressure : 68mmHg NIBP Mean : 85mmHg BP Location : Right upper extremity Blood Pressure Cuff Size : Regular Oxygen Therapy : Room air Actual Weight : 60kg(Converted to: 132lb 4oz) Weight Source : Standing scale Dosing Weight Clinic : 60.00kg POONAM PIERCE - 05/27/2012 15:13 CDT General Info Information Given By : Patient Preferred Communication Mode : Verbal Languages : Setswana POONAM PIECRE 05/27/2012 15:13 CDT Subjective Pain Symptoms : No POONAM PIERCE 05/27/2012 15:13 CDT Dependent Habits Tobacco Use/Currently Using : No Exposure to Tobacco Smoke : Other: NEVER Smoking Status : Never smoker Alcohol Use : No POONAM PIERCE 05/27/2012 15:13 CDT Caffeine Use Grid Caffeine Use : Current Type : Chocolate, Coffee, Soft drinks Frequency : Daily Amount : pop 2 cans per day POONAM PIERCE - 05/27/2012 15:13 CDT Recreational Drug Use Grid Drug Use : None POONAM PIERCE 05/27/2012 15:13 CDT Allergy Allergies (Active) NKA Estimated Onset Date: Unspecified ; Created By: KIRSTEN SILVERIO; Reaction Status: Active ; Category: Drug ; Substance: NKA ; Type: Allergy ; Updated By: KIRSTEN SILVERIO; Reviewed Date: 05/27/2012 15:12CDT Source: [facility] One Hour Translation Document Id: [id number] documented in this encounter Plan of Treatment Not on filedocumented as of this encounter Visit Diagnoses Not on filedocumented in this encounter
--- OUTSIDE RECORDS SUMMARY | 2022-05-23 11:09 | XMS_ITS | Encounter Summary ---
:1990 Author Organization [facility] Address [address] [place] [address] Care Team Providers Name Role Phone Unavailable Primary Care Provider Unavailable Encounter Details Date Type Department Care Team Description 06/13/2016 Hospital Encounter HX NO MAPPING Alfonso Hill P. A.-C. Social History Tobacco Use Types Packs/Day Years [...] do you attend zoroastrian or Never 2018 scientology services? 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 NAPROXEN SODIUM (ALEVE Take by mouth as 0 07/15/2 011 05/06/2019 ORAL) needed. documented as of this encounter Miscellaneous Notes Miscellaneous - Conversion, Historical Provider Ser - 06/13/2016 11:59 PM ADVERTISING COPY WRITER Coding Summary-Paper Based CODING DATE: 06/25/2016 FINAL [facility] STATUS: * Discharged to Home or Self Care PAYOR: Medicaid ADMIT DX: REASON FOR VISIT DX: FINAL DX: PRINCIPAL: Z11.3 Encounter for screening for infections with a predominantly sexual mode of transmission SECONDARY: PROCEDURES DOCTOR NAME DATE NOTE: The code number assigned matches the documented diagnosis and / or procedure in the patient's chart. However, the narrative phrase printed from the coding software may appear abbreviated, or result in slightly different terminology. Coded By: ANITHA WASHINGTON Date Saved: 06/25/2016 07:40 am Source: AskYou Document Id: [id number] documented in this encounter Plan of Treatment Not on filedocumented as of this encounter Visit Diagnoses Not on filedocumented in this encounter Additional Health Concerns Assessment Noted Time PHQ-9 Depression Total Score: 15 06/13/2016 10:[address] documented as of this encounter
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
--- OUTSIDE RECORDS SUMMARY | 2022-05-23 11:09 | XMS_ITS | Encounter Summary ---
:1990 [address] Organization [facility] Address [address] [place] [address] Care Team Providers Name Role Phone Alfonso Hill P.A.-C. Primary Care Provider Unavailable Encounter Details Date Type Department Care Team Description 04/25/2017 Hospital Encounter [facility]X [facility] Abelardo [...] do you attend worship or Never 2018 advent services? 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 - 04/25/2017 1:57 PM CDT FM-LE CHIEF COMPLAINT/REASON FOR VISIT f/u meds and anxiety HISTORY OF PRESENT ILLNESS Perry is a 27-year-old female who presents to clinic for follow up of anxiety. I have not seen her since 06/13/16. She had an unexpected breakdown at work earlier this week and has been struggling withsuicidal ideations since that time. She immediately told her boyfriend and sister about this then followed up with her therapist. When I last saw her, she had started taking the Sertraline daily and took this for 1-1.5 months. She stopped taking it as she felt that she would forget too many doses. Torialso struggled with decreased libido while on this. She feels that she is currently struggling with racing thoughts, easy distractibility, and significant highs and lows. She states that she will have i ntermittent days of euphoria. She had heard once about borderline personality disorder and wondersif she could have this. When asked specifically about suicide plans, she states that earlier this week she thinks that she could have gone through with it as she was struggling significantly. She thinks that she would have tried something painless, such as taking too many pills. She now feels comfortable at home as she is almost always surrounded by loved ones. She has a follow up with her therapist early next week. She has no other concerns today. MEDICATIONS Aleve, PO, PRN Ativan 1 mg oral tablet, 1 mg, 1 tab(s), target Roch, PO, 2xDay, PRN, 5 refills Flonase 50 mcg/inh nasal spray, 2 spray(s), Nostrils(Both), Daily, 8 refills, * sertraline 100 mg oral tablet, 100 mg, 1 tab(s), Take 1/2 tab (50 mg) daily. After 2 weeks, can increase to 100 mg daily., PO, Daily, 3 refills, * Zoloft 50 mg oral tablet, 50 mg, 1 tab(s), PO, Daily, 3 refills, * * indicates non-compliance ALLERGIES NKA PAST MEDICAL HISTORY Chronic Anxiety disorder NOS Depression Major One Episode Moderate Rhinitis, Allergic Subdermal Implantable Contraceptive Insertion SOCIAL HISTORY Date Time: 04/25/2017 09:07 Tobacco: Smoking Status: Never smoker Exposure: Other: NEVER Alcohol: Use: No Results Found Recreational Drugs: Use: None Type: No Results Found VITAL SIGNS T: 36.5 ??C (Oral) HR: 72 BP: 108 / 74 HT: 167 cm WT: 67.8 kg PHYSICAL EXAMINATION GENERAL: Alert female in no acute distress. LUNGS: Normal effort on room air. Clear to auscultation bilaterally. CARDIOVASCULAR: Regular rate and rhythm. PSYCH: Very pleasant and cooperative. Normal thought process and content. PHQ-9 score of 20, DEB-7 score of 16. IMPRESSION/REPORT/PLAN 1. Depression Major One Episode Moderate 2. Anxiety Generalized Disorder Discussed different options for management today. As patient declines current suicidal ideations, we agreed to contract for safety with close follow up. We did go through the criteria for both bipolardisorder and borderline personality disorder, but she does not seem to fit these criteria, which wasreassuring. We discussed the different medication options available. Would prefer to leave her on a shorter-acting SSRI so we will plan to restart Zoloft again. Her boyfriend will help to make sure that she is taking this daily. All other medications will be locked up or made inaccessible to her. She does not have access to any guns or other weapons in the home. She will plan to work with her family and friends closely over the next few weeks. She should keep her appointment with her therapist earlynext week and then schedule a follow up with me for the week after that. I would like for her to keep me in the loop via patient portal at least once weekly as well. Agreed that she will go to the emergency department if her symptoms worsen or if she ever feels unsafe in her home. Patient expresses understanding and agreement with the above plan. Alfonso Hill PA-C Total time: 25 minutes, 22 minutes spent in discussion/ counseling. Electronically Signed By: ALFONSO HILL On: 05/02/2017 09:09 AM Source: [facility] [employer] Document Id: [id number] documented in this encounter Miscellaneous Notes Miscellaneous - Wali Anderson L.P.N. - 04/25/2017 4:37 PM CDT DEB-7 DEB-7 Entered On: 04/25/2017 16:38 CDT Performed On: 04/25/2017 16:37 CDT by WALI ANDERSON LPN GAD7 GAD7 Feeling nervous : More than half the days GAD7 Not able to control worry : Nearly every day GAD7 Worrying too much : Nearly every day GAD7 Trouble relaxing : More than half the days GAD7 Being so restless : Not at all GAD7 Becoming easily annoyed : Nearly every day GAD7 Feeling afraid : Nearly every day GAD7 Total Score : 16 Problems make work, home, or dealing with others : Somewhat difficult WALI ANDERSON LPN - 04/25/2017 16:37 CDT [facility] Document Id: [id number] CDT!11 Miscellaneous - Wali Anderson L.PRodrigueNRodrigue - 04/25/2017 4:36 PM CDT PHQ-9 PHQ-9 Entered On: 04/25/2017 16:37 CDT Performed On: 04/25/2017 16:36 CDT by WALI ANDERSON LPN PHQ-9 Little interest or pleasure in doing things : More than half the days Feeling down, depressed, or hopeless : Nearly every day Trouble falling or staying asleep, or sleeping too much : Nearly every day Feeling tired or having little energy : Nearly every day Poor appetite or overeating : More than half the days Feeling bad about yourself or that you are a failure : Nearly every day Trouble concentrating on things : More than half the days Moving or speaking slowly; restless or fidgety : Not at all Thoughts that you would be better off /hurting self : More than half the days PHQ-9 Calculated Score : 20 Problems make work, home, or dealing with others : Somewhat difficult WALI ANDERSON LPN - 04/25/2017 16:36 CDT Source: [facility] [employer] Document Id: [id number] CDT!13 Miscellaneous - Wali Anderson L.P.N. 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 Intake/History Entered On: 04/25/2017 9:11 CDT Performed On: 04/25/2017 9:07 CDT by WALI ANDERSON LPN Intake Chief Complaint : f/u meds and anxiety Temperature Oral : 36.5 DegC(Converted to: 97.7 DegF) Peripheral Pulse Rate : 72 /min Heart Rhythm : Regular Systolic Blood Pressure : 108 mmHg Diastolic Blood Pressure : 74 mmHg NIBP Mean : 85 mmHg BP Location : Right upper extremity Blood Pressure Cuff Size : Regular Actual Weight : 67.8 kg(Converted to: 149 lb 8 oz) Weight Source : Standing scale Dosing Weight Clinic : 67.8 kg WALI ANDERSON LPN - 04/25/2017 9:07 CDT General Info Information Given By : Patient Preferred Communication Mode : Verbal Languages : Danish Is Patient Female and 13-50 no hysterectomy : Yes Status : Patient denies Are you ? : No WALI ANDERSON LPN - 04/25/2017 9:07 CDT Subjective Pain Symptoms : No WALI ANDERSON LPN - 04/25/2017 9:07 CDT Dependent Habits Exposure to Tobacco Smoke : Other: NEVER Smoking Status : Never smoker Tobacco 2A : No Tobacco Use/Currently Using : No Tobacco Use/Last 30 Days : No Tobacco Use/Last 12 months : No WALI ANDERSON LPN - 04/25/2017 9:07 CDT Caffeine Use Grid Caffeine Use : Current Type : Chocolate, Coffee, Soft drinks Frequency : Daily Amount : pop 2 cans per day WALI ANDERSON LPN - 04/25/2017 9:07 CDT Recreational Drug Use Grid Drug Use : None WALI ANDERSON LPN - 04/25/2017 9:07 CDT [facility]: [facility] Document Id: [id number] CDT!39 documented in this encounter Plan of Treatment Not on filedocumented as of this encounter Visit Diagnoses Not on filedocumented in this encounter Additional Health Concerns Assessment Noted Time PHQ-9 Depression Total Score: 20 04/25/2017 4:36 PM CD T documented as of this encounter Care Teams Biology Intern Relationship Specialty Start Date End Date Alfonso Hill P.A.-C. PCP - General 01/10/17 02/20/18 documented as of this encounter
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
--- OUTSIDE RECORDS SUMMARY | 2022-05-23 11:09 | XMS_ITS | Encounter Summary ---
:1990 Author Organization [facility] Address [address] [place] [address] Care Team Providers Name Role Phone Alfonso Hill P.A.-C. Primary Care Provider Unavailable Encounter Details Date Type Department Care Team Description 07/10/2017 Abstract Department of Neurological Provider, [facility] orical Surgery in [address] [phone] Social History Tobacco Use Types Packs/Day Years [...] do you attend religion or Never 2018 christianity services? 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 PCP - General 01/10/17 02/20/18 documented as of this encounter
--- OUTSIDE RECORDS SUMMARY | 2022-05-23 11:09 | XMS_ITS | Encounter Summary ---
:1990 Author Organization [facility] Address [address] [place] [address] Care Team Providers Name Role Phone Alfonso Hill P.A.-C. Primary Care Provider Unavailable Reason for Visit Reason Comments Diarrhea 5 days, varires 5 to 8 times per Day Vomiting 4 days, none today Nausea 5 days Encounter Details Date Type Department Care Team Description 12/06/2017 Office Visit Urgent Care in [place], Diarrhea (Cari billie Dx) [place], [place], [address] [place] [address] [address] [phone] [place] [phone] Social History Tobacco Use Types Packs/Day Years [...] do you attend buddhism or Never 2018 mu-ism services? 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 - 12/06/2017 12:45 PM CDT SUBJECTIVE Perry Dillard is an 27 y.o. female who presents with symptoms of abdominal pain, cramping, vomiting and diarrhea. Onset 4 days, waxing and waning since that time. She states that on Saturday she only had one bout of diarrhea, which worsened the day after when she had 8 bouts. It was accompanied by occasional vomiting. Pt states that yesterday she felt much better and allowed herself a large meal, which included sugary and fatty foods, which she thinks made her symptoms return the morning after. She describes her diarrhea as watery. Known exposure: nephew with similar symtoms. Pt has had no fever. Patient states that there has been: no travel, recent antibiotics, tainted food, contact with conta gious person, history of GI disease, new medications or change in diet. No known risk factors for parasitic or bacterial infection. No past medical history on file. Past Surgical History: Procedure Laterality Date ??? KNEE ARTHROSCOPY W/ MENISCECTOMY Current Outpatient Prescriptions on File Prior to Visit Medication Sig Dispense Refill ??? LORazepam (ATIVAN) 1 mg tablet Take 1 tablet (1 mg total) by mouth 2 (two) times a day as neededfor anxiety. 30 tablet 0 ??? NAPROXEN SODIUM (ALEVE ORAL) Take by mouth as needed. ??? sertraline (for_ZOLOFT) 100 mg tablet Take 1 tablet by mouth daily. ??? prazosin (for_MINIPRESS) 1 mg capsule Take 1 capsule (1 mg total) by mouth at bedtime. (Patient not taking: Reported on 12/06/2017 ) 30 capsule 1 No current facility-administered medications on file prior to visit. No Known Allergies Social History Substance Use Topics ??? Smoking status: Never Smoker ??? Smokeless tobacco: Never Used ??? Alcohol use 1.2 oz/week 2 Standard drinks or equivalent per week REVIEW OF SYSTEMS Skin: negative Ears/Nose/Throat: negative Respiratory: negative Genitourinary: negative OBJECTIVE BP 115/61 (BP Location: Right arm, Patient Position: Sitting, Cuff Size: Regular) Pulse 82 Temp 36.8 ??C (Oral) Resp 16 Wt 64.1 kg SpO2 100% ? No BMI 22.98 kg/m?? General appearance:healthy, alert, no distress, cooperative Hydration: mildly dehydrated Oropharynx: normal and no erythema or exudates noted. Teeth and gums normal. Neck: small, benign anterior cervical nodes bilaterally Lungs: Lungs clear bilaterally Heart: regular rate and rhythm Abdomen: flat, hyperactive bowel sounds. Tenderness: mild generalized, CVA-Negative Hepatosplenomegaly: absent Rectal: exam deferred No results found for this or any previous visit (from the past 24 hour(s)). ASSESSMENT 1. Diarrhea PLAN 1) Symptomatic treatment. Pt decided to hold GI testing for now. 2) Clear liquids in frequent, small amounts, advance diet as tolerated. 3) Recheck in 2-5 days for persistence, worsening, appearance of new symptoms. PE: Discussed probable viral etiology and principles of dietary treatment. Side effects of the recommended medications discussed. Questions answered. Trevon Cee P.A.-C., P.A. documented in this encounter Plan of Treatment Not on filedocumented as of this encounter Visit Diagnoses Diagnosis Diarrhea - Primary documented in this encounter Additional Health Concerns Assessment Noted Time PHQ-9 Depression Total Score: 10 05/07/2017 1:51 PM CD T documented as of this encounter Care Teams Filter Operator Relationship Specialty Start Date End Date Alfonso Hill P.A.-C. PCP - General 01/10/17 02/20/18 documented as of this encounter
--- OUTSIDE RECORDS SUMMARY | 2022-05-23 11:09 | XMS_ITS | Encounter Summary ---
:1990 Author Organization [facility] Address [address] [place] [address] Care Team Providers Name Role Phone Unavailable Primary Care Provider Unavailable Encounter Details Date Type Department Care Team Description 11/14/2012 Hospital Encounter HX [facility] Juliano Aldana Jr., M.D. [address] [place], [place] [phone] (Wo rk) Social History Tobacco [...] do you attend amish or Never 2018 hinduism services? Do you [...] at Date Recorded Female 08/04/2017 12:14 PM RHIT documented as of this encounter Medications at Time of Discharge Medication Sig Dispensed Refills Start Date End Date NAPROXEN SODIUM (ALEVE Take by mouth as 0 011 05/06/2019 ORAL) needed. documented as of this encounter Plan of Treatment Not on filedocumented as of this encounter Visit Diagnoses Not on filedocumented in this encounter
--- OUTSIDE RECORDS SUMMARY | 2022-05-23 11:09 | XMS_ITS | Encounter Summary ---
:1990 Author Organization [facility] Address [address] [place] [address] Care Team Providers Name Role Phone Alfonso Hill P.A.-C. Primary Care Provider Unavailable Reason for Visit Reason Comments Communication ACT needs update Encounter Details Date Type Department Care Team Description 10/14/2017 Clinical Department of Lorenza Powers Communication (ACT Communication Family Medicine, [address] [place] needs update) [place], [place] in [facility] [phone] [place] [phone] (Work) [place] [address] Social History Tobacco Use Types [...] or relatives? How often do you attend sikhism or Never 2018 hinduism services? 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 If patient call, please transfer to [phone]. documented in this encounter Plan of Treatment Not on filedocumented as of this encounter Visit Diagnoses Not on filedocumented in this encounter Additional Health Concerns Assessment Noted Time PHQ-9 Depression Total Score: 10 05/07/2017 1:51 PM CD T documented as of this encounter Care Teams S3B Multi Sensor Operator Relationship Specialty Start Date End Date Alfonso Hill P.A.-C. PCP - General 01/10/17 02/20/18 documented as of this encounter
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
--- OUTSIDE RECORDS SUMMARY | 2022-05-23 11:10 | XMS_ITS | Encounter Summary ---
:1990 Author Organization [facility] Address [address] [place] [address] Care Team Providers Name Role Phone Unavailable Primary Care Provider Unavailable Encounter Details Date Type Department Care Team Description 07/18/2010 Hospital Encounter [facility]X [facility] Jason Hernandez M.D. [address] [place] [address] Social History Tobacco Use Types Packs/Day [...] or relatives? How often do you attend orthodoxy or Never 2018 church services? 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 - 07/18/2010 12:00 AM CST [id number] HISTORY OF PRESENT ILLNESS An 20-year-old female presents for annual physical exam and healthcare update. The patient is currently a freshman at [employer] where she is taking general classes, not yet committed to what her specialty might be. She wanted to discuss recent interactions with a therapist that she has been seeing regarding her anxiety disorder. She is experiencing greater degrees of social anxiety and subsequent isolation. She now has lost her roommate and is too nervous about accepting a roommate who she does not know. She does live in a dormitory, but it is quite expensive to have her own room there. She did talk about other options for living, but, for the time being, nothing else is going to be acceptable for financial purposes as well as her comfort level in dealing with a stranger. She states her mother does also have an anxiety disorder, and she has been prone toward panic attacks where she has sudden onset of dyspnea and rapid breathing with some chest tightness when thinking about stressful events. She does have some irritable bowel symptoms as well and does admit to a fairly prominent degree of obsessive-compulsive behavior in terms of clinging and checking. We did spend some time talking to her about the diagnosis of generalized anxiety disorder with treatment options. She is not at all interested in cognitive behavioral therapy for several reasons. One is financial, and the second is that she is very mistrusting of therapists in general in terms of trying to retrain her thought process in social interactions. She, otherwise, is really not taking any prescription medicine other than some Flonase nasal spray on an as-needed basis. She stopped her control pill, and her menstrual periods are, for the most part, regular. She is not involved in any relationships at the present time being rather disappointed in her experience with men in the past. I did ask about close friends at the college, and she has not developed any. I encouraged her to try to change that, as I think that will be very helpful in terms of her coping skills to have someone really accessible that she can talk to about stressful events. She admits that she only took 11 credits the first semester trying to warm up to college experience but is going to be taking 16 the next semester. The patient has never been treated for an anxiety disorder but is interested in talking about medications, as her mother is maintained on Prozac, and she would like to try something similar, having done a fair amount of research on the subject. She is interested in a 3rd HPV vaccine but, unfortunately, never received it with her emphasis being on other subjects, but she will pick this up at a followup visit. We did start her on Celexa after a long discussion of risks and benefits and plan to see her back next time she is in town to discuss the response. Hopefully, then we can roll picker the 3rd HPV vaccine. PAST MEDICAL / SURGICAL HISTORY Quite unremarkable. CURRENT MEDICATIONS Flonase nasal spray. ALLERGIES No known drug allergies. FAMILY HISTORY Negative for young adult illnesses other than anxiety disorder. SOCIAL HISTORY HABITS: She is a nonsmoker. Alcohol consumption is very infrequent. SYSTEMS REVIEW Negative for headaches. No chest pain, shortness of breath independent of her panic attacks. No urinary tract or gynecologic concerns. No joint or skin problems. She denies any sexually activity and is not interested in any screening for STDs or gynecologic exam nor any contraception. I did advise her that I would be happy to provide a prescription for contraception should the need arise, and I could call this into a [facility] pharmacy. Otherwise, the review of systems was negative. VITAL SIGNS BLOOD PRESSURE: 126/68 PULSE: 68 TEMP: 36.7 Celsius WEIGHT: 61.3 kg HEIGHT: 163.5 cm PHYSICAL EXAM ENT: TMs and throat are clear. Neck is supple without adenopathy or thyromegaly. BREASTS: No dominant masses. She did ask for a breast exam since she has been nervous about several lumps, which bottom turning lathe turner to be just benign fibrocystic changes. HEART: Regular rate and rhythm without murmur. LUNGS: Clear. ABDOMEN: Soft and nontender. PELVIS: Deferred per patient. EXTREMITIES: No peripheral edema. SKIN: No skin lesions of concern. MENTAL: Stated anxious mood with matching affect. Insight seemed fair. Cognition intact. No sign of drug or alcohol abuse or suicidal ideation. IMPRESSION/REPORT/PLAN 1) Generalized anxiety disorder with irritable bowel symptoms and obsessive-compulsive traits. 2) Otherwise unremarkable preventive care physical. PLAN: The patient did discuss becoming a vegetarian, and we talked about supplementing her diet with appropriate vitamins and iron and trying to get a mix of foods available for vegetarians. We did encourage regular physical activity, and, as mentioned, trying to expand her social life. She was given Celexa 10 mg per day, but she will probably start by breaking this in half for a week or two to make sure she does not have a lot of side effects, as anxiety patients are prone to. I did give her my personal pager number to contact me for concerns regarding use of this medication or other problems that might arise at college and hope to see her back for a recheck when she returns to [facility] [employer]. Tanmay Hernandez M.D. agb Electronically Signed By:TANMAY HERNANDEZ MD On 07/28/2010 09:59 AM Source: [facility] MHSDOLBEYNONRADSYS Document Id: [id number] TABOUT CREW PUSHER documented in this encounter Miscellaneous Notes Miscellaneous - Jaylon Reeves R.N. 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 Intake/History Adult [employer] Floorperson Intake/History Entered On: 07/18/2010 14:24 ROUSTABOUT CREW PUSHER Performed On: 07/18/2010 14:21 ROUSTABOUT CREW PUSHER by JAYLON REEVES Intake Chief Complaint: ANNUAL PHYSICAL - HAVING LOTS OF ANXIETY ISSUES Temperature Oral: 36.7C(Converted to: 98.1DegF) Peripheral Pulse Rate: 68/min Respiratory Rate: 16/min Systolic Blood Pressure: 126mmHg Diastolic Blood Pressure: 68mmHg NIBP Mean: 87mmHg BP Location: Right upper extremity Heart Rhythm: Regular Height: 163.50cm(Converted to: 5ft 4in, 64.37in) Actual Weight: 61.300kg(Converted to: 135lb 2oz) Dosing Weight Clinic: 61.30kg Clinic BSA: 1.67 Body Mass Index: 23kg/m2 JAYLON REEVES - 07/18/2010 14:21 ROUSTABOUT CREW PUSHER General Info Information Given By: Patient Preferred Communication Mode: Verbal Languages: Hebrew JAYLON REEVES - 07/18/2010 14:21 ROUSTABOUT CREW PUSHER Subjective Pain Symptoms: No JAYLON REEVES - 07/18/2010 14:21 ROUSTABOUT CREW PUSHER Dependent Habits Tobacco Use/Currently Using: No Exposure to Tobacco Smoke: Other: NEVER Alcohol Use: Yes (Comment: ONCE IN A WHILE [JAYLON REEVES - 07/18/2010 14:21 ROUSTABOUT CREW PUSHER] ) JAYLON REEVES - 07/18/2010 14:21 ROUSTABOUT CREW PUSHER Caffeine Use Grid Caffeine Use: Current Type: Chocolate, Coffee, Soft drinks Frequency: Daily JAYLON REEVES - 07/18/2010 14:21 ROUSTABOUT CREW PUSHER Allergies Allergies (Active) NKA Estimated Onset Date: Unspecified ; Created By: KIRSTEN SILVERIO; Reaction Status: Active ; Category: Drug ; Substance: NKA ; Type: Allergy ; Updated By: KIRSTEN SILVERIO; Reviewed Date: 07/18/2010 14:21CST [facility]: [id number] ROUSTABOUT CREW PUSHER!31 TABOUT CREW PUSHER documented in this encounter Plan of Treatment Not on filedocumented as of this encounter Visit Diagnoses Not on filedocumented in this encounter
--- OUTSIDE RECORDS SUMMARY | 2022-05-23 11:10 | XMS_ITS | Encounter Summary ---
:1990 Author Organization [facility] Address [address] [place] [address] Care Team Providers Name Role Phone Unavailable Primary Care Provider Unavailable Encounter Details Date Type Department Care Team Description 03/21/2012 Hospital Encounter HX [facility] Jason Hernandez M.D. [address] [place] [address] Social History Tobacco Use Types Packs/Day [...] do you attend hindu or Never 2018 islam services? 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 documented as of this encounter Progress Notes Tanmay Hernandez M.D. - 03/21/2012 12:00 AM CDT [id number] CHIEF COMPLAINT/REASON FOR VISIT Ankle injury HISTORY OF PRESENT ILLNESS 22-year-old female sustained an ankle injury on March 09. We had an MRI showing extensive ligamentous injury and she has been in a walking boot since. She wore crutches for about a week thereafter but has come out of them since, feeling the crutches were more dangerous than they were worth for benefits. She is with her significant other today who states that she has kept her Kristopher boot on almost continuously. At this juncture, however we will allow her to take it off at nighttime when she is at home and sleeping as it is quite cumbersome for her. The pain has decreased dramatically and she seems to be doing very well. CURRENT MEDICATIONS Reviewed EMR dated 03/21/2012. ALLERGIES None VITAL SIGNS TEMPERATURE: 37.1 degrees Celsius PULSE: 68 BLOOD PRESSURE: 98/62 WEIGHT: 63.9 kg PHYSICAL EXAM Patient walks with more of a normal gait. LEFT ANKLE: She still has some ecchymosis and edema in the dorsal forefoot area although for the most part this has gone down dramatically. She is very tender over the lateral malleolus, although the swelling is very much diminished. The medial malleolus is nontender. No Achilles tenderness. IMPRESSION/REPORT/PLAN Multiple ligamentous injuries to the left ankle from recent severe sprain. PLAN: Patient will stay in a [place] boot while walking for another 2 weeks but come out of it at nighttime when she is home and while she is sleeping. At that juncture she will come out of the boot entirely and begin increasing range of motion and activity and if she has problems we would be happy to refer her to Physical Therapy for direction. Follow up sooner for problems. Tanmay Hernandez M.D. jmw Electronically Signed By: TANMAY HERNANDEZ MD On: 03/25/2012 06:09 PM Source: [facility] MHSDOLBEYNONRADSYS Document Id: [id number] documented in this encounter Miscellaneous Notes Miscellaneous - Tanmay Hernandez M.D. - 03/22/2012 8:21 PM CDT Ambulatory Patient Summary [address] [id number] Visit Information Name: VALERI DILLARD Current Date: 03/22/2012 20:21:07 Physicians Attending Provider: TANMAY HERNANDEZ MD Primary Care Provider: TANMAY HERNANDEZ MD Your Medications Here is a list of your medications. It is important to take your medications as directed. Use a pillbox or chart to help remind you to take your medications. Please let your doctor or nurse know if you have problems taking your medications. Medication/Strength Dose Route Frequency Indications/Special Instructions/Comments norgestimate-ethinyl estradiol (Sprintec 0.25 mg-35 mcg oral tablet) 1 tab(s) Oral once a day fluconazole (fluconazole 150 mg oral tablet) 150 mg Oral once Repeat one more dose in one week fluticasone nasal (Flonase) 2 spray(s) Nostrils(Both) once a day naproxen (Aleve) Oral as needed Attention: If you have any medications at home that are not on this list, DO NOT take them until youcontact your provider for clarification. Your Allergies & Intolerances Substance Reaction Symptoms Category Comments No Known Allergies Drug Your Problem List Problem Status Onset Comments Rhinitis, Allergic Active 11/08/2011 Your Upcoming Appointments Date Time Location Reason Provider No Appointments found Your Goals/Additional instructions: Source: [facility] POWERCHART Document Id: [id number] Miscellaneous - Tanmay Hernandez M.D. - 03/22/2012 8:21 PM CDT Ambulatory Depart Summary [facility] [address] [place] [address] Visit Information Name: VALERI DILLARD Visit Date: 03/22/2012 20:21:06 Attending Provider: TANMAY HERNANDEZ MD Primary Care [...] medications. Medication/Strength Dose Route Frequency Indications/Special Instructions/Comments norgestimate-ethinyl estradiol (Sprintec 0.25 mg-35 mcg oral tablet) 1 tab(s) Oral once a day fluconazole (fluconazole 150 mg oral tablet) 150 mg Oral once Repeat one more dose in one week fluticasone nasal (Flonase) 2 spray(s) Nostrils(Both) once a day naproxen (Aleve) Oral as needed Attention: If you have any medications at home that are not on this list, DO NOT take them until youcontact your provider for clarification. Additional Information: Source: [facility] Document Id: [id number] Miscellaneous - Tanmay Hernandez M.D. - 03/21/2012 2:49 PM CDT School or Work Excuse School or Work Excuse Entered On: 03/21/2012 14:49 CDT Performed On: 03/21/2012 14:49 CDT by TANMAY HERNANDEZ MD School or Work Excuse Date Patient Seen : 03/21/2012 CDT Comment : No work until 8 Sept due to ankle injury TANMAY HERNANDEZ MD - 03/21/2012 14:49 CDT Source: [facility] [place] Document Id: [id number] Miscellaneous - Jaylon Reeves R.N. 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 Intake/History Entered On: 03/21/2012 14:10 CDT Performed On: 03/21/2012 14:08 CDT by JAYLON REEVES Intake Chief Complaint : RECHECK ON LEFT ANKLE FROM 03-09-12 Temperature Oral : 37.1C(Converted to: 98.8DegF) Peripheral Pulse Rate : 68/min Heart Rhythm : Regular Systolic Blood Pressure : 98mmHg Diastolic Blood Pressure : 62mmHg NIBP Mean : 74mmHg BP Location : Right upper extremity Blood Pressure Cuff Size : Regular Actual Weight : 63.9kg(Converted to: 140lb 14oz) Dosing Weight Clinic : 63.90kg JAYLON REEVES - 03/21/2012 14:08 CDT General Info Information Given By : Patient Preferred Communication Mode : Verbal Languages : [place] JAYLON REEVES - 03/21/2012 14:08 CDT Subjective Pain Symptoms : No JAYLON REEVES - 03/21/2012 14:08 CDT Dependent Habits Tobacco Use/Currently Using : No Exposure to Tobacco Smoke : Other: NEVER Smoking Status : Never smoker JAYLON REEVES - 03/21/2012 14:08 CDT Caffeine Use Grid Caffeine Use : Current Type : Chocolate, Coffee, Soft drinks Frequency : Daily JAYLON REEVES - 03/21/2012 14:08 CDT Recreational Drug Use Grid Drug Use : None JAYLON REEVES - 03/21/2012 14:08 CDT Allergy Allergies (Active) NKA Estimated Onset Date: Unspecified ; Created By: KIRSTEN SILVERIO; Reaction Status: Active ; Category: Drug ; Substance: NKA ; Type: Allergy ; Updated By: KIRSTEN SILVERIO; Reviewed Date: 03/21/2012 14:08CDT Source: [facility] POWERCHART Document Id: [id number] documented in this encounter Plan of Treatment Not on filedocumented as of this encounter Visit Diagnoses Not on filedocumented in this encounter
--- OUTSIDE RECORDS SUMMARY | 2022-05-23 11:10 | XMS_ITS | Encounter Summary ---
:1990 Author Organization [facility] Address [address] [place] [address] Care Team Providers Name Role Phone Unavailable Primary Care Provider Unavailable Encounter Details Date Type Department Care Team Description 11/27/2011 Hospital Encounter [facility]X [facility] Nik Turk M.D. [address] [place], [place] [phone] (Wo rk) Social History [...] or relatives? How often do you attend oriental orthodox or Never 2018 pentecostalism services? 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 documented as of this encounter Progress Notes Anaid Ramirez M.D. - 11/27/2011 12:00 AM CDT [id number] CHIEF COMPLAINT / REASON FOR VISIT Dyspareunia. HISTORY OF PRESENT ILLNESS Valeri is a 21-year-old patient who is here for evaluation of dyspareunia. She thinks that she may be allergic to her boyfriend's semen. They have attempted various forms of intercourse and she explains that she has a very significant pain after intercourse unless they use a condom. No fevers or chills. No STD contacts. PHYSICAL EXAM GENERAL: Female of stated age, in no acute distress. PELVIS: External genitalia, Bartholin, urethral, Vona glands normal. The posterior perineum is tense and the levator muscles are extremely tight and possibly in spasm. Uterus is small, midplane, mobile, and nontender to palpation. Adnexa is negative for mass or tenderness. Wet prep reveals the presence of yeast vaginitis. IMPRESSION / REPORT / PLAN [facility] to [facility] for treatment of yeast vaginitis. I have also ordered a urinalysis and will contact Valeri with the results of that test regarding the muscle spasm. She will be more self aware about whether this is a contributing factor for dyspareunia and after treatment of the yeast infection we will have her return in 2 weeks for ongoing care. Soraya Benitez Electronically Signed By: ANAID RAMIREZ MD On: 11/29/2011 11:03 AM Source: [facility] MHSDOLBEYNONRADSYS Document Id: [id number] documented in this encounter Miscellaneous Notes Miscellaneous - Anaid Ramirez M.D. - 11/28/2011 11:12 AM CDT Ambulatory Depart Summary [facility] [address] [place] [id number] Visit Information Name: VALERI DILLARD Visit Date: 11/28/2011 11:12:15 Attending Provider: ANAID RAMIREZ MD Primary Care Provider: TANMAY CHUA MD VALERI DILLARD has been given the following list of medications: Your Medications It is important to take your medications as directed. Use a pill box or chart to help remind you to take your medications. Please let your doctor or nurse know if you have problems taking your medications. Medication/Strength Dose Route Frequency Indications/Special Instructions/Comments fluconazole (fluconazole 150 mg oral tablet) 150 mg Oral once Repeat one more dose in one week drospirenone-ethinyl estradiol (Ocella 3 mg-0.03 mg oral tablet) 1 tab(s) Oral once a day fluticasone nasal (Flonase) 2 spray(s) Nostrils(Both) once a day naproxen (Aleve) Oral as needed Attention: If you have any medications at home that are not on this list, DO NOT take them until youcontact your provider for clarification. Additional Information: Source: [facility] POWERCHART Document Id: [id number] Carmenzacellaneous - Anaid Ramirez M.D. - 11/28/2011 11:12 AM CDT Ambulatory Patient Summary [facility] [address] [place] [id number] Visit Information Name: VALERI DILLARD Current Date: 11/28/2011 11:12:16 Physicians Attending Provider: ANAID RAMIREZ MD Primary Care Provider: TANMAY CHUA MD Your Medications Here is a list of your medications. It is important to take your medications as directed. Use a pillbox or chart to help remind you to take your medications. Please let your doctor or nurse know if you have problems taking your medications. Medication/Strength Dose Route Frequency Indications/Special Instructions/Comments fluconazole (fluconazole 150 mg oral tablet) 150 mg Oral once Repeat one more dose in one week drospirenone-ethinyl estradiol (Ocella 3 mg-0.03 mg oral tablet) 1 tab(s) Oral once a [...] Upcoming Appointments Date Time Location Reason Provider 12/11/2011 15:00 [facility] FINANCE MANAGER juan j Ramirez MD, Anaid Zhou Your Goals/Additional instructions: Source: [facility] POWERCHART Document Id: [id number] Miscellaneous - Rich Jaimes L.P.NRodrigue - 11/27/2011 2:50 PM CDT Adult Plumbing Technician Intake/History Adult Plumbing Technician Intake/History Entered On: 11/27/2011 14:52 CDT Performed On: 11/27/2011 14:50 CDT by RICH JAIMES Intake Chief Complaint : consult for painful intercourse Systolic Blood Pressure : 120mmHg Diastolic Blood Pressure : 62mmHg NIBP Mean : 81mmHg RICH JAIMES - 11/27/2011 14:50 CDT Subjective Pain Symptoms : No RICH JAIMES - 11/27/2011 14:50 CDT Dependent Habits Tobacco Use/Currently Using : No Exposure to Tobacco Smoke : Other: NEVER Smoking Status : Never smoker RICH JAIMES - 11/27/2011 14:50 CDT Caffeine Use Grid Caffeine Use : Current Type : Chocolate, Coffee, Soft drinks Frequency : Daily RICH JAIMES - 11/27/2011 14:50 CDT Recreational Drug Use Grid Drug Use : None RICH JAIMES - 11/27/2011 14:50 CDT Allergy Allergies (Active) NKA Estimated Onset Date: Unspecified ; Created By: KIRSTEN SILVERIO; Reaction Status: Active ; Category: Drug ; Substance: NKA ; Type: Allergy ; Updated By: KIRSTEN SILVERIO; Reviewed Date: 11/27/2011 14:50CDT Source: [facility] POWERCHART Document Id: [id number] documented in this encounter Plan of Treatment Not on filedocumented as of this encounter Procedures Procedure Name Priority Date/Time Associated Comments Diagnosis URINALYSIS WITH Routine 11/27/2011 3:43 PM Result s for this MICROSCOPIC CDT procedure are i n the results section. documented in this encounter Results (ABNORMAL) Urinalysis, Complete, Includes Microscopic (11/27/2011 3:43 PM CDT) [facility] Method Time Signature Source Clean Void POWERCHART Urine HXUr Color YELLOW YELLOW POWERCHART Glucose Negative Negative POWERCHART HXBILIRUBIN Negative Negative POWERCHART Ketones, QL(U) Negative Negative POWERCHART Specific >=1.030 >=1.030 POWERCHART [place], POCT, U pH, POCT, Urine 6.0 8.5 POWERCHART Protein, Ur, Dip 100 (A) Negative POWERCHART Urobilinogen 0.2 1.0 POWERCHART HXNITRITE Negative Negative POWERCHART HXBLOOD Negative Negative POWERCHART Leukocyte Negative Negative POWERCHART Esterase HXUr WBC 0-5 0 - 5 POWERCHART Red Blood Cell 0-3 0 - 3 POWERCHART Clump, Urine HXUr Bacteria Few (A) Negative POWERCHART HXUr Epithelial Many Negative POWERCHART HX MUCOUS Small Negative POWERCHART THREADS HX Ur Casts None Seen None Seen POWERCHART Crystals None Seen None Seen POWERCHART Specimen (Source) Anatomical Collection Method Collection Time Re ceived Time Location / / Volume Laterality Urine 11/27/2011 3:43 PM CDT Anaid Ramirez M.D. LAB URINE ORDERABLES Performing Organization Address City/State/ZIP Code Phon e Number POWERCHART documented in this encounter Visit Diagnoses Not on filedocumented in this encounter
--- OUTSIDE RECORDS SUMMARY | 2022-05-23 11:10 | XMS_ITS | Encounter Summary ---
:1990 Author Organization [facility] Address [address] [place] [address] Care Team Providers Name Role Phone Unavailable Primary Care Provider Unavailable Encounter Details Date Type Department Care Team Description 08/22/2011 Hospital Encounter [facility] Jason Hernandez M.D. [address] [place] [address] Social History Tobacco Use Types Packs/Day [...] or relatives? How often do you attend jehovah's witness or Never 2018 shinto services? 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 documented as of this encounter Plan of Treatment Not on filedocumented as of this encounter Procedures Procedure Name Priority Date/Time Associated Diagnosis Comme nts C TRACH RNA SRC Routine 08/22/2011 3:23 PM Result s for this FULL STACK ENGINEER procedure are i n the results section. C TRACH RNA Routine 08/22/2011 3:23 PM Results f or this FULL STACK ENGINEER procedure are i n the results section. TEST, U Routine 08/22/2011 3:23 PM Resu lts for this FULL STACK ENGINEER procedure are i n the results section. documented in this encounter Results HX-C Trach RNA (08/22/2011 3:23 PM FULL STACK ENGINEER) [facility] gist Method Time Signature Chlamydia Negative POWERCHART trachomatis amplified RNA Specimen (Source) Anatomical Collection Method Collection Time Re ceived Time Location / / Volume Laterality 08/22/2011 3:23 PM FULL STACK ENGINEER Narrative POWERCHART - 08/24/2011 2:45 PM FULL STACK ENGINEER Test Performed by: [place] [address] Ornamental Machine Operator: Liseth Brock, Ph. D. Jonatan Hernandez M.D. LAB HISTORICAL ORDERS Performing Organization Address City/State/ZIP Code Phon e Number POWERCHART HX-C Trach RNA Src (08/22/2011 3:23 PM FULL STACK ENGINEER) P athologist Signature Specimen URINE POWERCHART Specimen (Source) Anatomical Collection Method Collection Time Re ceived Time Location / / Volume Laterality 08/22/2011 3:23 PM FULL STACK ENGINEER Jonatan Hernandez M.D. LAB HISTORICAL ORDERS Performing Organization Address City/State/ZIP Code Phon e Number POWERCHART Test, Qualitative, Urine (08/22/2011 3:23 PM FULL STACK ENGINEER) [facility] gist Method Time Signature HXBeta-hCG Negative POWERCHART Qualitative Urine Specimen (Source) Anatomical Collection Method Collection Time Re ceived Time Location / / Volume Laterality Urine 08/22/2011 3:23 PM FULL STACK ENGINEER Jonatan Hernandez M.D. LAB URINE ORDERABLES Performing Organization Address City/State/ZIP Code Phon e Number POWERCHART documented in this encounter Visit Diagnoses Not on filedocumented in this encounter
--- OUTSIDE RECORDS SUMMARY | 2022-05-23 11:10 | XMS_ITS | Encounter Summary ---
:[address] [facility] Address [address] [place] [address] Care Team Providers Name Role Phone Unavailable Primary Care Provider Unavailable Encounter Details Date Type Department Care Team Description 11/06/2011 Hospital Encounter [facility] Jason Hernandez M.D. [address] [place] [address] Social History Tobacco Use Types Packs/Day [...] do you attend tenriism or Never 2018 taoism services? 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 documented as of this encounter Progress Notes Tanmay Hernandez M.D. - 11/06/2011 12:00 AM CDT [id number] CHIEF COMPLAINT/REASON FOR VISIT Menstrual irregularity HISTORY OF PRESENT ILLNESS 21-year-old female presents with her significant other with concern for adverse reaction to Depo-Provera. Her first injection was August 22 of this year and she has bled almost continually ever since, pretty much a daily basis. She is quite frustrated with that with no intention to pursue any progesterone form of control; instead she would like to get back on control pills. Previously she had trouble remembering the pill, but now she is motivated with the awful 3 months she has suffered with daily bleeding. She also mentions that she has had some dry skin in the left upper medial eyelid and she does have a thickened area with some central clearing with raised border that is scaly. This looks to be a dermatitis; although, there could be some concern about a tinea infection, although it would be quite unusual in this location. We did give the patient is some Westcort cream to apply carefully just to the area involved for no more than several days to weeks. We did warn her about side effects of more prolonged use, which is definitely to be avoided. The patient was warned that if this is a fungal component it will get worse rather quickly and she is to stop the medicine and call us immediately. She certainly if invited to see our Ophthalmology staff or Dermatology staff if preferred. She has been trying moisturizers without any improvement and has no rash elsewhere her body. MEDICATIONS None. ALLERGIES None. VITAL SIGNS TEMPERATURE: 36.4 Celsius PULSE: 68 BLOOD PRESSURE: 126/80 WEIGHT: 63 kg. PHYSICAL EXAM The left medial region above her left eye has this serpiginous-type circular area with central clearing and a raised scaly outer border of about 1 cm in diameter; although, the edges are far from being perfectly circular, the remainder of facial skin exam was unremarkable. ABDOMEN: Soft, nontender IMPRESSION/REPORT/PLAN 1) Facial dermatitis. 2) Depo-Provera adverse side effect. Plan is to place her on Ocella control pills after discussing pros and cons of various agents available including warning her about increased risk of blood clots with the Ocella compared some other options, albeit by a small quantity. She is a nonsmoker and so I think reasonable to use this medication; otherwise, she will follow up per instructions for the facial rash and for annual exams when due. Tanmay Hernandez M.D. klj Electronically Signed By: TANMAY HERNANDEZ MD On: 11/09/2011 07:39 AM Source: [facility] MHSDOLBEYNONRADSYS Document Id: [id number] documented in this encounter Miscellaneous Notes Miscellaneous - Tanmay Hernandez M.D. - 11/08/2011 11:57 PM CDT Ambulatory Patient Summary [address] [address] Visit Information Name: VALERI DILLARD Current Date: 11/08/2011 23:57:15 Physicians Attending Provider: TANMAY HERNANDEZ MD Primary Care Provider: TANMAY HERNANDEZ MD Your Medications Here is a list of your medications. It is important to take your medications as directed. Use a pillbox or chart to help remind you to take your medications. Please let your doctor or nurse know if you have problems taking your medications. Medication/Strength Dose Route Frequency Indications/Special Instructions/Comments drospirenone-ethinyl estradiol (Ocella 3 mg-0.03 mg oral tablet) 1 tab(s) Oral once a day hydrocortisone topical (Westcort 0.2% topical cream) 1 ayan Topical two times a day fluticasone nasal (Flonase) 2 spray(s) [...] No Appointments found Your Goals/Additional instructions: Source: [facility] CONSTRVCT Document Id: [id number] Daina - Tanmay Hernandez M.D. - 11/08/2011 11:57 PM CDT Ambulatory Depart Summary [facility] [address] [place] [address] Visit Information Name: VALERI DILLARD Visit Date: 11/08/2011 23:57:14 Attending Provider: TANMAY HERNANDEZ MD Primary Care [...] medications. Medication/Strength Dose Route Frequency Indications/Special Instructions/Comments drospirenone-ethinyl estradiol (Ocella 3 mg-0.03 mg oral tablet) 1 tab(s) Oral once a day hydrocortisone topical (Westcort 0.2% topical cream) 1 ayan Topical two times a day fluticasone nasal (Flonase) 2 spray(s) Nostrils(Both) once a day naproxen (Aleve) Oral as needed Attention: If you have any medications at home that are not on this list, DO NOT take them until youcontact your provider for clarification. Additional Information: Source: [facility] [employer] Document Id: [id number] Daina - Jaylon Reeves R.N. - 11/06/2011 2:43 PM CDT Adult Director Of Preclinical Research Intake/History Adult Director Of Preclinical Research Intake/History Entered On: 11/06/2011 14:46 CDT Performed On: 11/06/2011 14:43 CDT by JAYLON REEVES Intake Chief Complaint : PROBLEMS WITH DEPO SHOT - HAD 1ST SHOT ON 08-22-11, HAS HAD PERIOD OR SPOTTED EVER SINCE. DISCUSS OTHER BC OPTIONS. WAS ON THE PILL LONG AGO. LMP Date : 08-29-2011 Temperature Oral : 36.4C(Converted to: 97.5DegF) Peripheral Pulse Rate : 68/min Heart Rhythm : Regular Systolic Blood Pressure : 126mmHg Diastolic Blood Pressure : 60mmHg NIBP Mean : 82mmHg BP Location : Right upper extremity Blood Pressure Cuff Size : Regular Actual Weight : 63.9kg(Converted to: 140lb 14oz) Dosing Weight Clinic : 63.90kg JAYLON REEVES - 11/06/2011 14:43 CDT General Info Information Given By : Patient Preferred Communication Mode : Verbal Languages : Occitan JAYLON REEVES - 11/06/2011 14:43 CDT Subjective Pain Symptoms : No JAYLON REEVES - 11/06/2011 14:43 CDT Dependent Habits Tobacco Use/Currently Using : No Exposure to Tobacco Smoke : Other: NEVER Smoking Status : Never smoker JAYLON REEVES - 11/06/2011 14:43 CDT Caffeine Use Grid Caffeine Use : Current Type : Chocolate, Coffee, Soft drinks Frequency : Daily JAYLON REEVES - 11/06/2011 14:43 CDT Recreational Drug Use Grid Drug Use : None JAYLON REEVES - 11/06/2011 14:43 CDT Allergy Allergies (Active) NKA Estimated Onset Date: Unspecified ; Created By: KIRSTEN SILVERIO; Reaction Status: Active ; Category: Drug ; Substance: NKA ; Type: Allergy ; Updated By: KIRSTEN SILVERIO; Reviewed Date: 11/06/2011 14:43CDT Source: [facility] CONSTRVCT Document Id: [id number] CDT!32 documented in this encounter Plan of Treatment Not on filedocumented as of this encounter Visit Diagnoses Not on filedocumented in this encounter
--- OUTSIDE RECORDS SUMMARY | 2022-05-23 11:10 | XMS_ITS | Encounter Summary ---
:1990 Author Organization [facility] Address [address] [place] [address] Care Team Providers Name Role Phone Unavailable Primary Care Provider Unavailable Encounter Details Date Type Department Care Team Description 12/11/2011 Hospital Encounter [facility] Nik Turk M.D. [address] [place], [place] [phone] (Wo rk) Social History [...] or relatives? How often do you attend mandaen or Never 2018 quaker services? 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 - 12/11/2011 12:00 AM CDT [id number] CHIEF COMPLAINT / REASON FOR VISIT Valeri is a 21-year-old patient who is known to me from a previous visit 2 weeks ago. She was experiencing some dyspareunia and had questions about allergic reaction to semen. She had been treated for yeast vaginitis at that time and is returning now after several of our discussions. She and her significant other are now certain that they feel the problem with painful intercourse is what we had discussed previously which is a transverse perineal muscle which is in spasm. Valeri is able to palpate that muscle and feels that is where the tenderness is coming from and it is difficult for her to relax this. There are no current signs of yeast vaginitis however. PHYSICAL EXAM Deferred per patient request. Valeri is currently menstruating. IMPRESSION / REPORT / PLAN 21-year-old with mild transverse perineal muscle spasm leading to dyspareunia. I have given Valeri a set of vaginal dilators with instructions for their use. We have discussed the natural history of muscle spasm and particularly the location of the muscle that is tender is obvious to her at present. She will continue to use the dilators and follow up on an as-needed basis. Soraya Benitez Electronically Signed By: ANAID RAMIREZ MD On: 12/13/2011 08:15 AM Source: [facility] MHSDOLBEYNONRADSYS Document Id: [id number] documented in this encounter Miscellaneous Notes Miscellaneous - Anaid Ramirez M.D. - 12/12/2011 11:38 AM CDT Ambulatory Patient Summary [facility] [address] [place] [id number] Visit Information Name: VALERI DILLARD Current Date: 12/12/2011 11:38:00 Physicians Attending Provider: ANAID RAMIREZ MD Primary [...] No Appointments found Your Goals/Additional instructions: Source: [facility] POWERCHART Document Id: [id number] Miscellaneous - Anaid Ramirez M.D. - 12/12/2011 11:37 AM CDT Ambulatory Depart Summary [facility] [address] [place] [id number] Visit Information Name: VALERI DILLARD Visit Date: 12/12/2011 11:37:59 Attending Provider: ANAID RAMIREZ MD Primary Care Provider: TANMAY CHUA MD VALERI DILLARD RIVERA has been given [...] your provider for clarification. Additional Information: Source: [facility] POWERCHART Document Id: [id number] Miscellaneous - Conversion, Historical Provider Ser - 12/11/2011 3:10 PM CDT Adult Realtime Reporter Intake/History Adult Realtime Reporter Intake/History Entered On: 12/11/2011 15:12 CDT Performed On: 12/11/2011 15:10 CDT by CARINA CARPENTER Intake Chief Complaint : Recheck. Some better Systolic Blood Pressure : 108mmHg Diastolic Blood Pressure : 62mmHg NIBP Mean : 77mmHg BP Location : Left upper extremity Blood Pressure Cuff Size : Regular CARINA CARPENTER - 12/11/2011 15:10 CDT Subjective Pain Symptoms : No CARINA CARPENTER - 12/11/2011 15:10 CDT Dependent Habits Tobacco Use/Currently Using : No Exposure to Tobacco Smoke : Other: NEVER Smoking Status : Never smoker CARINA CARPENTER - 12/11/2011 15:10 CDT Caffeine Use Grid Caffeine Use : Current Type : Chocolate, Coffee, Soft drinks Frequency : Daily CARINA CARPENTER - 12/11/2011 15:10 CDT Recreational Drug Use Grid Drug Use : None CARINA CARPENTER - 12/11/2011 15:10 CDT Allergy Allergies (Active) NKA Estimated Onset Date: Unspecified ; Created By: KIRSTEN SILVERIO; Reaction Status: Active ; Category: Drug ; Substance: NKA ; Type: Allergy ; Updated By: KIRSTEN SILVERIO; Reviewed Date: 12/11/2011 15:10CDT Source: [facility] [employer] Document Id: [id number] CDT!22 documented in this encounter Plan of Treatment Not on filedocumented as of this encounter Visit Diagnoses Not on filedocumented in this encounter
--- OUTSIDE RECORDS SUMMARY | 2022-05-23 11:10 | XMS_ITS | Encounter Summary ---
:1990 Author Organization [facility] Address [address] [place] [address] Care Team Providers Name Role Phone Unavailable Primary Care Provider Unavailable Encounter Details Date Type Department Care Team Description 02/09/2011 Hospital Encounter [facility] Bob Wilkins M.D. [address] [place], [place] [address] (Wo rk) Social History Tobacco Use Types [...] or relatives? How often do you attend judaism or Never 2018 sabianist services? 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 documented as of this encounter Progress Notes Jayleen Wilkins M.D. - 02/09/2011 12:00 AM CDT [id number] CHIEF COMPLAINT / REASON FOR VISIT Acute pharyngitis. HISTORY OF PRESENT ILLNESS Perry is a 21-year-old female, patient of Dr. Jonatan Hernandez, who, in the past 2 days has developed a significant tonsillitis, a great deal of tiredness, low-grade fevers and some posterior neck tenderness. She has had some nausea and vomited. VITALS SIGNS Please see EMR. PHYSICAL EXAM GENERAL: Moderately ill-appearing young woman. Appropriate and interactive. HEENT: TMs are negative. Oropharynx with marked tonsillitis. No significant stricture of the oropharynx. Purulent pockets are noted in the crypts of the tonsils. Posterior lymphadenopathy is present. ABDOMEN: Some mild tenderness in the upper abdomen, but she has a hard time the nausea from tenderness. I do not feel any hepatosplenomegaly. IMPRESSION / REPORT / PLAN DIAGNOSTICS: Rapid strep test is negative. 1) Acute tonsillitis, possible mono. We talked about doing laboratory studies today. However, the monospot is not reliably positive for 4 days of symptoms and she has a great fear of needles. Since it would not make a difference in her treatment at this point she would rather wait for the throat culture to return on the outside chance that it actually strep and it is a negative rapid strep. This certainly is an appropriate approach. Therefore, we will allow the throat culture to be grown over the weekend. If on Saturday, however, it is negative and she is still having acute pharyngitis I did recommend she see Dr. Jonatan Hernandez and consider doing a monospot and CBC. In the meantime, the literature does state that prednisone can be helpful both for acute pharyngitis for pain control, as well as over the course of mono. Therefore, we will use prednisone 20 mg 2 tablets daily for a 5 day burst. Mother is on prednisone for her rheumatoid arthritis and she is well aware and she is very much in favor of using it with her daughter. Side effects discussed. Follow-up on Saturday should she still be having difficulties and the throat culture is negative. She will need to be treated if the throat culture returns positive. We will not treat her expectantly since penicillin can give her a rash if this is mono. All questions answered. Jayleen Wilkins M.D. srw Electronically Signed By: JAYLEEN WILKINS MD On: 02/12/2011 11:01 AM Source: [facility] MHSDOLBEYNONRADSYS Document Id: [id number] documented in this encounter Procedure Notes Conversion, Historical Provider Ser - 02/09/2011 1:35 PM CDT Rapid Strep A Screen POC Rapid Strep A Screen POC Entered On: 02/09/2011 13:36 CDT Performed On: 02/09/2011 13:35 CDT by VARINDER MCLAUGHLIN Rapid Strep A Screen POC Rapid Strep A Screen POC: Negative Internal QC: Pass VARINDER MCLAUGHLIN - 02/09/2011 13:35 CDT Source: [facility] POWERCHART Document Id: [id number] CDT!4 documented in this encounter Miscellaneous Notes Miscellaneous - Conversion, Historical Provider Ser - 02/09/2011 1:24 PM CDT Adult Taker Off Hemp Fiber Intake/History Adult Taker Off Hemp Fiber Intake/History Entered On: 02/09/2011 13:26 CDT Performed On: 02/09/2011 13:24 CDT by VARINDER MCLAUGHLIN Intake Chief Complaint: H/A, vomiting and fever, S/T Onset of Symptoms: Last night Temperature Oral: 37.6C(Converted to: 99.7DegF) (HI) Peripheral Pulse Rate: 88/min Respiratory Rate: 16/min Systolic Blood Pressure: 110mmHg Diastolic Blood Pressure: 72mmHg NIBP Mean: 85mmHg BP Location: Right upper extremity Heart Rhythm: Regular Actual Weight: 63.800kg(Converted to: 140lb 10oz) Weight Source: Standing scale Dosing Weight Clinic: 63.80kg VARINDER MCLAUGHLIN 02/09/2011 13:24 CDT Subjective Pain Symptoms: No VARINDER MCLAUGHLIN 02/09/2011 13:24 CDT Dependent Habits Tobacco Use/Currently Using: No Exposure to Tobacco Smoke: Other: NEVER VARINDER MCLAUGHLIN 02/09/2011 13:24 CDT Caffeine Use Grid Caffeine Use: Current Type: Chocolate, Coffee, Soft drinks Frequency: Daily VARINDER MCLAUGHLIN 02/09/2011 13:24 CDT Recreational Drug Use Grid Drug Use: None VARINDER MCLAUGHLIN 02/09/2011 13:24 CDT Allergy Allergies (Active) NKA Estimated Onset Date: Unspecified ; Created By: KIRSTEN SILVERIO; Reaction Status: Active ; Category: Drug ; Substance: NKA ; Type: Allergy ; Updated By: KIRSTEN SILVERIO; Reviewed Date: 02/09/2011 13:11CDT Source: [facility] [employer] Document Id: [id number] CDT!28 documented in this encounter Plan of Treatment Not on filedocumented as of this encounter Visit Diagnoses Not on filedocumented in this encounter
--- OUTSIDE RECORDS SUMMARY | 2022-05-23 11:10 | XMS_ITS | Encounter Summary ---
:1990 Author Organization [facility] Address [address] [place] [id number] Care Team Providers Name Role Phone Unavailable Primary Care Provider Unavailable Encounter Details Date Type Department Care Team Description 03/11/2012 Hospital Encounter HX [facility] Jason Hernandez M.D. [address] Marina MD 5600 Social History Tobacco Use Types Packs/Day [...] or relatives? How often do you attend congregational or Never 2018 jehovah's witness services? 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 documented as of this encounter Progress Notes Jonatan Hernandez M.D. - 03/11/2012 12:00 AM CDT [id number] CHIEF COMPLAINT/REASON FOR VISIT Ankle injury. HISTORY OF PRESENT ILLNESS 22-year-old female with an inversion injury when she slipped on some slippers and fellow over a wet deck step. She had an x-ray of her foot yesterday, although the injury occurred on Saturday 2 days ago. The foot x-ray suggested possibly an avulsion fracture off of the talar dome. She states she cannot dorsiflex the foot and is concerned about greater injuries. There was no x-ray of the ankle so we did obtain one of these early on, finding nothing more than the previously mentioned periosteal injury and presumed avulsion injuries. No other injuries sustained. She has really not had a history of frequent ankle injuries. CURRENT MEDICATIONS Reviewed EMR dated 03/11/2012 without changes. ALLERGIES None. VITAL SIGNS TEMPERATURE: 36.5 Celsius PULSE: 84 RESPIRATORY RATE: 12 BLOOD PRESSURE: 118/56 WEIGHT: 63 kg PHYSICAL EXAM The patient walks with crutches. She does have a hard-soled shoe-type immobilizer, but this is not particularly helpful with her injury being around her ankle, so this was replaced with a [place] boot. Physical exam shows diffuse ecchymosis and edema covering most of the forefoot dorsally, as well as around the lateral malleolus. As mentioned, she really cannot dorsiflex the foot, although she has no tenderness along the Achilles region to suggest an injury there. Plantar foot was less remarkable. She does have some discomfort that extends up approximately one-third of the lower leg, although there is no edema. No calf tenderness or edema. Distal neurovascular exam was intact. I did discuss the case with Dr. John Deng Jr., our orthopedic surgeon, and suggested an MRI of her ankle. This was obtained today, showing a high ankle sprain with complete disruption of several ligaments forming the lateral malleolus. She also has some other tendon injuries. This was reviewed by Dr. Deng as well and his recommendation was for immobilization in a [place] boot. She will use crutches the first week and follow up with me at that time. 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 She will see me back in 7-10 days, sooner p.r.n. Otherwise, we anticipate involving physical therapy early on in the process. IMPRESSION/REPORT/PLAN High ankle sprain with multiple ligamentous injuries in the lateral malleolus and forefoot region. PLAN: As recommended above by Dr. Deng. Note that this was easily a 30-minute appointment with 25 minutes of counseling, arranging for and following up on the tests as described above, as well as coordinating care, but the majority of the time was in direct patient care, counseling and explaining results. Jonatan Hernandez M.D. srw Electronically Signed By: JONATAN HERNANDEZ MD On: 03/12/2012 05:36 PM Source: [facility] MHSDOLBEYNONRADSYS Document Id: [id number] documented in this encounter Miscellaneous Notes Miscellaneous - Jonatan Hernandez M.D. - 03/14/2012 1:18 PM CDT Ambulatory Depart Summary [address] [address] Visit Information Name: VALERI DILLARD Visit Date: 03/14/2012 13:18:17 Attending Provider: JONATAN HERNANDEZ MD Primary Care [...] medications. Medication/Strength Dose Route Frequency Indications/Special Instructions/Comments oxycodone-acetaminophen (Percocet 5/325 oral tablet) 1 to 2 tablets Oral every 6 hours as needed forPain No more than 4,000mg acetaminophen/24hrs fluconazole (fluconazole 150 mg oral tablet) 150 [...] your provider for clarification. Additional Information: Source: [facility] POWERCHART Document Id: [id number] Miscellaneous - Jonatan Hernandez M.D. - 03/14/2012 1:18 PM CDT Ambulatory Patient Summary [facility] [address] [place] [id number] Visit Information Name: VALERI DILLARD Current Date: 03/14/2012 13:18:18 Physicians Attending Provider: JONATAN HERNANDEZ MD Primary Care Provider: JONATAN HERNANDEZ MD Your Medications Here is a list of your medications. It is important to take your medications as directed. Use a pillbox or chart to help remind you to take your medications. Please let your doctor or nurse know if you have problems taking your medications. Medication/Strength Dose Route Frequency Indications/Special Instructions/Comments oxycodone-acetaminophen (Percocet 5/325 oral tablet) 1 to 2 tablets Oral every 6 hours as needed forPain No more than 4,000mg acetaminophen/24hrs fluconazole (fluconazole 150 mg oral tablet) 150 [...] Upcoming Appointments Date Time Location Reason Provider 03/21/2012 14:15 [facility] ANKLE Jonatan Hernandez MD Your Goals/Additional instructions: Source: 1,2,3 [employer] Document Id: [id number] [facility] - Jonatan Hernandez M.D. - 03/11/2012 5:40 PM CDT School or Work Excuse School or Work Excuse Entered On: 03/11/2012 17:41 CDT Performed On: 03/11/2012 17:40 CDT by JONATAN HERNANDEZ MD School or Work Excuse Date Patient Seen : 03/11/2012 CDT Comment : No work until 21 March due to ag ankle sprain with multiple ligament ruptures JONATAN HERNANDEZ MD - 03/11/2012 17:40 CDT [facility] Document Id: [id number] Miscellaneous - Jaylon Reeves, RRodrigueN. - 03/11/2012 9:45 AM CDT MRI Screening Questionnaire MRI Screening Questionnaire Entered On: 03/11/2012 9:47 CDT Performed On: 03/11/2012 9:45 CDT by JAYLON REEVES MRI Questionnaire Previous MRI, CT, or X-rays Done : Yes Location of previous MRI, CTor X-ray : XRAY - [place] Previous Films Requested : Yes JAYLON REEVES 03/11/2012 9:45 CDT MRI Cannot be Done Grid Automated Internal Cardiac Defibrillator : No Brain aneurysm clips : No Cochlear implant : No History of pacemaker : No Implants with a magnet : No Internal electrodes/wires : No Neurostimulator/Biostimulator : No Kane evelyn catheter : No JAYLON REEVES 03/11/2012 9:45 CDT Patient Weight > 350 lbs : No JAYLON REEVES 03/11/2012 9:45 CDT MRI Risk Factors Grid Age 65 or Older : No Diabetes (document medication) : No History of Kidney/Liver Transplant : No History of Renal Disease : No Hypertension : No Receiving Dialysis : No JAYLON REEVES 03/11/2012 9:45 CDT Creatinine/GFR Results Completed : No JAYLON REEVES 03/11/2012 9:45 CDT MRI Implants, Devices, Conditions Grid Aneurysm clip : No Bullets/BB's/Shrapnel in Body : No Tattoos/Perm Make-Up/Body Jewelry : Yes (Comment: BACK [JAYLON REEVES 03/11/2012 9:45 CDT] ) Hearing Aids/Dentures/Partial Plates : No History of cancer : No Eye Surgery/Implant : No Inner Ear Surgery/Implant : No Transdermal Med or EKG Patches : No Shunt : No Penile Implant : No Breast Tissue Paper Cone Maker/Implant : No Control Implants (IUD, diaphragm) : No : No (document number of weeks in Comment) : No Surgery : No Intravascular Coil, Filter or Stent : No Drug Infusion Pump : No External Pain Control Device : No Intravascular Catheter/Port : No Magnetic/Elec/Mech Activated Implant : No Prosthesis/Metal Implanted Surgical : No Metal Fragments in Body : No JAYLON REEVES 03/11/2012 9:45 CDT Claustrophobic : No (Comment: LONG HEAD IS NOT INSIDE THE MACHINE SHE WILL BE FINE. [JAYLON REEVES 03/11/2012 9:45 CDT] ) Pain/Unable to Lay Still : No Metal In or Removed from Eyes Ever : No Form Completed : Yes Education Materials Provided : Yes JAYLON REEVES 03/11/2012 9:45 CDT Source: 1,2,3 [facility] Document Id: [id number] Miscellaneous - Conversion, Historical Provider Ser - 03/11/2012 8:52 AM CDT Adult Stratigraphy Teacher Intake/History Adult Stratigraphy Teacher Intake/History Entered On: 03/11/2012 8:55 CDT Performed On: 03/11/2012 8:52 CDT by POONAM PIERCE Intake Chief Complaint : recheck left ankle/slipped and fell on wet deck steps/go over x-rays Onset of Symptoms : happened on Saturday Temperature Oral : 36.5C(Converted to: 97.7DegF) Peripheral Pulse Rate : 84/min Respiratory Rate : 12/min (LOW) Heart Rhythm : Regular Systolic Blood Pressure : 118mmHg Diastolic Blood Pressure : 56mmHg NIBP Mean : 77mmHg BP Location : Right upper extremity Blood Pressure Cuff Size : Regular Oxygen Therapy : Room air Actual Weight : 63.0kg(Converted to: 138lb 14oz) Weight Source : Standing scale Dosing Weight Clinic : 63.00kg POONAM PIERCE 03/11/2012 8:52 CDT General Info Information Given By : Patient Preferred Communication Mode : Verbal Languages : Yi POONAM PIERCE 03/11/2012 8:52 CDT Subjective Pain Symptoms : Yes POONAM PIERCE 03/11/2012 8:52 CDT Pain Pain Assessment Grid Pain 1 Location : Ankle Laterality : Left Intensity : 7 POONAM PIERCE 03/11/2012 8:52 CDT Dependent Habits Tobacco Use/Currently Using : No Exposure to Tobacco Smoke : Other: NEVER Smoking Status : Never smoker POONAM PIERCE 03/11/2012 8:52 CDT Caffeine Use Grid Caffeine Use : Current Type : Chocolate, Coffee, Soft drinks Frequency : Daily POONAM PIERCE 03/11/2012 8:52 CDT Recreational Drug Use Grid Drug Use : None POONAM PIERCE 03/11/2012 8:52 CDT Allergy Allergies (Active) NKA Estimated Onset Date: Unspecified ; Created By: KIRSTEN SILVERIO; Reaction Status: Active ; Category: Drug ; Substance: NKA ; Type: Allergy ; Updated By: KIRSTEN SILVERIO; Reviewed Date: 03/11/2012 8:52 CDT Source: [facility] iCreateCHART Document Id: [id number] documented in this encounter Plan of Treatment Not on filedocumented as of this encounter Procedures Procedure Name Priority Date/Time Associated Diagnosis Comme nts DX ANKLE LEFT 3+ Routine 03/11/2012 9:26 AM Resul ts for this VIEWS CDT procedure are i n the results section. documented in this encounter Results DX Ankle Left 3+ Views (03/11/2012 9:26 AM CDT) Anatomical Region Laterality Modality Lower Extremity, Ankle Left Radiographic Imag ing Specimen (Source) Anatomical Collection Method Collection Time Re ceived Time Location / / Volume Laterality 03/11/2012 9:26 AM CDT Impressions 03/11/2012 9:54 AM CDT Age-indeterminate periosteal stripping fractures/injuries of the talar head and cuboid. Narrative 03/11/2012 9:54 AM CDT EXAM: XR Ankle Left 3 or more views INDICATION: sprain ? AGE: 22 years-old COMPARISON: None. FINDINGS: Unchanged 2 mm tiny ossicle al gardenia the posterior inferior aspect of the cuboid is unchanged. 6.5 x 1.1 mm linear ossicle along the superior aspect of the talar head. E ither of these ossicles could represent acute periosteal stripping fra ctures/injuries, if there is acute pain at these sites. By radiograph s, they are age indeterminate fractures/injuries. No degenerative join t disease. Procedure Note Orlando Daigle M.D. / ProviderErickson M.D. - 12/19/2016 EXAM: XR Ankle Left 3 or more views INDICATION: sprain AGE: 22 years-old COMPARISON: None. FINDINGS: Unchanged 2 mm tiny ossicle al gardenia the posterior inferior aspect of the cuboid is unchanged. 6.5 x 1.1 mm linear ossicle along the superior aspect of the talar head. E ither of these ossicles could represent acute periosteal stripping fra ctures/injuries, if there is acute pain at these sites. By radiograph s, they are age indeterminate fractures/injuries. No degenerative join t disease. IMPRESSION: Age-indeterminate periosteal stripping fractures/injuries of the talar head and cuboid. Emily [facility] LUCRETIA documented in this encounter Visit Diagnoses Not on filedocumented in this encounter
--- OUTSIDE RECORDS SUMMARY | 2022-05-23 11:10 | XMS_ITS | Encounter Summary ---
:1990 Author Organization [facility] Address [address] [place] [address] Care Team Providers Name Role Phone Unavailable Primary Care Provider Unavailable Encounter Details Date Type Department Care Team Description 07/31/2011 Hospital Encounter [facility] Bob Wilkins M.D. [address] [place], [place] [address] (Wo rk) Social History [...] do you attend islam or Never 2018 shinto services? Do you [...] at Date Recorded Female 08/04/2017 12:14 PM RENEWABLE ENERGY TECHNICIAN documented as of this encounter Last Filed Vital Signs Vital Sign Reading Time Taken Comments Blood Pressure 120/76 07/31/2011 8:11 PM RENEWABLE ENERGY TECHNICIAN Pulse 64 07/31/2011 8:11 PM RENEWABLE ENERGY TECHNICIAN Temperature - - Respiratory Rate 16 07/31/2011 8:11 PM RENEWABLE ENERGY TECHNICIAN Oxygen Saturation - - Inhaled Oxygen Concentration - - Weight 62.3 kg (137 lb 5.6 oz) 07/31/2011 8:11 PM RENEWABLE ENERGY TECHNICIAN Height - - Body Mass Index - - documented in this encounter Medications at Time of Discharge Medication Sig Dispensed Refills Start Date End Date NAPROXEN SODIUM (ALEVE Take by mouth as 0 011 05/06/2019 ORAL) needed. documented as of this encounter Progress Notes Jayleen Wilkins M.D. - 07/31/2011 12:00 AM CST [id number] CHIEF COMPLAINT / REASON FOR VISIT Acute pharyngitis HISTORY OF PRESENT ILLNESS Perry is a 21-year-old white female who developed acute pharyngitis in the last 4 days. She then developed cough, congestion. She was concerned it may be strep. Medications, allergies, vital signs please see today's EMR. PHYSICAL EXAM Well appearing young lady in no current distress. HEENT: TMs are negative. Oropharynx mild erythema. Large amount of mucoid PND. No maxillary sinus tenderness to palpation. Neck nodes are negative. CHEST: Clear to auscultation. LABORATORY: Rapid strep is negative. IMPRESSION / REPORT / PLAN Viral URI Plan: Discussed with patient that this is likely going to respond to symptomatic care. Return if persisting greater than 3 weeks. We will follow up on TC report only if positive. All questions answered. Jayleen Wilkins M.D. bft Electronically Signed By: JAYLEEN WILKINS MD On: 08/05/2011 08:07 AM Source: [facility] MHSDOLBEYNONRADSYS Document Id: [id number] WABLE ENERGY TECHNICIAN documented in this encounter Procedure Notes Jeanette Tobin R.N. - 07/31/2011 8:24 PM CST Rapid Strep A Screen POC Rapid Strep A Screen POC Entered On: 07/31/2011 20:24 RENEWABLE ENERGY TECHNICIAN Performed On: 07/31/2011 20:24 RENEWABLE ENERGY TECHNICIAN by JEANETTE TOBIN Rapid Strep A Screen POC Rapid Strep A Screen POC : Negative Internal QC : Pass JEANETTE TOBIN - 07/31/2011 20:24 RENEWABLE ENERGY TECHNICIAN [facility] Document Id: [id number] RENEWABLE ENERGY TECHNICIAN!4 WABLE ENERGY TECHNICIAN documented in this encounter Miscellaneous Notes Miscellaneous - Jayleen Wilkins M.D. - 07/31/2011 8:30 PM CST School or Work Excuse School or Work Excuse Entered On: 07/31/2011 20:31 RENEWABLE ENERGY TECHNICIAN Performed On: 07/31/2011 20:30 RENEWABLE ENERGY TECHNICIAN by JAYLEEN WILKINS MD School or Work Excuse Date Patient Seen : 07/31/2011 RENEWABLE ENERGY TECHNICIAN Date of Return to School/Work Without Restrictions : 08/03/2011 RENEWABLE ENERGY TECHNICIAN Comment : Respiratory infection. Unable to handle food until above. MD FRANKY Pablo JANET M MD - 07/31/2011 20:30 RENEWABLE ENERGY TECHNICIAN Source: [facility] Document Id: [id number] RENEWABLE ENERGY TECHNICIAN!5 WABLE ENERGY TECHNICIAN Miscellaneous - Jeanette Tobin, R.N. - 07/31/2011 8:11 PM RENEWABLE ENERGY TECHNICIAN Adult Real Estate Associate Intake/History Adult Real Estate Associate Intake/History Entered On: 07/31/2011 20:15 RENEWABLE ENERGY TECHNICIAN Performed On: 07/31/2011 20:11 RENEWABLE ENERGY TECHNICIAN by JEANETTE TOBIN Intake Chief Complaint : S/T Onset of Symptoms : 4 days. Ambulatory Intake Additional Information : Had strep in March Temperature Oral : 36.7C(Converted to: 98.1DegF) Peripheral Pulse Rate : 64/min Respiratory Rate : 16/min Systolic Blood Pressure : 120mmHg Diastolic Blood Pressure : 76mmHg NIBP Mean : 91mmHg BP Location : Right upper extremity Blood Pressure Cuff Size : Regular Actual Weight : 62.3kg(Converted to: 137lb 6oz) Dosing Weight Clinic : 62.30kg JEANETTE TOBIN 07/31/2011 20:11 RENEWABLE ENERGY TECHNICIAN Subjective Pain Symptoms : Yes MAHENDRAJEANETTE MCFARLAND 07/31/2011 20:11 RENEWABLE ENERGY TECHNICIAN Pain Pain Assessment Grid Pain 1 Location : Throat JEANETTE TOBIN 07/31/2011 20:11 RENEWABLE ENERGY TECHNICIAN Dependent Habits Tobacco Use/Currently Using : No Exposure to Tobacco Smoke : Other: NEVER Smoking Status : Never smoker JEANETTE TOBIN 07/31/2011 20:11 RENEWABLE ENERGY TECHNICIAN Caffeine Use Grid Caffeine Use : Current Type : Chocolate, Coffee, Soft drinks Frequency : Daily JEANETTE TOBIN 07/31/2011 20:11 RENEWABLE ENERGY TECHNICIAN Recreational Drug Use Grid Drug Use : None MADI TOBINLOLA Edy 07/31/2011 20:11 RENEWABLE ENERGY TECHNICIAN Allergy Allergies (Active) NKA Estimated Onset Date: Unspecified ; Created By: KIRSTEN SILVERIO; Reaction Status: Active ; Category: Drug ; Substance: NKA ; Type: Allergy ; Updated By: KIRSTEN SILVERIO; Reviewed Date: 07/31/2011 20:11CST Source: [facility] POWERCHART Document Id: [id number] RENEWABLE ENERGY TECHNICIAN!33 WABLE ENERGY TECHNICIAN documented in this encounter Plan of Treatment Not on filedocumented as of this encounter Procedures Procedure Name Priority Date/Time Associated Diagnosis Comme nts RAPID STREP A Routine 07/31/2011 8:43 PM Results for this SCREEN RENEWABLE ENERGY TECHNICIAN procedure are i n the results section. documented in this encounter Results Rapid Strep A Screen (07/31/2011 8:43 PM RENEWABLE ENERGY TECHNICIAN) [facility] gist Method Time Signature HXRapid Strep POWERCHART Confirmation HXFinal Negative for POWERCHART Group A Strep by culture. Specimen (Source) Anatomical Collection Method Collection Time Re ceived Time Location / / Volume Laterality Throat 07/31/2011 8:43 PM RENEWABLE ENERGY TECHNICIAN Jayleen Wilkins M.D. LAB MICROBIOLOGY - GENERAL O RDERABLES Performing Organization Address City/State/ZIP Code Phon e Number POWERCHART documented in this encounter Visit Diagnoses Not on filedocumented in this encounter
--- OUTSIDE RECORDS SUMMARY | 2022-05-23 11:10 | XMS_ITS | Encounter Summary ---
:1990 Author Organization [facility] Address [address] [place] [address] Care Team Providers Name Role Phone Unavailable Primary Care Provider Unavailable Encounter Details Date Type Department Care Team Description 04/07/2011 Hospital Encounter [facility] Ruba Hines, ACCOUNTING POLICY CONSULTANT, C.N.P. [address] [place] [id number] (Wo rk) Social History Tobacco Use Types [...] or relatives? How often do you attend yarsani or Never 2018 sabianism services? 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 documented as of this encounter Progress Notes Ruba Hines APRN RCharis - 04/07/2011 12:00 AM CDT [id number] CHIEF COMPLAINT / REASON FOR VISIT Strep pharyngitis. HISTORY OF PRESENT ILLNESS History of a sore throat for the last week, getting worse. She is feeling more ill and was concerned of the possibility of strep. PHYSICAL EXAM GENERAL: Alert, interactive, very pleasant young woman in no acute distress. HEAD: Normocephalic. EYES: PERRLA. ENT: Nares moist. Throat is erythematous throughout the soft palate and, as noted, rapid strep is positive. Neck is supple with positive lymphadenopathy. LUNGS: Clear. HEART: Rate is regular. IMPRESSION / REPORT / PLAN DIAGNOSTIC: Rapid strep is positive immediately. 1) Strep pharyngitis. We will treat with amoxicillin 875 mg twice daily for the next 10 days. She will be off of work for the next 24 hours and follow up for further needs. Otherwise, reassurance and symptomatic management was discussed. Ruba Hines A.P.R.N., sks F.N.P., C.D.E. Electronically Signed By: RUBA HINES [facility] On: 04/12/2011 01:11 PM Source: [facility] MHSDOLBEYNONRADSYS Document Id: [id number] documented in this encounter Procedure Notes Singh Cornejo - 04/07/2011 9:38 AM CDT Rapid Strep A Screen POC Rapid Strep A Screen POC Entered On: 04/07/2011 9:38 CDT Performed On: 04/07/2011 9:38 CDT by SINGH CORNEJO Rapid Strep A Screen POC Rapid Strep A Screen POC: Positive Internal QC: Pass SINGH CORNEJO - 04/07/2011 9:38 CDT Source: [facility] POWERCHART Document Id: [id number] CDT!4 documented in this encounter Miscellaneous Notes Miscellaneous - Ruba Hines APRN, R.N. - 04/07/2011 9:47 AM CDT Ambulatory Patient Summary [address] [address] Visit Information Name: VALERI DILLARD Current Date: 04/07/2011 09:47:38 Primary Care Provider: TANMAY CHUA MD Your Medications Here is a list of your medications. It is important to take your medications as directed. Use a pillbox or chart to help remind you to take your medications. Please let your doctor or nurse know if you have problems taking your medications. Medication/Strength Dose Route Frequency Indications/Special Instructions/Comments amoxicillin (amoxicillin 875 mg oral tablet) 875 mg Oral two times a day for 10 Days naproxen (Aleve) Oral as needed fluticasone nasal (Flonase) 2 spray(s) Nostrils(Both) once a day Your Allergies & Intolerances Substance Reaction Symptoms Category Comments NKA Drug Your Problem List Problem Status Onset Comments No Problems found Your Recommendations We want to make sure you get the tests, immunizations, and guidance you need to stay healthy. Here is a customized list of recommendations, based on information we have in your medical record. Your doctor may have additional recommendations for you, based on your personal medical history and risk factors. You can help us by calling us to make an appointment when you are due for your tests. Additional information regarding recommendations: Test/Treatment Last Done Next Due Additional Information Screening Chlamydia every 1 year Females Age 16-24 04/07/2011 Vaccine: Tetanus every 10 years 06/21/2003 06/18/2013 Immunization to help prevent you from getting the serious disease Tetanus (Lockjaw). Your Upcoming Appointments Date Time Location Reason Provider No Appointments found Your Goals/Additional instructions: Source: [facility] POWERCHART Document Id: [id number] Miscellaneous - Ruba Hines APRN RCharis - 04/07/2011 9:47 AM CDT Ambulatory Depart [facility] [address] [place] [address] [address] Visit Information Name: VALERI DILLARD Current Date: 04/07/2011 09:47:37 Primary Care Provider: TANMAY CHUA MD VALERI DILLARD has been given the following list of medications: Your Medications It is important to take your medications as directed. Use a pill box or chart to help remind you to take your medications. Please let your doctor or nurse know if you have problems taking your medications. Medication/Strength Dose Route Frequency Indications/Special Instructions/Comments amoxicillin (amoxicillin 875 mg oral tablet) 875 mg Oral two times a day for 10 Days naproxen (Aleve) Oral as needed fluticasone nasal (Flonase) 2 spray(s) Nostrils(Both) once a day Additional Information: Yes - Current list of reconciled medications is provided and explained to the patient and/or family, guardian/caregiver. [facility] Document Id: [id number] Miscellaneous - Ruba Hines APRN R.N. - 04/07/2011 9:45 AM CDT School or Work Excuse School or Work Excuse Entered On: 04/07/2011 9:46 CDT Performed On: 04/07/2011 9:45 CDT by RUBA HINES School or Work Excuse Date Patient Seen: 04/07/2011 CDT Date of Return to School/Work Without Restrictions: 04/08/2011 CDT Comment: strep throat started antibiotic today RUBA HINES - 04/07/2011 9:45 CDT [facility] Document Id: [id number] CDT!5 Miscellaneous - Singh Cornejo Abelardo - 04/07/2011 9:28 AM CDT Adult Panel Beater Intake/History Adult Panel Beater Intake/History Entered On: 04/07/2011 9:30 CDT Performed On: 04/07/2011 9:28 CDT by SINGH CORNEJO Intake Chief Complaint: S/T x 1 week Temperature Oral: 36.5C(Converted to: 97.7DegF) Peripheral Pulse Rate: 84/min Respiratory Rate: 16/min Systolic Blood Pressure: 112mmHg Diastolic Blood Pressure: 66mmHg NIBP Mean: 81mmHg BP Location: Right upper extremity Actual Weight: 62.500kg(Converted to: 137lb 13oz) Dosing Weight Clinic: 62.50kg SHERRELLMARTAlexia Zhou - 04/07/2011 9:28 CDT Subjective Pain Symptoms: No SINGH CORNEJO - 04/07/2011 9:28 CDT Dependent Habits Tobacco Use/Currently Using: No Exposure to Tobacco Smoke: Other: NEVER SINGH CORNEJO - 04/07/2011 9:28 CDT Caffeine Use Grid Caffeine Use: Current Type: Chocolate, Coffee, Soft drinks Frequency: Daily SINGH CORNEJO - 04/07/2011 9:28 CDT Recreational Drug Use Grid Drug Use: None SINGH CORNEJO - 04/07/2011 9:28 CDT Allergy Allergies (Active) NKA Estimated Onset Date: Unspecified ; Created By: KIRSTEN SILVERIO; Reaction Status: Active ; Category: Drug ; Substance: NKA ; Type: Allergy ; Updated By: KIRSTEN SILVERIO; Reviewed Date: 04/07/2011 9:28 CDT Source: [facility] [employer] Document Id: [id number] CDT!25 documented in this encounter Plan of Treatment Not on filedocumented as of this encounter Visit Diagnoses Not on filedocumented in this encounter
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
--- OUTSIDE RECORDS SUMMARY | 2022-05-23 11:10 | XMS_ITS | Encounter Summary ---
:1990 Author Organization [facility] Address [address] [place] [address] Care Team Providers Name Role Phone Unavailable Primary Care Provider Unavailable Encounter Details Date Type Department Care Team Description 08/22/2011 Hospital Encounter [facility]X [facility] Bob Rodriguez M.D. [address] [place], [place] [address] (Wo rk) Social History [...] do you attend rastafari or Never 2018 spiritism services? 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 - 08/22/2011 3:40 PM CST Depo-Provera Administration Depo-Provera Administration Entered On: 08/22/2011 15:41 ROOMING HOUSE INSPECTOR Performed On: 08/22/2011 15:40 ROOMING HOUSE INSPECTOR by MAYRA BRODY Depo-Provera Administration Return appointment : 11/14/2011 CDT Needs test : Yes Urine Test : Negative MAYRA BRODY - 08/22/2011 15:40 ROOMING HOUSE INSPECTOR Vitals/Ht/Wt Systolic Blood Pressure : 114mmHg Diastolic Blood Pressure : 58mmHg NIBP Mean : 77mmHg BP Location : Left upper extremity Blood Pressure Cuff Size : Regular MAYRA BRODY - 08/22/2011 15:40 ROOMING HOUSE INSPECTOR Source: [employer] Document Id: [id number] ROOMING HOUSE INSPECTOR!11 ING HOUSE INSPECTOR documented in this encounter Plan of Treatment Not on filedocumented as of this encounter Visit Diagnoses Not on filedocumented in this encounter
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
--- OUTSIDE RECORDS SUMMARY | 2022-05-23 11:10 | XMS_ITS | Encounter Summary ---
:1990 Author Organization [facility] Address [address] [place] [address] Care Team Providers Name Role Phone Unavailable Primary Care Provider Unavailable Encounter Details Date Type Department Care Team Description 08/06/2011 Hospital Encounter [facility]X [facility] Jason Hernandez M.D. [address] [place] [address] Social History Tobacco [...] do you attend yarsani or Never 2018 baptist services? Do you belong to any clubs [...] at Date Recorded Female 08/04/2017 12:14 PM RADIOGRAPHER ANGIOGRAM documented as of this encounter Last Filed Vital Signs Vital Sign Reading Time Taken Comments Blood Pressure 104/58 08/06/2011 2:09 PM RADIOGRAPHER ANGIOGRAM Pulse 56 08/06/2011 2:09 PM RADIOGRAPHER ANGIOGRAM Temperature - - Respiratory Rate - - Oxygen Saturation - - Inhaled Oxygen Concentration - - Weight 60.2 kg (132 lb 11.5 oz) 08/06/2011 2:09 PM RADIOGRAPHER ANGIOGRAM Height - - Body Mass Index - - documented in this encounter Medications at Time of Discharge Medication Sig Dispensed Refills Start Date End Date NAPROXEN SODIUM (ALEVE Take by mouth as 0 011 05/06/2019 ORAL) needed. documented as of this encounter Progress Notes Tanmay Hernandez M.D. - 08/06/2011 12:00 AM CST [id number] Evaluation for control HISTORY OF PRESENT ILLNESS 21-year-old female presents with her significant other to discuss control options. She would like to have a Depo-Provera but her last period was several weeks ago and she has been sexually active since without contraception so we did insist upon waiting for her next period before doing a test as well as a planned chlamydia, urine test at the same time and thereafter administrating the 150 mg of Depo-Provera then and every 3 months thereafter for a year, seeing her back then for a recheck. She has no specific complaints or concerns other than the fact that her mother is under evaluation for possible breast cancer and she is somewhat frightened over quite a few of the fibrocystic changes in her own breasts. CURRENT MEDICATIONS None ALLERGIES None VITAL SIGNS BLOOD PRESSURE: 104/58 PULSE: 56 TEMP: 36.6 WEIGHT: 60.2 kg Lungs were clear CARDIAC: Regular rate and rhythm without murmur Breasts did have some fibrocystic changes but no dominant mass. ABDOMEN: Soft and nontender. IMPRESSION/REPORT/PLAN Contraceptive counseling with patient anticipating Depo-Provera initiation, which will happen during her next period with a negative test. We did talk about control pills, but she cannot remember to take these. We also talked about Mirena IUD versus other control options but she still sounds most interested in Depo-Provera. We did warn her about side effects, specifically mentioning hair loss and weight gain as several possibilities. Our plan is to see her back for initiation of the Depo-Provera, which can be done by our [facility] if easier in the next week or two when her period arrives. Tanmay Hernandez M.D. klj Electronically Signed By: TANMAY HERNANDEZ MD On: 08/10/2011 07:50 AM Source: [facility] MHSDOLBEYNONRADSYS Document Id: [id number] OGRAPHER ANGIOGRAM documented in this encounter Miscellaneous Notes Miscellaneous - Jaylon Reeves, R.N. - 08/06/2011 2:09 PM CST Adult Diesel Stationary Engineer Intake/History Adult Diesel Stationary Engineer Intake/History Entered On: 08/06/2011 14:12 RADIOGRAPHER ANGIOGRAM Performed On: 08/06/2011 14:09 RADIOGRAPHER ANGIOGRAM by JAYLON REEVES Intake Chief Complaint : WOULD LIKE TO START ON THE DEPO SHOT FOR CONTROL LMP Date : 07-21-2011 Temperature Oral : 36.6C(Converted to: 97.9DegF) Peripheral Pulse Rate : 56/min (LOW) Heart Rhythm : Regular Systolic Blood Pressure : 104mmHg Diastolic Blood Pressure : 58mmHg NIBP Mean : 73mmHg BP Location : Right upper extremity Blood Pressure Cuff Size : Regular Actual Weight : 60.2kg(Converted to: 132lb 11oz) Dosing Weight Clinic : 60.20kg JAYLON REEVES - 08/06/2011 14:09 RADIOGRAPHER ANGIOGRAM General Info Information Given By : Patient Preferred Communication Mode : Verbal Languages : Persian JAYLON REEVES - 08/06/2011 14:09 RADIOGRAPHER ANGIOGRAM Subjective Pain Symptoms : No JAYLON REEVES 08/06/2011 14:09 RADIOGRAPHER ANGIOGRAM Dependent Habits Tobacco Use/Currently Using : No Exposure to Tobacco Smoke : Other: NEVER Smoking Status : Former smoker JAYLON REEVES - 08/06/2011 14:09 RADIOGRAPHER ANGIOGRAM Caffeine Use Grid Caffeine Use : Current Type : Chocolate, Coffee, Soft drinks Frequency : Daily JAYLON REEVES - 08/06/2011 14:09 RADIOGRAPHER ANGIOGRAM Recreational Drug Use Grid Drug Use : None JAYLON REEVES 08/06/2011 14:09 RADIOGRAPHER ANGIOGRAM Allergy Allergies (Active) NKA Estimated Onset Date: Unspecified ; Created By: KIRSTEN SILVERIO; Reaction Status: Active ; Category: Drug ; Substance: NKA ; Type: Allergy ; Updated By: KIRSTEN SILVERIO; Reviewed Date: 08/06/2011 14:08CST Source: [facility] POWERCHART Document Id: [id number] RADIOGRAPHER ANGIOGRAM!32 OGRAPHER ANGIOGRAM documented in this encounter Plan of Treatment Not on filedocumented as of this encounter Visit Diagnoses Not on filedocumented in this encounter
--- OUTSIDE RECORDS SUMMARY | 2022-05-23 11:10 | XMS_ITS | Encounter Summary ---
:1990 Author Organization [facility] Address [address] [place] [address] Care Team Providers Name Role Phone Unavailable Primary Care Provider Unavailable Encounter Details Date Type Department Care Team Description 03/09/2012 Hospital Encounter [facility] Ruba Muñoz, AVIONICS SYSTEMS INTEGRATION SPECIALIST, C.N.P. [address] [place] [id number] (Wo rk) Social History Tobacco Use Types [...] do you attend zoroastrianism or Never 2018 sikhism services? 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 documented as of this encounter Progress Notes Ruba Muñoz, Jarvis PLAZA. - 03/09/2012 12:00 AM CDT [id number] CHIEF COMPLAINT/REASON FOR VISIT Foot pain. HISTORY OF PRESENT ILLNESS Left foot is very painful after she slipped on a step on the edge of the step. She hit the outside of her leg. She was wearing flip flops. She can hardly step on it. She can hardly walk at all. She is here with her father for support. Denies any other chronic health issues. Current medications, allergies and vitals all reviewed without change per EMR. PHYSICAL EXAM Alert, interactive, pleasant young lady, no acute distress. Skin is warm and dry. Left foot with a very large hematoma with tenderness on the lateral aspect of the foot at the base of the ankle. She has diminished range of motion in her ankle due to pain. Color, warmth, sensation of the toes is normal. She has ice on her foot. Current medications, allergies and vitals all reviewed without change per EMR. X-ray does not reveal any fractures in 3 views. IMPRESSION/REPORT/PLAN Left foot pain. Obvious hematoma. A 3-inch Derick for support was applied. She was put in a postop shoe for further support. She will rest, elevate, ice and use anti-inflammatory. Will try very gently to increase activity and range of motion exercises and a heat bath to help decrease the hematoma and increase her mobility. She understands and agrees with plan. Following after radiology report also to verify and clarify that there has been no fracture. Ruba Muñoz A.P.R.N., akg Jone Leary Electronically Signed By: RUBA MUÑOZP On: 03/17/2012 07:56 AM Source: [facility] MHSDOLBEYNJANESYS Document Id: [id number] Jonatan Chua M.D. - 03/09/2012 12:00 AM CDT [id number] CHIEF COMPLAINT/REASON FOR VISIT Ankle injury. HISTORY OF PRESENT ILLNESS 22-year-old female presents for recheck of an ankle injury that occurred on Saturday which is 48 hours ago. She was seen in Urgent Care Clinic yesterday where x-ray of her foot was obtained which showed possibly a small avulsion fracture off of the dorsal aspect of one of the middle mid foot bones but nothing more specific. Her story is more concerned with the fact she states she had a hematoma almost instantly. This was also noted by Urgent Care staff and now her entire foot seems to be quite ecchymotic from obvious significant bleeding. The patient is absolutely unable to do any dorsiflexion but has no tenderness in the Achilles region. All of her pain is around the lateral malleolus or anterior to it. I spoke with Dr. John Deng Jr. of our Orthopedics staff and he is concerned about a possible ATFL injury or a perineal tendon rupture. He does recommend completing the x-ray series with an x-ray of the ankle and if this is negative or unrevealing we are supposed to move forward with a semi-urgent MRI of her ankle to rule out tendon injury that would require urgent surgical repair. Dr. Deng promises to see her back anywhere along this process but thinks the MRI is important to aid in diagnosis before coming up with a plan. CURRENT MEDICATIONS Reviewed EMR dated 03/11/2012 without changes ALLERGIES None VITAL SIGNS TEMPERATURE: 36.5 Celsius PULSE: 84 RESPIRATORY RATE: 12 BLOOD PRESSURE: 118/56 WEIGHT: 63 kg PHYSICAL EXAM Patient has a very dramatic limp. Her left foot is rather ecchymotic and edematous more so on the lateral aspect but this goes all the way down to the toes. Her Achilles is not tender but grasping her calf does not elicit any plantar flexion compared to the opposite ankle raising concerns. Similarly the patient states she just cannot dorsiflex. It does not seem to be because of pain it is just something she literally cannot do so I strongly suspect that she has ripped a tendon muscle complex IMPRESSION / REPORT / PLAN Acute ankle injury with concern for significant tendon rupture PLAN: X-ray of the ankle. Thereafter MRI if no answer forthcoming. I will see her or speak to her as so as the MRI results are available. We will immobilizer her in a foot, ankle, leg immobilizer in the interim. Jonatan Chua M.D. lak Electronically Signed By: JONATAN CHUA MD On: 03/11/2012 10:27 AM Source: [facility] MHSDOLBEYNONRADSYS Document Id: [id number] documented in this encounter Miscellaneous Notes Miscellaneous - Lily Peralta M.D. - 03/10/2012 8:08 AM CDT Results Notification Document Contains Addenda Addendum by SINGH WYNNE on 10 March 2012 11:14:52 CDT PT. notified of results and is going to follow up From: LILY PERALTA MD To: Urgent Care Nurse Sent: 03/10/2012 08:08:04 CDT ! Show up: 03/10/2012 13:08:04 [facility] Subject: Results Notification Actions: Notify patient of results Source: [facility] POWERCHART Document Id: [id number] Miscellaneous - Reji Menjivar R.N. - 03/09/2012 5:19 PM CDT Adult Radio Mechanic Helper Intake/History Adult Radio Mechanic Helper Intake/History Entered On: 03/09/2012 17:22 CDT Performed On: 03/09/2012 17:19 CDT by REJI MENJIVAR Intake Chief Complaint : Pt slipped on outside steps. Pt is having pain in left foot and cannot bear weighton it. Onset of Symptoms : Late afternoon today Temperature Oral : 36.8C(Converted to: 98.2DegF) Peripheral Pulse Rate : 76/min Respiratory Rate : 16/min Systolic Blood Pressure : 120mmHg Diastolic Blood Pressure : 80mmHg NIBP Mean : 93mmHg BP Location : Right upper extremity Blood Pressure Cuff Size : Regular Actual Weight : 64.0kg(Converted to: 141lb 2oz) Dosing Weight Clinic : 64.00kg REJI MENJIVAR - 03/09/2012 17:19 CDT Subjective Pain Symptoms : Yes REJI MENJIVAR - 03/09/2012 17:19 CDT Pain Pain Assessment Grid Pain 1 Location : Foot Laterality : Left REJI MENJIVAR - 03/09/2012 17:19 CDT Dependent Habits Tobacco Use/Currently Using : No Exposure to Tobacco Smoke : Other: NEVER Smoking Status : Never smoker REJI MENJIVAR - 03/09/2012 17:19 CDT Caffeine Use Grid Caffeine Use : Current Type : Chocolate, Coffee, Soft drinks Frequency : Daily REJI MENJIVAR - 03/09/2012 17:19 CDT Recreational Drug Use Grid Drug Use : None REJI MENJIVAR - 03/09/2012 17:19 CDT Allergy Allergies (Active) NKA Estimated Onset Date: Unspecified ; Created By: KIRSTEN SILVERIO; Reaction Status: Active ; Category: Drug ; Substance: NKA ; Type: Allergy ; Updated By: KIRSTEN SILVERIO; Reviewed Date: 03/09/2012 17:19CDT Source: [facility] POWERCHART Document Id: [id number] documented in this encounter Plan of Treatment Not on filedocumented as of this encounter Procedures Procedure Name Priority Date/Time Associated Diagnosis Comme nts DX FOOT LEFT 3+ Routine 03/09/2012 5:58 PM Result s for this VIEWS CDT procedure are i n the results section. documented in this encounter Results DX Foot Left 3+ Views (03/09/2012 5:58 PM CDT) Anatomical Region Laterality Modality Lower Extremity, Foot Left Radiographic Imagi ng Specimen (Source) Anatomical Collection Method Collection Time Re ceived Time Location / / Volume Laterality 03/09/2012 5:58 PM CDT Impressions 03/10/2012 7:12 AM CDT ??Please see above dictation. Narrative 03/10/2012 7:12 AM CDT EXAM: ??XR Foot Left 3 or more views AGE: ??22 years old. GENDER: ??Female. INDICATION: ??pain after trauma fell off step in the rain with flip flop on, very large hematoma lateral calixto t base of ankle COMPARISON: ??None. FINDINGS: ??Soft tissue swelling along t he lateral aspect of the proximal left foot. Small spicular bone near the base of the proximal cuboid, may represent a small avulsion fracture. Cli nical correlation with point tenderness would be helpful. If pain persists consider followup radio graphs in 10 days and/or MRI of the region of clinical interest. Procedure Note Derik Pacheco M.D. / Provider, Val rojas M.D. - 12/19/2016 EXAM: XR Foot Left 3 or more views AGE: [age] years old. GENDER: Female. INDICATION: pain after trauma fell off s tep in the rain with flip flop on, very large hematoma lateral calixto t base of ankle COMPARISON: None. FINDINGS: Soft tissue swelling along the lateral aspect of the proximal left foot. Small spicular bone near the base of the proximal cuboid, may represent a small avulsion fracture. Cli nical correlation with point tenderness would be helpful. If pain persists consider followup radio graphs in 10 days and/or MRI of the region of clinical interest. IMPRESSION: Please see above dictation. Gretchen Nix(Johann) [facility] DIAGNOSTIC IMAGING PROC EDURES documented in this encounter Visit Diagnoses Not on filedocumented in this encounter
--- OUTSIDE RECORDS SUMMARY | 2022-05-23 11:10 | XMS_ITS | Encounter Summary ---
:1990 Author Organization [facility] Address [address] [place] [id number] Care Team Providers Name Role Phone Unavailable Primary Care Provider Unavailable Encounter Details Date Type Department Care Team Description 03/11/2012 Hospital Encounter HX [facility] Jason Hernandez M.D. [address] [place] [address] Social History Tobacco Use Types Packs/Day [...] do you attend hoahaoism or Never 2018 tenriism services? 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 documented as of this encounter Plan of Treatment Not on filedocumented as of this encounter Procedures Procedure Name Priority Date/Time Associated Diagnosis Comme nts MR ANKLE LEFT Routine 03/11/2012 12:14 PM Results for this WITHOUT IV CONTRAST CDT procedur e are in the results section. documented in this encounter Results MR Ankle Left without IV Contrast (03/11/2012 12:14 PM CDT) Anatomical Region Laterality Modality Lower Extremity, Ankle Left Magnetic Resonanc e Specimen (Source) Anatomical Collection Method Collection Time Re ceived Time Location / / Volume Laterality 03/11/2012 12:14 PM CDT Impressions 03/11/2012 1:31 PM CDT Multiple findings as noted above. Please see above dictation for detailed discussion. Narrative 03/11/2012 1:31 PM CDT EXAM: ??MR Ankle Left w/o contrast AGE: ??22 years old. GENDER: ??Female. INDICATION: ??RECENT ANKLE INJURY, injur y occurred approximately 03/09/2012. Plain radiographs of the left ankle March 11, 2012 and plain radiographs of the left foot Augus 2011. COMPARISON: ??None. FINDINGS: ??Cutaneous marker was placed over the region of maximal discomfort as identified by the patient (series 3 image 9, series 2 image 9, series 5 image 4, series 4 imag e 4, series 7 image 13, series 6 image 13). ACHILLES TENDON: ??Intact/normal PERONEUS BREVIS AND LONGUS TENDONS: ??Mi ld/moderate tenosynovitis of the pronator brevis and longus tendons. Probable, tiny area split thickness tear ing involving the peroneal brevis tendon (series 2 image 14). MEDIAL TENDON GROUP: ??Mild tenosynoviti s of the tibialis posterior and flexor digitorum longus tendon. ANTERIOR TENDON GROUP: ??Relatively prom inent edema along the peripheral/anterior lateral lower leg/an kle. Probable partial-thickness tearing involving the mid and proximal extensor digitorum longus tendons. Due to relativ e acuity, edema, this area is difficult to optimally evaluate. Probable high-grade sprain with tearing of the interosseous talocalcaneal ligament, which is in rela tive proximity to the region of maximal discomfort as identified by t he patient. ANTERIOR TIBIAL-FIBULAR LIGAMENT: ??Bandar a, without discrete tearing or disruption of the anterior tibiofibular ligament. ANTERIOR TALOFIBULAR LIGAMENT: ??High-gr eusebio sprain with near full thickness tearing of the anterior talofi bular ligament, few remaining twigs of fibers remain intact. POSTERIOR TALOFIBULAR LIGAMENT: ??Probab le moderate sprain without discrete tears or disruptions of the pos terior talofibular ligament. CALCANEAL FIBULAR LIGAMENT: ??Moderate a mount of edema of the calcaneofibular ligament, possibly react nya, no discrete tear or disruption. DELTOID LIGAMENT: ??Moderate/high-grade sprain of the deltoid ligament complex, specifically the tibionavicular and tibiocalcaneal component. SPRING LIGAMENT: ??Probable moderate gra de sprain of the spring ligament. TALAR DOME: ??No focal osteochondral les ions. BONES: ??The plain radiographs which dem onstrated the periosteal stripping along the superior margin of t he distal talus corresponds with a partial-thickness tear of the luisito ar navicular ligamentous attachment (series 4 image 13). Small am ount of edema near the base of the cuboid. No discrete fracture. SINUS TARSI: ??Small amount of edema wit hin the sinus Tarsi. No masses. PLANTAR FASCIA: ??Intact/normal. Procedure Note Derik Pacheco M.D. / ProviderVal M.D. - 12/19/2016 EXAM: MR Ankle Left w/o contrast AGE: [age] years old. GENDER: Female. INDICATION: RECENT ANKLE INJURY, injury occurred approximately 03/09/2012. Plain radiographs of the left ankle March 11, 2012 and plain radiographs of the left foot Augus 2011. COMPARISON: None. FINDINGS: Cutaneous marker was placed ov er the region of maximal discomfort as identified by the patient (series 3 image 9, series 2 image 9, series 5 image 4, series 4 imag e 4, series 7 image 13, series 6 image 13). ACHILLES TENDON: Intact/normal PERONEUS BREVIS AND LONGUS TENDONS: Mild /moderate tenosynovitis of the pronator brevis and longus tendons. Probable, tiny area split thickness tear ing involving the peroneal brevis tendon (series 2 image 14). MEDIAL TENDON GROUP: Mild tenosynovitis of the tibialis posterior and flexor digitorum longus tendon. ANTERIOR TENDON GROUP: Relatively promin ent edema along the peripheral/anterior lateral lower leg/an kle. Probable partial-thickness tearing involving the mid and proximal extensor digitorum longus tendons. Due to relativ e acuity, edema, this area is difficult to optimally evaluate. Probable high-grade sprain with tearing of the interosseous talocalcaneal ligament, which is in rela tive proximity to the region of maximal discomfort as identified by jie wharton patient. ANTERIOR TIBIAL-FIBULAR LIGAMENT: Edema, without discrete tearing or disruption of the anterior tibiofibular ligament. ANTERIOR TALOFIBULAR LIGAMENT: High-grad e sprain with near full thickness tearing of the anterior talofi bular ligament, few remaining twigs of fibers remain intact. POSTERIOR TALOFIBULAR LIGAMENT: Probable moderate sprain without discrete tears or disruptions of the pos terior talofibular ligament. CALCANEAL FIBULAR LIGAMENT: Moderate felipe unt of edema of the calcaneofibular ligament, possibly react nya, no discrete tear or disruption. DELTOID LIGAMENT: Moderate/high-grade sp rain of the deltoid ligament complex, specifically the tibionavicular and tibiocalcaneal component. SPRING LIGAMENT: Probable moderate grade sprain of the spring ligament. TALAR DOME: No focal osteochondral lesio ns. BONES: The plain radiographs which demon strated the periosteal stripping along the superior margin of jie wharton distal talus corresponds with a partial-thickness tear of the luisito ar navicular ligamentous attachment (series 4 image 13). Small am ount of edema near the base of the cuboid. No discrete fracture. SINUS TARSI: Small amount of edema withi n the sinus Tarsi. No masses. PLANTAR FASCIA: Intact/normal. IMPRESSION: Multiple findings as noted above. Please see above dictation for detailed discussion. Keily Kowalski(R)(CT), R.T.(R), R.T.(R)(MR) I MG MRI PROCEDURES documented in this encounter Visit Diagnoses Not on filedocumented in this encounter
--- OUTSIDE RECORDS SUMMARY | 2022-05-23 11:10 | XMS_ITS | Encounter Summary ---
:1990 Author Organization [facility] Address [address] [place] [address] Care Team Providers Name Role Phone Unavailable Primary Care Provider Unavailable Encounter Details Date Type Department Care Team Description 07/04/2011 Hospital Encounter [facility] Bob Wilkins M.D. [address] [place], [place] [address] (Wo rk) Social History [...] do you attend orthodox or Never 2018 amish services? 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 documented as of this encounter Progress Notes Jayleen Wilkins M.D. - 07/04/2011 12:00 AM CST [id number] CHIEF COMPLAINT / REASON FOR VISIT 1) Right knee injury. 2) Ingrown toenail. HISTORY OF PRESENT ILLNESS Ms. Dillard is a 21-year-old white female who, 4 days ago, fell out of a lofted bed at 5 feet off the ground and fell onto her right knee. She has an abrasion on the lateral aspect of the knee. 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 She is having some difficulty stepping down on it, but, in general, is quite functional. She said her family wished her to have it checked out. She also, for the past week, has developed ingrown nail on the medial aspect of the right great toe. She thinks she may have had one in the past, but this one drained. The pain has been down since it has drained. PHYSICAL EXAM EXTREMITIES: Right knee is examined and shows a superficial abrasion. Bandage is removed. A small amount of serum is washed off. Re-bandaged. Patella itself is nontender. There is no effusion on the joint line. When I had her step down, though, and give it some impact, she had some discomfort. She walks with a mild limp. We, given the mechanism, thought we better make sure she did not have an tibial plateau fracture. Right great toe shows ingrown nail on medial aspect. Her great toes on both feet have angled toenails in the corner. We lifted up the one that it is in question. There is moderate inflammatory reaction around it, but certainly there is no true paronychia. No significant swelling. IMPRESSION / REPORT / PLAN IMAGING STUDIES: X-ray of the knee is negative. 1) Right knee contusion, no fracture. 2) Ingrown nail. PLAN: Soak and lift until the edges have grown out. I taught her now to square off her toenails when she is cutting them. Keflex 500 mg 3 times daily for just 7 days until she gets things under control. All questions answered. Jayleen Wilkins M.D. cla Electronically Signed By: JAYLEEN WILKINS MD On: 07/08/2011 09:01 PM Source: [facility] MHSDOLBEYNONRADSYS Document Id: [id number] EN MAKER documented in this encounter Miscellaneous Notes Miscellaneous - Sadaf Louie L.P.N. - 07/04/2011 8:06 AM CST Adult Department Store Manager Intake/History Adult Department Store Manager Intake/History Entered On: 07/04/2011 8:11 SCREEN MAKER Performed On: 07/04/2011 8:06 SCREEN MAKER by SADAF LOUIE Intake Chief Complaint : ingrown toenail on right big toe and fell about 5 feet on Sat and her knee has been bothering her. That was the first thing she fell on Onset of Symptoms : x 1 week toenail x 5 days knee Temperature Oral : 36.4C(Converted to: 97.5DegF) Peripheral Pulse Rate : 60/min Respiratory Rate : 18/min Systolic Blood Pressure : 108mmHg Diastolic Blood Pressure : 60mmHg NIBP Mean : 76mmHg BP Location : Right upper extremity Actual Weight : 63.0kg(Converted to: 138lb 14oz) Dosing Weight Clinic : 63.00kg SADAF LOUIE - 07/04/2011 8:06 SCREEN MAKER General Info Information Given By : Patient Preferred Communication Mode : Verbal Languages : Syriac SADAF LOUIE - 07/04/2011 8:06 SCREEN MAKER Subjective Pain Symptoms : Yes SADAF LOUIE - 07/04/2011 8:06 SCREEN MAKER Pain Pain Assessment Grid Pain 1 Pain 2 Location : Foot (Comment: big toe [SADAF LOUIE - 07/04/2011 8:06 SCREEN MAKER] ) Knee Laterality : Right Right SADAF LOUIE - 07/04/2011 8:06 SCREEN MAKER SADAF LOUIE - 07/04/2011 8:06 SCREEN MAKER Dependent Habits Tobacco Use/Currently Using : No Exposure to Tobacco Smoke : Other: NEVER Smoking Status : Never smoker SADAF LOUIE - 07/04/2011 8:06 SCREEN MAKER Caffeine Use Grid Caffeine Use : Current Type : Chocolate, Coffee, Soft drinks Frequency : Daily SADAF LOUIE - 07/04/2011 8:06 SCREEN MAKER Recreational Drug Use Grid Drug Use : None SADAF LOUIE - 07/04/2011 8:06 SCREEN MAKER Allergy Allergies (Active) NKA Estimated Onset Date: Unspecified ; Created By: KIRSTEN SILVERIO; Reaction Status: Active ; Category: Drug ; Substance: NKA ; Type: Allergy ; Updated By: KIRSTEN SILVERIO; Reviewed Date: 07/04/2011 8:05 SCREEN MAKER Source: [facility] POWERCHART Document Id: [id number] EN MAKER documented in this encounter Plan of Treatment Not on filedocumented as of this encounter Procedures Procedure Name Priority Date/Time Associated Diagnosis Comme nts DX KNEE RIGHT 3 Routine 07/04/2011 8:28 AM Result s for this VIEWS SCREEN MAKER procedure are i n the results section. documented in this encounter Results DX Knee Right 3 Views (07/04/2011 8:28 AM SCREEN MAKER) Anatomical Region Laterality Modality Lower Extremity, Knee Right Radiographic Imagi ng Specimen (Source) Anatomical Collection Method Collection Time Re ceived Time Location / / Volume Laterality 07/04/2011 8:28 AM SCREEN MAKER Narrative 07/04/2011 8:42 AM SCREEN MAKER Indication Injury. Findings: ??Normal alignment. ??No fract ures. ??Negative right knee. Orlando Daigle M.D. dmp ?D: ? THIS IS AN ELEC TRONICALLY VERIFIED REPORT 07/04/2011 8:42 AM: ??Oralndo Daigle M.D. Procedure Note Orlando Daigle M.D. / ProviderErickson M.D. - 12/20/2016 Indication Injury. Findings: Normal alignment. No fractures . Negative right knee. Orlando Daigle M.D. dmp T: 07/04/2011 08:42 am THIS IS AN ELECTRONICALLY VERIFIED REPORT 07/04/2011 8:42 AM: Orlando Daigle M.D. Martha Kowalski(R), R.TRodrigue(R)(M) IMG DIAGNOSTIC IMAGING PROCEDURES documented in this encounter Visit Diagnoses Not on filedocumented in this encounter
--- OUTSIDE RECORDS SUMMARY | 2022-05-23 11:11 | XMS_ITS | Encounter Summary ---
:1990 Author Organization [facility] Address [address] [place] [address] Care Team Providers Name Role Phone Unavailable Primary Care Provider Unavailable Encounter Details Date Type Department Care Team Description 11/21/2009 Hospital Encounter [facility] MRI Jason Hernandez M.D. [address] [place] [address] Social History Tobacco Use Types Packs/Day [...] or relatives? How often do you attend restorationism or Never 2018 caodaism services? Do you belong to any clubs or Yes 05/02/2019 organizations such as restorationism groups, unions, fraternal or athletic groups, or [...] at Date Recorded Female 08/04/2017 12:14 PM RECEPTIONIST documented as of this encounter Plan of Treatment Not on filedocumented as of this encounter Procedures Procedure Name Priority Date/Time Associated Diagnosis Comme nts MR KNEE LEFT Routine 11/21/2009 8:48 AM Results f or this WITHOUT IV CONTRAST CDT procedur e are in the results section. documented in this encounter Results MR Knee Left without IV Contrast (11/21/2009 8:48 AM CDT) Anatomical Region Laterality Modality Lower Extremity, Knee Left Magnetic Resonance Specimen (Source) Anatomical Collection Method Collection Time Re ceived Time Location / / Volume Laterality 11/21/2009 8:48 AM CDT Narrative 11/21/2009 9:29 AM CDT Multiplanar multisequence MRI images of the left knee were obtained without contrast. ??Comparison is made with prev ious plain films of 11/15/2009. The medial meniscus appears intact. There is blunting of the apex of the pos terior horn of the lateral meniscus and marked attenuation of the anterior h orn and body of the lateral meniscus probably secondary to postoperative late ral meniscectomy changes. The anterior and posterior cruciate liga ments appear intact but the anterior cruciate ligament is not well defined an d appears thinned probably due to partial tears involving the anterior cru ciate ligament. The quadriceps and patellar tendons appe ar intact. ??The medial and lateral collateral ligaments appear intact. ??Th e medial and lateral patellar retinacula appear intact. There is a moderate-sized knee joint eff usion with no evidence of a Morgan's cyst. There is at least moderate chondromalaci a involving the lateral knee joint compartment with minimal irregularity of the articular surface of the lateral femoral condyle and evidence of a focal area of bone marrow edema or contusion involving the lateral aspect o f the lateral femoral condyle with mild adjacent osteophytic spurring which may be the result of degenerative changes involving the lateral knee joint compartment. There is minimal chondromalacia involvin g the medial knee joint compartment. Patellar cartilage appear satisfactorily maintained. There is minimal lateral subluxation and a slight lateral patellar tilt. There is minimal degenerative spurring f rom the patella superiorly and also from the medial femoral condyle anterior ly. Orlando Guzman M.D.dpe ?D: ? THIS IS AN ELEC TRONICALLY VERIFIED REPORT 11/21/2009 9:29 AM: ??Francisco Conner Procedure Note Provider, Erickson, Dev.D. - 12/20/2016F ormatting of this note might be different from the original. Multiplanar multisequence MRI images of the left knee were obtained without contrast. Comparison is made with previo us plain films of 11/15/2009. The medial meniscus appears intact. There is blunting of the apex of the pos terior horn of the lateral meniscus and marked attenuation of the anterior h orn and body of the lateral meniscus probably secondary to postoperative late ral meniscectomy changes. The anterior and posterior cruciate liga ments appear intact but the anterior cruciate ligament is not well defined an d appears thinned probably due to partial tears involving the anterior cru ciate ligament. The quadriceps and patellar tendons appe ar intact. The medial and lateral collateral ligaments appear intact. The medial and lateral patellar retinacula appear intact. There is a moderate-sized knee joint eff usion with no evidence of a Morgan's cyst. There is at least moderate chondromalaci a involving the lateral knee joint compartment with minimal irregularity of the articular surface of the lateral femoral condyle and evidence of a focal area of bone marrow edema or contusion involving the lateral aspect o f the lateral femoral condyle with mild adjacent osteophytic spurring which may be the result of degenerative changes involving the lateral knee joint compartment. There is minimal chondromalacia involvin g the medial knee joint compartment. Patellar cartilage appear satisfactorily maintained. There is minimal lateral subluxation and a slight lateral patellar tilt. There is minimal degenerative spurring f rom the patella superiorly and also from the medial femoral condyle anterior ly. Orlando Guzman M.D.dpe T: 11/21/2009 09:29 am THIS IS AN ELECTRONICALLY VERIFIED REPORT 11/21/2009 9:29 AM: Orlando Guzman M.D. Keily Roberts R.T.(R)(CT), R.T.(R), R.T.(R)(MR) I MG MRI PROCEDURES documented in this encounter Visit Diagnoses Not on filedocumented in this encounter
--- OUTSIDE RECORDS SUMMARY | 2022-05-23 11:11 | XMS_ITS | Encounter Summary ---
:1990 Author Organization [facility] Address [address] [place] [address] Care Team Providers Name Role Phone Unavailable Primary Care Provider Unavailable Encounter Details Date Type Department Care Team Description 06/22/2008 Hospital Encounter [facility]X [facility] FAMILYPRA Jason Hernandez M.D. [address] [place] [address] Social History Tobacco Use Types Packs/Day [...] do you attend islam or Never 2018 mormon services? 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
--- OUTSIDE RECORDS SUMMARY | 2022-05-23 11:11 | XMS_ITS | Encounter Summary ---
:1990 Author Organization [facility] Address [address] [place] [address] Care Team Providers Name Role Phone Unavailable Primary Care Provider Unavailable Encounter Details Date Type Department Care Team Description 04/22/2010 Hospital Encounter [facility]X [facility] URGENTCAR Sahara Peralta M.D. [address] [place] [address] (Wo rk) Social History Tobacco Use Types [...] you attend jehovah's witness or Never 2018 christianity services? Do you [...] Date Recorded Female 08/04/2017 12:14 PM COMMUNICATIONS EDITOR documented as of this encounter Progress Notes Lily Peralta M.D. - 04/22/2010 12:00 AM CDT [id number] HISTORY OF PRESENT ILLNESS This is an 20-year-old female who had a belly button piercing back in December, but states that occasionally the area gets a little sore; she does do hydrogen peroxide to the area any time that happens. Yesterday and today she noticed that there was a little sore spot next to where the piercing is and today it actually broke open and bled a little bit. She is just worried that that might be an infection that needed something more than hydrogen peroxide. VITAL SIGNS Vitals are fine. Reviewed per EMR. PHYSICAL EXAM GENERAL: The patient is awake, alert, and in no acute distress. SKIN: She has a very small spot of blood, dried as a clot, just to the left of the superior opening for this belly button piercing. There is no surrounding erythema or warmth, no tenderness to palpation. There is no pus seen, no bleeding seen at this time, just a little clot there, which might represent maybe an ingrown hair that decided to break open or something of that nature. At any rate, there is no evidence for acute infection at this time. IMPRESSION/REPORT/PLAN 1) Small area of loss of skin integrity as noted, next to belly button piercing. PLAN: We are going to go ahead and give her a prescription for mupirocin ointment to use if this starts to look like it is becoming infected. She could use it prophylactically as well, if she wishes, until it starts healing up and that would not be a terrible idea at any rate, and she is advised that she can go ahead and do this if she wishes; otherwise, a little bit of hydrogen peroxide certainly would be fine too. Follow up as needed if any other concerns or problems. Soraya Pantoja Electronically Signed By:LILY PERALTA MD On 04/28/2010 07:26 PM Source: [facility] MHSDOLBEYNONRADSYS Document Id: [id number] documented in this encounter Miscellaneous Notes Miscellaneous - Thang, Kim M - 04/22/2010 1:43 PM CDT Adult Harness Worker Intake/History Adult Harness Worker Intake/History Entered On: 04/22/2010 13:45 CDT Performed On: 04/22/2010 13:43 CDT by KIM SILVERIO Intake Chief Complaint: possible infected belly button piercing Temperature Oral: 36.7C(Converted to: 98.1DegF) Peripheral Pulse Rate: 72/min Respiratory Rate: 14/min Systolic Blood Pressure: 118mmHg Diastolic Blood Pressure: 56mmHg NIBP Mean: 77mmHg Actual Weight: 61.900kg(Converted to: 136lb 7oz) Dosing Weight Clinic: 61.90kg KIM SILVERIO - 04/22/2010 13:43 CDT Subjective Pain Symptoms: No KIM SILVERIO - 04/22/2010 13:43 CDT Dependent Habits Tobacco Use/Currently Using: No KIM SILVERIO - 04/22/2010 13:43 CDT Caffeine Use Grid Caffeine Use: Current Type: Chocolate, Coffee, Soft drinks Frequency: Daily KIM SILVERIO - 04/22/2010 13:43 CDT Recreational Drug Use Grid Drug Use: None KIM SILVERIO - 04/22/2010 13:43 CDT Allergies Allergies (Active) NKA Estimated Onset Date: Unspecified ; Created By: KIM SILVERIO; Reaction Status: Active ; Category: Drug ; Substance: NKA ; Type: Allergy ; Updated By: KIM SILVERIO; Reviewed Date: 04/22/2010 13:42CDT Source: [facility] Document Id: [id number] CDT!23 documented in this encounter Plan of Treatment Not on filedocumented as of this encounter Visit Diagnoses Not on filedocumented in this encounter
--- OUTSIDE RECORDS SUMMARY | 2022-05-23 11:11 | XMS_ITS | Encounter Summary ---
:1990 Author Organization [facility] Address [address] [place] [address] Care Team Providers Name Role Phone Unavailable Primary Care Provider Unavailable Encounter Details Date Type Department Care Team Description 03/05/2002 Hospital Encounter [facility]X [facility] Zack Ahuja M.D. [address] [phone] (Wo rk) Social History [...] or relatives? How often do you attend sabianism or Never 2018 latter-day services? Do you belong to any clubs or Yes 05/02/2019 organizations such as sabianism groups, unions, fraternal or athletic groups, or [...] at Date Recorded Female 08/04/2017 12:14 PM HAND PAINTER documented as of this encounter Plan of Treatment Not on filedocumented as of this encounter Visit Diagnoses Not on filedocumented in this encounter
--- OUTSIDE RECORDS SUMMARY | 2022-05-23 11:11 | XMS_ITS | Encounter Summary ---
:1990 Author Organization [facility] Address [address] [place] [address] Care Team Providers Name Role Phone Unavailable Primary Care Provider Unavailable Encounter Details Date Type Department Care Team Description 10/03/2007 Hospital Encounter [facility]X [facility] URGENTCAR Marylu Hewitt, PRodrigueARodrigue [address] [place] [address] (Wo rk) Social History Tobacco Use Types [...] do you attend hoahaoism or Never 2018 protestant services? 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
--- OUTSIDE RECORDS SUMMARY | 2022-05-23 11:11 | XMS_ITS | Encounter Summary ---
:1990 Author Organization [facility] Address [address] [place] [address] Care Team Providers Name Role Phone Unavailable Primary Care Provider Unavailable Encounter Details Date Type Department Care Team Description 02/07/2004 Hospital Encounter [facility]X [facility] Shahab Weaver M.D. [address] [place], [place] [address] (Wo rk) Social History Tobacco Use Types [...] do you attend christianity or Never 2018 baptist services? Do you [...] at Date Recorded Female 08/04/2017 12:14 PM ISO COORDINATOR documented as of this encounter Plan of Treatment Not on filedocumented as of this encounter Visit Diagnoses Not on filedocumented in this encounter
--- OUTSIDE RECORDS SUMMARY | 2022-05-23 11:11 | XMS_ITS | Encounter Summary ---
:1990 Author Organization [facility] Address [address] [place] [address] Care Team Providers Name Role Phone Unavailable Primary Care Provider Unavailable Encounter Details Date Type Department Care Team Description 03/12/2007 Hospital Encounter [facility]X [facility] URGENTCAR Provider, [facility] Social History Tobacco Use Types Packs/Day Years [...] do you attend tenriism or Never 2018 scientology services? 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
--- OUTSIDE RECORDS SUMMARY | 2022-05-23 11:11 | XMS_ITS | Encounter Summary ---
:1990 Author Organization [facility] Address [address] [place] [address] Care Team Providers Name Role Phone Unavailable Primary Care Provider Unavailable Encounter Details Date Type Department Care Team Description 10/28/2007 Hospital Encounter [facility]X [facility] FAMILYPRA Jason Hernandez M.D. [address] [place] [address] Social History Tobacco Use Types Packs/Day [...] or relatives? How often do you attend caodaism or Never 2018 voodoo services? Do you belong to any clubs or Yes 05/02/2019 organizations such as caodaism groups, unions, fraternal or athletic groups, or [...] at Date Recorded Female 08/04/2017 12:14 PM LINUX DEVELOPER documented as of this encounter Plan of Treatment Not on filedocumented as of this encounter Visit Diagnoses Not on filedocumented in this encounter
--- OUTSIDE RECORDS SUMMARY | 2022-05-23 11:11 | XMS_ITS | Encounter Summary ---
:[address] [facility] Address [address] [place] [address] Care Team Providers Name Role Phone Unavailable Primary Care Provider Unavailable Encounter Details Date Type Department Care Team Description 01/03/2004 Hospital Encounter [facility]X [facility] FAMILYPRA Alexandr Prather M.D. Social History Tobacco Use Types Packs/Day Years [...] do you attend restorationism or Never 2018 temple services? Do you belong to any clubs [...] at Date Recorded Female 08/04/2017 12:14 PM NURSES SUPERVISOR documented as of this encounter Plan of Treatment Not on filedocumented as of this encounter Visit Diagnoses Not on filedocumented in this encounter
--- OUTSIDE RECORDS SUMMARY | 2022-05-23 11:11 | XMS_ITS | Encounter Summary ---
:1990 Author Organization [facility] Address [address] [place] [address] Care Team Providers Name Role Phone Unavailable Primary Care Provider Unavailable Encounter Details Date Type Department Care Team Description 11/15/2009 Hospital Encounter [facility]X [facility] FAMILYPRA Jason Hernandez M.D. [address] [place] [address] Social History Tobacco Use Types Packs/Day [...] or relatives? How often do you attend adventism or Never 2018 christian services? Do you belong to any clubs or Yes 05/02/2019 organizations such as adventism groups, unions, fraternal or athletic groups, or [...] Date Recorded Female 08/04/2017 12:14 PM TRAVEL AGENT documented as of this encounter Progress Notes Jonatan Hernandez M.D. - 11/15/2009 12:00 AM CDT [id number] CHIEF COMPLAINT / REASON FOR VISIT Left knee pain. HISTORY OF PRESENT ILLNESS 19-year-old female with a history of left knee surgery when she was 8 where she states most of her cartilage was removed based upon a freak accident. Over the past year or 2 she has had diminished deterioration and function of the left knee such that she has lost range of motion. She cannot fully extend the knee and in fact seems to have trouble even walking on it with quite a bit of pain. 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 She had to quit this year during her senior year based upon pain in the knee. She has had some locking and instability, so I think it is definitely time to update with an MRI to clarify the anatomy on patient which mother agrees. Otherwise, there has been no recent history of trauma, just the slow deterioration in function. Patient also complains of right axillary sweating which has been quite excessive. After a long discussion, we gave her some Xerac AC to use nightly with proper instructions. VITAL SIGNS Reviewed and no changes per EMR. PHYSICAL EXAM JOINTS: The left knee exam lacks extension of about 15 to 20 degrees compared to the right knee. Otherwise, generally she is uncomfortable with full flexion or general range of motion. There is quite a bit of crepitans in the knee as well. No tenderness over the medial or collateral lateral ligaments. There seems to be no instability. Negative Aman testing. IMPRESSION / REPORT / PLAN 1) Hyperhidrosis affecting the right axilla. 2) Left knee derangement with previous surgery. PLAN: We obtained an x-ray today which came back significantly abnormal with the radiologist actually recommending an MRI. We have pursued this and should happen in the next week. Otherwise, Xerac AC prescribed for the arm and patient will follow up as needed. Soraya Cross Electronically Signed By:JONATAN HERNANDEZ MD On 11/21/2009 09:03 PM Source: [facility] MHSDOLBEYNANASTASIA Document Id: [id number] documented in this encounter Miscellaneous Notes Miscellaneous - Jonatan Hernandez M.D. - 11/16/2009 11:13 AM CDT Reminder Msg Document Contains Addenda Addendum by JAYLON REEVES on 16 November 2009 12:11:17 CDT LM AT THAT XRAY IS NORMAL BUT TO USE MRI TO CLARIFY. From: JONATAN HERNANDEZ MD To: JAYLON REEVES; Sent: 11/16/2009 11:13:50 CDT Show up: 11/16/2009 11:13:00 CDT Subject: Reminder Msg Actions: Notify patient of results Patient had prior surgery. Tekll her xr is not normal but need MRI to clarify Please Remember to: PATIENT: ( ) Call Patient ( ) Ask Patient to ( ) ( ) Call Relative ( ) Schedule Patient ( ) ( ) Call for Se[employer] ( ) Follow up on Results ( ) Other: PROVIDER: ( ) Call Physician ( ) Call Pharmacist ( ) Call Lab ( ) Other: Special Instructions: Comments: Results: 11/16/2009 08:03:47 CDT >HHI FD RTE XR Knee Left 3 views Source: [facility] POWERCHART Document Id: [id number] Electronically signed by Ruben, [facility] Flower Shop Manager [id number] at 12/31/2016 5:05 AM CDT Miscellaneous - Erma Ortiz, L.P.N. - 11/15/2009 2:40 PM CDT Pediatric Winter Sports Manager Intake/History Pediatric Winter Sports Manager Intake/History Entered On: 11/15/2009 14:49 CDT Performed On: 11/15/2009 14:40 CDT by ERMA ORTIZ LPN Intake Chief Complaint: knee pain, problems with excessive sweating Ambulatory Intake Additional Information: knee surgery at 8yrs old sweating problem became worse last 3 months Temperature Oral: 36.8DegC(Converted to: 98.2DegF) Peripheral Pulse Rate: 64bpm Respiratory Rate: 20br/min Systolic Blood Pressure: 118mmHg Diastolic Blood Pressure: 60mmHg NIBP Mean: 79mmHg BP Reading Side: Right upper extremity Actual Weight: 58.300kg(Converted to: 128lb 8oz, 128.530lb, 2,056.472oz) Dosing Weight Clinic: 58.30kg ERMA ORTIZ JEANETTE 11/15/2009 14:40 CDT General Info Accompanied By: Alone Household 1 Members: Mother, Father Legal Guardian: Xin and Imtiaz-Parents Legal Guardian Relationship to Patient: Mother, Father Preferred Communication Mode: Verbal, Written Languages: Latvian ERMA ORTIZ BLAST SETTER 11/15/2009 14:40 CDT Subjective Pain Symptoms: Yes ERMA ORTIZ JEANETTE 11/15/2009 14:40 CDT Pain Pain Assessment Grid Pain 1 Location: Knee Laterality: Left Intensity: 5 Time Pattern: Chronic, Intermittent Onset: Gradual Quality: Aching, Pressure, Sharp Pain Radiation: No Aggravating Factors: Movement Alleviating Factors: Cold therapy, Immobilization, Repositioning, Rest Associated Symptoms: None Interventions: Repositioning, Rest ERMA ORTIZ JEANETTE 11/15/2009 14:40 CDT Effects of Pain Grid Appetite: None Concentration: Mild Daily Life: Severe Emotions: None Relationships: None Sleep: Moderate Work/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 [ERMA ORTIZ JEANETTE 11/15/2009 14:40 CDT] ) (Comment: some days pain is worse than others [ERMA ORTIZ BLAST SETTER 11/15/2009 14:40 CDT] ) Dependent Habits Tobacco Use/Currently Using: No Tobacco Use/Last 12 months: No Alcohol Use: No ERMA ORTIZ JEANETTE 11/15/2009 14:40 CDT Caffeine Use Grid Caffeine Use: Current Type: Chocolate, Coffee, Soft drinks Frequency: Daily ERMA ORTIZ JEANETTE 11/15/2009 14:40 CDT (Comment: chocolate-one weeklycoffee-one cup weeklysoda- daily (1 can) [ERMA ORTIZ JEANETTE 11/15/2009 14:40 CDT] ) Recreational Drug Use Grid Drug Use: None ERMA ORTIZ JEANETTE 11/15/2009 14:40 CDT Allergy [facility] Document Id: [id number] CDT!56 documented in this encounter Plan of Treatment Not on filedocumented as of this encounter Procedures Procedure Name Priority Date/Time Associated Diagnosis Comme nts DX KNEE LEFT 3 Routine 11/15/2009 3:27 PM Results for this VIEWS CDT procedure are i n the results section. SURGICAL PATHOLOGY Routine 10/28/2007 12:00 AM Re sults for this CDT procedure are i n the results section. documented in this encounter Results DX Knee Left 3 Views (11/15/2009 3:27 PM CDT) Anatomical Region Laterality Modality Lower Extremity, Knee Left Radiographic Imagi ng Specimen (Source) Anatomical Collection Method Collection Time Re ceived Time Location / / Volume Laterality 11/15/2009 3:27 PM CDT Narrative 11/16/2009 7:48 AM CDT Left knee. INDICATION Pain FINDINGS Chronic-appearing cortical protuberance with cortical medullary continuity along the anterior peripheral margin of the medial aspect of the articular surface of the medial knee joint as demo nstrated on the sunrise views of the knee, this could be related to remote tr auma or possible exostosis, clinical correlation with duration of symptomatol ogy would be helpful. ??If clinically indicated MRI of the left knee may be he lpful for further characterization. Negative for acute fractures. Derik Pacheco, ?? jws ?D: 0 11/16/2009T: 11/16/2009 07:48 am M.D. ? THIS IS AN ELEC TRONICALLY VERIFIED REPORT 11/16/2009 7:48 AM: ??Dev Anderson Procedure Note Derik Pacheco M.D. - 12/20/2016Forma tting of this note might be different from the original. Left knee. INDICATION Pain FINDINGS Chronic-appearing cortical protuberance with cortical medullary continuity along the anterior peripheral margin of the medial aspect of the articular surface of the medial knee joint as demo nstrated on the sunrise views of the knee, this could be related to remote tr auma or possible exostosis, clinical correlation with duration of symptomatol ogy would be helpful. If clinically indicated MRI of the left knee may be he lpful for further characterization. Negative for acute fractures. barbara Anderson T: 07:48 am Soraya THIS IS AN ELECTRONICALLY VERIFIED REPORT 11/16/2009 7:48 AM: Francisco Anderson Karol Kowalski(Johann) [facility] Pathology Surgical Pathology (10/28/2007 12:00 AM CDT) Specimen (Source) Anatomical Location Collection Method / Collectio n Time Received Time / Laterality Volume 10/28/2007 Narrative [facility] - 01/19/20 11 1:06 PM CDT PATIENT IMAGES Choose the Image button to view related documents. Historical Provider LAB SURG PATH ORDERABLES Performing Organization Address City/State/ZIP Code Phon e Number [facility] documented in this encounter Visit Diagnoses Not on filedocumented in this encounter
--- OUTSIDE RECORDS SUMMARY | 2022-05-23 11:11 | XMS_ITS | Encounter Summary ---
:1990 Author Organization [facility] Address [address] [place] [address] Care Team Providers Name Role Phone Unavailable Primary Care Provider Unavailable Encounter Details Date Type Department Care Team Description 09/23/2007 Hospital Encounter [facility] Jason Hernandez M.D. [address] [place] [address] Social History Tobacco [...] or relatives? How often do you attend gnosticist or Never 2018 restorationist services? Do you belong to any clubs or Yes 05/02/2019 organizations such as gnosticist groups, unions, fraternal or athletic groups, or [...] at Date Recorded Female 08/04/2017 12:14 PM CONTROL OPERATOR documented as of this encounter Plan of Treatment Not on filedocumented as of this encounter Visit Diagnoses Not on filedocumented in this encounter
--- OUTSIDE RECORDS SUMMARY | 2022-05-23 11:11 | XMS_ITS | Encounter Summary ---
:1990 Author Organization [facility] Address [address] [place] [address] Care Team Providers Name Role Phone Unavailable Primary Care Provider Unavailable Encounter Details Date Type Department Care Team Description 06/21/2003 Hospital Encounter [facility] Alexandr [...] or relatives? How often do you attend jew or Never 2018 anabaptism services? Do you belong to any clubs or Yes 05/02/2019 organizations such as jew groups, unions, fraternal or athletic groups, or [...] at Date Recorded Female 08/04/2017 12:14 PM DERRICKMAN HELPER documented as of this encounter Plan of Treatment Not on filedocumented as of this encounter Visit Diagnoses Not on filedocumented in this encounter
--- OUTSIDE RECORDS SUMMARY | 2022-05-23 11:11 | XMS_ITS | Encounter Summary ---
:1990 Author Organization [facility] Address [address] [place] [address] Care Team Providers Name Role Phone Unavailable Primary Care Provider Unavailable Encounter Details Date Type Department Care Team Description 10/18/2009 Hospital Encounter [facility] Jason Hernandez M.D. [address] [place] [address] Social History Tobacco Use Types Packs/Day [...] or relatives? How often do you attend moravian or Never 2018 taoism services? 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
--- OUTSIDE RECORDS SUMMARY | 2022-05-23 11:11 | XMS_ITS | Encounter Summary ---
:1990 Author Organization [facility] Address [address] [place] [address] Care Team Providers Name Role Phone Unavailable Primary Care Provider Unavailable Encounter Details Date Type Department Care Team Description 02/21/2010 Hospital Encounter [facility] Sahara Matthew M.D. [address] [place] [phone] (Wo rk) Social History Tobacco [...] or relatives? How often do you attend temple or Never 2018 synagogue services? Do you belong to any clubs or Yes 05/02/2019 organizations such as temple groups, unions, fraternal or athletic groups, or [...] at Date Recorded Female 08/04/2017 12:14 PM SLUNK SKIN CURER documented as of this encounter Plan of Treatment Not on filedocumented as of this encounter Visit Diagnoses Not on filedocumented in this encounter
--- OUTSIDE RECORDS SUMMARY | 2022-05-23 11:11 | XMS_ITS | Encounter Summary ---
:1990 Author Organization [facility] Address [address] [place] [address] Care Team Providers Name Role Phone Unavailable Primary Care Provider Unavailable Encounter Details Date Type Department Care Team Description 12/30/2001 Hospital Encounter [facility] Estrellita Jones, MELA, C.N.P., M.S.N. Social History Tobacco Use Types Packs/Day Years [...] or relatives? How often do you attend quaker or Never 2018 islam services? Do you belong to any clubs or Yes 05/02/2019 organizations such as quaker groups, unions, fraternal or athletic groups, or [...] Date Recorded Female 08/04/2017 12:14 PM SENIOR SYSTEMS ARCHITECT documented as of this encounter Plan of Treatment Not on filedocumented as of this encounter Visit Diagnoses Not on filedocumented in this encounter
--- OUTSIDE RECORDS SUMMARY | 2022-05-23 11:11 | XMS_ITS | Encounter Summary ---
:1990 Author Organization [facility] Address [address] [place] [address] Care Team Providers Name Role Phone Unavailable Primary Care Provider Unavailable Encounter Details Date Type Department Care Team Description 11/26/2008 Hospital Encounter [facility] Jason Hernandez M.D. [address] [place] [address] Social History Tobacco [...] do you attend zoroastrian or Never 2018 confucianism services? Do you [...] at Date Recorded Female 08/04/2017 12:14 PM GRADUATE ADVISOR documented as of this encounter Plan of Treatment Not on filedocumented as of this encounter Visit Diagnoses Not on filedocumented in this encounter
--- OUTSIDE RECORDS SUMMARY | 2022-05-23 11:11 | XMS_ITS | Encounter Summary ---
:1990 Author Organization [facility] Address [address] [place] [address] Care Team Providers Name Role Phone Unavailable Primary Care Provider Unavailable Encounter Details Date Type Department Care Team Description 07/06/2008 Hospital Encounter [facility] E[facility] Owen Claros M.D. [address] [place] [phone] (Wo rk) Social History Tobacco Use Types [...] or relatives? How often do you attend methodist or Never 2018 methodist services? 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
--- OUTSIDE RECORDS SUMMARY | 2022-05-23 11:11 | XMS_ITS | Encounter Summary ---
:1990 Author Organization [facility] Address [address] [place] [address] Care Team Providers Name Role Phone Unavailable Primary Care Provider Unavailable Encounter Details Date Type Department Care Team Description 09/23/2000 Hospital Encounter [facility] Estrellita [...] do you attend islam or Never 2018 rastafarian services? Do you belong to any clubs [...] at Date Recorded Female 08/04/2017 12:14 PM VESSEL MANAGER documented as of this encounter Plan of Treatment Not on filedocumented as of this encounter Visit Diagnoses Not on filedocumented in this encounter
--- OUTSIDE RECORDS SUMMARY | 2022-05-23 11:11 | XMS_ITS | Encounter Summary ---
:[address] [facility] Address [address] [place] [address] Care Team Providers Name Role Phone Unavailable Primary Care Provider Unavailable Encounter Details Date Type Department Care Team Description 10/07/2009 Hospital Encounter [facility] Jason Hernandez M.D. [address] [place] [address] Social History Tobacco Use Types Packs/Day [...] do you attend sikhism or Never 2018 buddhism services? Do you [...] at Date Recorded Female 08/04/2017 12:14 PM MAGNET VALVE ASSEMBLER documented as of this encounter Plan of Treatment Not on filedocumented as of this encounter Visit Diagnoses Not on filedocumented in this encounter
--- OUTSIDE RECORDS SUMMARY | 2022-05-23 11:11 | XMS_ITS | Encounter Summary ---
:1990 Author Organization [facility] Address [address] [place] [address] Care Team Providers Name Role Phone Unavailable Primary Care Provider Unavailable Encounter Details Date Type Department Care Team Description 01/08/2003 Hospital Encounter [facility] Alexandr [...] or relatives? How often do you attend advent or Never 2018 gnosticist services? Do you belong to any clubs or Yes 05/02/2019 organizations such as advent groups, unions, fraternal or athletic groups, or [...] at Date Recorded Female 08/04/2017 12:14 PM MACHINE FASTENER documented as of this encounter Plan of Treatment Not on filedocumented as of this encounter Visit Diagnoses Not on filedocumented in this encounter
--- OUTSIDE RECORDS SUMMARY | 2022-05-23 11:11 | XMS_ITS | Encounter Summary ---
:1990 Author Organization [facility] Address [address] [place] [address] Care Team Providers Name Role Phone Unavailable Primary Care Provider Unavailable Encounter Details Date Type Department Care Team Description 04/09/2002 Hospital Encounter [facility] Estrellita [...] do you attend islam or Never 2018 mandaeism services? Do you belong to any clubs [...] at Date Recorded Female 08/04/2017 12:14 PM CASE THERAPIST documented as of this encounter Plan of Treatment Not on filedocumented as of this encounter Visit Diagnoses Not on filedocumented in this encounter
[2022-05-23 12:20] LABS: Vitamin D 25 Hydroxy* 31 ng/mL (30-80)
[2022-05-23 12:21] LABS: Free T4 Free Thyroxine* 0.94 ng/dL (0.70-1.85)
== END 2022-05-23 11:05 | disposition home or self-care (01) ==
PROVIDERS: PCP Family Medicine; Visit Provider Psychiatry & Neurology Psychiatry
DX: F32.9 Major depressive disorder, single episode, unspecified (principal)
CPT/HCPCS: 36415; 82306; 84439; 84443

== ENCOUNTER 2024-12-01 18:26 | Outpatient (CLI) | payer OTHER, SELFPAY | END 2024-12-01 18:27 | disposition home or self-care (01) | LOC: KYNREF 18:27 | PROVIDERS: PCP Nurse Practitioner Family; Visit Provider Nurse Practitioner Family | DX: S61.256A Open bite of right little finger without damage to nail, initial encounter (principal); W55.01XA Bitten by cat, initial encounter; Y92.89 Other specified places as the place of occurrence of the external cause; Y99.8 Other external cause status | CPT/HCPCS: 86382 ==

== ENCOUNTER 2025-02-02 09:04 | Outpatient (CLI) | payer OTHER, SELFPAY ==
[2025-02-03 19:45] LABS: HPV Source Cervix
== END 2025-02-02 09:05 | disposition home or self-care (01) ==
PROVIDERS: PCP Nurse Practitioner Family; Visit Provider Nurse Practitioner Family
DX: Z12.4 Encounter for screening for malignant neoplasm of cervix (principal); Z11.51 Encounter for screening for human papillomavirus (HPV)
CPT/HCPCS: 87624; 87625; 88141; 88142